=== PATIENT | female | born 1955 | race Caucasian/White ===

== ENCOUNTER 2023-12-12 14:40 | Inpatient (IN) | payer MEDICARE, BC, OTHER, SELFPAY ==
[2023-12-12] VITALS (26 sets, daily range): BP systolic 106–173; BP diastolic 63–111; BMI 25.8; BMI 29.6
--- NOTE | 2023-12-12 10:47 | ED.GENMED ---
History of Present Illness
General
Chief Complaint: Change in Mental Status
Source: patient and ambulance crew
Exam Limitations: altered mental status
Time Seen by Provider: 12/12/23 10:37
Nursing documentation reviewed up to this point in time: agreed with
Travel History
Have you had any contact with someone who has COVID-19?: Yes
Comment: roommates
Do you have any symptoms of coronavirus? Fever > 100 degrees, chills, cough, shortness of breath, sore throat, loss of taste or smell, muscle aches, or headache?: Unable to Answer
Symptoms:: change in mental status
History of Present Illness
History of Present Illness:
68-year-old female presents the emergency department due to altered mental status. Her baseline status is unknown. This morning it was noted that she was not acting herself, confused with decreased responsiveness. Patient answers questions and
knows her birthday, and denies complaints.
Past History
Past History
ED Past Medical History: CHF, CVA, HTN, Hypercholesterolemia, IDDM, Renal failure (Chronic kidney disease) and Other (Cellulitis, bacteremia, morbid obesity, chronic lower extremity dermatitis, chronic ambulatory dysfunction, right lower extremity
DVT)
ED Past Surgical History: Other
Social History
Tobacco: Non-smoker
Alcohol: None
Drug: None
Living: half-way
Employment: Retired
Family History
Family History: Other and Unable to obtain
Review of Systems
Review of Systems
Allergies reviewed?: Yes
All Other Systems: Not applicable
Phy Exam
Physical Exam
Physical Exam:
Physical Exam
General: Afebrile
Neck: supple. no meningeal signs. normal posterior pharynx
Heart: s1/s2 bradycardia, no murmur. equal radial
pulses.
HEENT: Pupils equal round reactive to light, EOMI
Lungs: no acute respiratory distress. clear bilaterally
Abdomen: normal bowel sounds. not tender. no CVAT
Neuro: alert and oriented to person and birthday. no focal neurological deficits cranial nerves II through XII intact, left hand contracted
Skin: no rash
Psychiatric: Answers questions to her name
Extremities: no edema. no calf tenderness. negative homans. good distal pulses
Scores
NIH Stroke Score
Level of Consciousness: 1 - Arousable
LOC Questions: 2-Neither correct
LOC Commands: 0-Performs both correctly
Best Horizontal Gaze: 0-Normal
Visual Del Toro: 0=Normal, no visual loss
Facial Palsy: 0=Normal, symmetrical
Motor - Right Arm: 0=No drift 10 seconds
Motor - Left Arm: 0=No drift 10 seconds
Motor - Right Le-No drift 5 seconds
Motor - Left Le-No drift 5 seconds
Limb Ataxia: 0-Absent
Sensation: 0-Normal
Best Language: 1-Mild aphasia
Dysarthria: 1-Mild slurring
Extinction and Inattention: 0-No abnormality
Total Score:: 5
MRS Score
Modified [place] Scale (mRS): Moderately severe disability. Unable to attend to bodily needs/walk.
Score: 4
Thrombolytic Contraindication
Inclusion and Exclusion criteria reviewed: Yes
Reasons for NON-Tx with Thrombolytics ABSOLUTE Exclusions: Patient taking oral anticoagulant and last dose within 48 hours
Course
Orders/Labs/Results
Orders:
Orders
12/12/23 Breakfast
NPO
Allow oral meds: Yes
Allow clear liquids: No
12/12/23 10:44
Straight cath- Treatment ONCE
12/12/23 10:46
CT Head W/o Iv Contrast Urgent
Comment:
Reason For Exam: altered mental status
12/12/23 10:47
Electrocardiogram (*1) Urgent
Reason for Study: Bradycardia / Tachycardia
EKG- Treatment ONCE
12/12/23 10:54
Ammonia Urgent
COVID-19 Antigen Urgent
Source: Nasal Swab
Cardiovascular Evaluation Urgent
Complete Blood Count/With Diff Urgent
Comprehensive Metabolic Panel Urgent
Ferritin Urgent
Folate Urgent
Glycohemoglobin (HgbA1c) Urgent
Lactic Acid Q4H
Comment: CANCEL 2nd LACTIC ACID IF 1st LACTIC ACID IS LESS THAN 2
TSH Reflex To Free T4 Urgent
Vitamin B12 Urgent
Blood Culture Q30M
DARBY Source: Blood/Venous
Specimen Description:
Blood Culture Q30M
DARBY Source: Blood/Venous
Specimen Description:
Influenza A+B Rapid Molecular Urgent
DARBY Source: Nasal Swab
Specimen Description:
12/12/23 10:59
Urinalysis Reflex To Culture Urgent
Date Specimen was Collected: 12/12/23
Time Specimen was Collected: 10:58
Urine Microscopic Reflex Cult Urgent
Urine Culture Urgent
DARBY Source: U
Specimen Description:
Date Specimen was Collected: 12/12/23
Time Specimen was Collected: 10:58
12/12/23 11:11
CR Chest Portable - 1 View Urgent
Comment:
Reason For Exam: hypoxia
Reason Study Needs to be Portable: Patient Unstable
12/12/23 13:21
EEG Routine Routine
Reason for Exam: change in mental status
12/12/23 13:29
MR Brain Without Contrast Routine
Comment:
Reason For Exam: new stroke
Recent pill cam endoscopy?: No
US Cerebrovascular Routine
Comment:
Reason For Exam: New stroke
12/12/23 13:30
[facility] Routine
Comment:
Reason For Exam: new stroke, blind?
Recent pill cam endoscopy?: No
12/12/23 14:05
Add On- LAB Routine
Tests Added?: folate, ferritin, TSH reflex, B12, lipid panel, hbA1c
12/12/23 14:12
Admit/Transfer Patient As Directed
Co-Sign Provider:
Level of Care: Inpatient admission
Assign to:: IMU- Intermediate Care
Physician / Group: yaya gray
Diagnosis: CVA
Reason for Hospitalization: CVA
Expected length of stay greater than two midnights?: Yes
ELOS- Estimated Length of Stay in days: 3
I certify the patient meets the requirements for IP care: Yes
12/12/23 14:13
Code Status As Directed
Resuscitation Status: Full Code
Clopidogrel Bisulfate [Plavix] 300 mg PO NOW STA
12/12/23 14:40
DNR Bracelet Application ONCE
12/12/23 14:40
Code Status As Directed
Resuscitation Status: Do not resuscitate
Reached after discussion with pt or family/Healthcare POA: Yes
12/12/23 14:42
CARDIOLOGY CONSULT Routine
Consulting Provider: Serafin Nguyen
Was physician already notified: Yes
NEUROLOGY CONSULT Urgent
Consulting Provider: Black Lorenzo
Was physician already notified: Yes
12/12/23 15:28
Procalcitonin Stat
PCT Algorithmm Indication: Respiratory
12/12/23 17:35
Acetaminophen [Tylenol/Feverall] 650 mg RECTAL Q4HPRN PRN
Acetaminophen [Tylenol] 650 mg PO Q4HPRN PRN
Dextrose 50%-Water [Dextrose 50% Syringe] 12.5 grams IV [id number] PRN
Glucagon [GlucaGen] 1 mg IM PRN PRN
Insulin Aspart Corrective Low [Novolog Flexpen-Low Resistance] See Protocol SC AC
12/12/23 17:35
Case Management Consult ONCE
Case Management Consult: Discharge Planning
Comment: stroke/tia
DIETARY CONSULT Routine
Reason for Consult: stroke/TIA
Cam Maker Urgent
Activity As Directed
Activity Level: As Tolerated
Bedside Glucose Monitoring As Directed
Frequency: AC&HS
Comment: Change to q6h if pt on TPN, tube feeding or not eating
NIH Stroke Scale As Directed
Directions: Per protocol
Comment: every shift and with any change in condition or mental status
Neurological Checks As Directed
Frequency: q4h
Additional Instructions:: q4h x 24h upon admission to the floor, then qshift & with any change in condition
and mental status
Patient Education As Directed
Type: Stroke education packet
Comment: provide to patient and family
Pneumatic Compression Sleeves As Directed
Type: Thigh high
Swallow Screening CVA/TIA ONLY As Directed
Comment: NPO until swallowing screening completed
If patient FAILS swallow screening:: NPO, Speech Therapy consult, Aspiration Precautions
If patient PASSES swallow screening, diet:: 1600 [address]/ 13 CHO Diabetic
Vital Signs As Directed
Frequency: Per unit guidelines
Ot Eval And Treat Routine
Pt Eval And Treat Routine
Activity Level: As Tolerated
Speech Therapy Eval & Treat Routine
DX Deep Vein Thrombosis Video Routine
12/12/23 18:00
Artificial Tears (Pf) [Refresh Eye Drops (Pf)] 1 drops BOTH EYES QID
Piperacillin/Tazo 2.25 Gram [Zosyn] 2.25 grams in 50 ml IV Q6H
12/12/23 19:00
Atorvastatin [Lipitor] 40 mg PO QPM
12/13/23 05:40
Basic Metabolic Panel IN AM
Complete Blood Count/No Diff IN AM
12/14/23 05:48
Complete Blood Count/No Diff IN AM
12/15/23 06:00
Basic Metabolic Panel IN AM
Complete Blood Count/No Diff IN AM
12/16/23 06:00
Basic Metabolic Panel IN AM
Complete Blood Count/No Diff IN AM
12/17/23 06:00
Basic Metabolic Panel IN AM
Complete Blood Count/No Diff IN AM
Abnormal Lab Results
12/12/23 12/12/23
10:54 10:59
MPV 11.8 H fL
(7.4-10.4)
Absolute Neuts (auto) 7.4 H 10^3/uL
(1.4-6.5)
Neutrophils % 77.4 H %
(42.2-75.2)
Lymphocytes % 14.1 L %
(20.5-51.1)
BUN 65 H mg/dl
(7-17)
Creatinine 2.1 H mg/dL
(0.6-1.0)
Glucose 180 H mg/dl
(70-99)
Hemoglobin A1c 8.1 H %
(4.0-5.6)
Ferritin 432.0 H ng/ml
(11.1-264.0)
Alkaline Phosphatase 129 H U/L
(38-126)
Ammonia < 9 L umol/L
(9-30)
Leukocyte Esterase Rfl 1+ A
(Negative)
Urine Bacteria (Reflex) Few A
(Negative)
12/12/23 10:54
12/12/23 10:54
Vital Signs
Initial and Last Documented VS:
Initial Vital Signs
Pulse Resp BP Pulse Ox
42 16 114/79 100
12/12/23 10:31 12/12/23 10:31 12/12/23 10:31 12/12/23 10:31
Last Documented Vital Signs
Temp Pulse Resp BP Pulse Ox
97.9 F 61 14 170/97 94
12/14/23 15:33 12/14/23 12:00 12/14/23 12:00 12/14/23 12:00 12/14/23 08:00
MDM/Problems Addressed
Differential Diagnosis Includes:
Acute CVA, intracranial hemorrhage, slow atrial fibrillation
MDM/Problems Addressed:
68-year-old female with atrial fibrillation with slow ventricular response, acute CVA, unclear last known normal, taking Eliquis, not a candidate for IAT or TNK based on Eliquis treatment as well as no lateralizing symptoms and MRS greater than 3.
Chronic conditions affecting care: DM, HTN, Arrhythmia, Neurological disorder (Prior CVA) and Kidney disease
Acute Exacerbation and/or Progression of Chronic Illness: DM, HTN, Arrhythmia, Neurological disorder (Prior CVA) and Kidney disease
*Radiology
Radiology exam reviewed: radiology read reviewed (CT head shows suspected acute infarct in the left parieto-occipital lobe)
*Pulse Oximetry
Patient hypoxic: no
*EKG
Interpreted by ED Provider?: Yes
EKG Intrepretation Date: 12/14/23
EKG Intrepretation Time: 11:04
Interpretation: abnormal
Comparison EKG: changes noted
Heart Rate: 47
Rate: bradycardiac
Rhythm: a-fib
[place]: normal axis
Interval: normal interval
QRS Pattern: normal QRS
Ischemia: no ischemia
*Personalized Living Manager Nurse Interpretation
Rate: bradycardiac
Heart Rate: 44
Rhythm: a-fib
*Critical Care Note
Total Time (30-74mins, 75-104mins- exclusive of procedures): 30
comment:
Critical care statement: A total of 30 minutes of critical care time was provided for this patient. This includes management of unstable vital signs, evaluation of the patient at bedside, reviewing the patient's pertinent medical records, discussion
with consultants, review of old EKGs and review of pertinent medical records. This time with separate from time utilized to perform the aforementioned documented procedures
Data Reviewed
Review of Other/Old Records Reveals: Labs (Prior creatinine 6.1 on 08/27/2022)
Source: records
Prescriptions/Medications Considered But Not Given:
TNK considered, but not indicated
Patient Management
Social determinants of health affecting care: Living situation
Discussion with other providers: Hospitalist and Bladder Cleaner (Neurology, Dr. Lorenzo)
Escalation/DeEscalation of care consider admission/obs:
Admit indicated
ED Attending Note
-
Portions of this chart may have been created with voice recognition software.� Occasional wrong word or��sound alike� substitutions may have occurred due to the inherent limitations of voice recognition software.
Discharge Plan
Departure
Patient Disposition: Admit
Date of Disposition: 12/12/23
Time of Disposition: 12:11
Admit to: IMU
Presentation/result/management discussed w/ accepting MD/DO: Hospitalist
Patient with high blood pressure during this ER visit?: No
Condition: Fair
Discharge Problem:
Acute cerebrovascular accident (CVA), Atrial fibrillation with slow ventricular response
Interventions
Interventions:
*Risk Screen - Suicide Last Done: 12/12/23 10:31
*General Assessment Last Done: 12/12/23 10:31
*Neglect/Abuse Screening Last Done: 12/12/23 10:31
*ED COVID-19 Vaccine History Last Done: 12/12/23 10:31
*Nursing Disposition Last Done: 12/12/23 17:46
ED- Pulmonary Assessment Last Done: 12/12/23 11:53
ED- Neurological Assessment Last Done: 12/12/23 11:53
ED- Cardiac Assessment Last Done: 12/12/23 11:53
ED Swallowing Screen Last Done: 12/12/23 11:53
Discharge Date and Time
Discharge Date/Time: 12/12/23 17:47
[2023-12-12 11:06] LABS: % Basophils 0.5 % (0-2); % Eosinophils 2.1 % (0-6); % Immature Granulocytes 0.3 % (0-0.5); % Lymphocytes 14.1 % (20.5-51.1); % Monocytes 5.6 % (1.7-9.3); % Neutrophils 77.4 % (42.2-75.2); Absolute Basophils 0.1 10^3/uL (0-0.2); Absolute Eosinophils 0.2 10^3/uL (0-0.7); Absolute Lymphocytes 1.4 10^3/uL (1.2-3.4); Absolute Monocytes 0.5 10^3/uL (0.1-0.6); Absolute Neutrophils 7.4 10^3/uL (1.4-6.5); Hematocrit 39.3 % (37.0-47.0); Mean Corp Hgb Conc. 33.1 g/dL (33.0-37.0); Mean Corpuscular Hgb 28.9 pg (27.0-31.0); Mean Corpuscular Volume 87.3 fL (81.0-99.0); Mean Platelet Volume 11.8 fL (7.4-10.4); Nucleated Red Blood Cells % 0 %; Platelet Count 226 10^3/uL (130-400); White Blood Cell Count 9.6 10^3/uL (4.8-10.8)
[2023-12-12 11:17] LABS: ALT (SGPT) 13 U/L (0-35); AST (SGOT) 17 U/L (14-36); Albumin 3.9 g/dl (3.5-5.0); Alkaline Phosphatase 129 U/L (38-126); Blood Urea Nitrogen 65 mg/dl (7-17); Calcium 9.5 mg/dl (8.4-10.2); Carbon Dioxide 23 mmol/L (22-30); Chloride 107 mmol/L (98-107); Estimated Creatinine Clearance 23 ml/min; Glucose 180 mg/dl (70-99); Potassium 4.2 mmol/L (3.5-5.1); Sodium 138 mmol/L (135-145); Total Bilirubin 0.4 mg/dl (0.2-1.3); Total Protein 7.3 g/dl (6.3-8.2); eGFR 25.04
[2023-12-12 11:18] LABS: Urine Albumin Trace (Neg - Trace); Urine Bilirubin Negative (Negative); Urine Character Clear (Clear); Urine Color Yellow; Urine Glucose Negative (Negative); Urine Ketone Negative (Negative); Urine Leukocyte 1+ (Negative); Urine Nitrite Negative (Negative); Urine Occult Blood Negative (Negative); Urine Urobilinogen Negative (Neg - 1+)
[2023-12-12 11:18] LABS: Ammonia < 9 umol/L (9-30); Lactic Acid 1.2 mmol/L (0.7-2.0)
[2023-12-12 11:25] LABS: COVID-19 Antigen Negative (Negative)
[2023-12-12 11:53] LABS: Urine Bacteria Few (Negative); Urine Red Blood Cell 0-2 /HPF (0-2); Urine Squamous Cell 0-2 /LPF (Few)
--- NOTE | 2023-12-12 12:40 | CON.NEURO4 ---
Addendum entered and electronically signed by Black Lorenzo MD 12/12/23 14:42:
I saw and evaluate the patient reviewed note by Jacqueline Snow agree with the findings the following comments:
Patient is a 68-year-old woman with a past medical history of previous left-sided ischemic stroke, hypertension, hyperlipidemia, diabetes mellitus, CKD, peripheral neuropathy, morbid obesity presented to hospital with change in mental status and
concern for acute stroke. Speaking with the [facility] staff that she has baseline generally wheelchair-bound but typically can hold conversation with some orientation deficits. Last known normal is unclear but possibly as early as 7 AM this
morning shortly after this noted to not be conversational after nap, in the ER noted to be bradycardic. Last dose of Eliquis was this morning. Patient unable to give any reliable history due to mental status difficulty and aphasia.
Neurologic examination shows a patient who is drowsy but awakens easily with some mild noxious stimulation she is able to say her name and says the correct month and day of her birthdate but not the correct year, she does show perseveration showing
evidence of aphasia.
There is mild dysarthria, resting gaze is midline extraocular's are full, he has no blink to threat in any quadrant of vision and appears to have significant visual loss in both eyes, pupils are 3 mm and do not show any appreciable reaction to light
bilaterally. Smile is symmetric.
Arms raise and symmetric manner with no pronator drift and 5/5 shoulder abduction, 4/5 hip flexion bilaterally no asymmetric motor deficits seen.
CT head noncontrast shows a acute left parietal occipital ischemic stroke without hemorrhage.
Assessment: Likely new left-sided ischemic stroke producing aphasia and confusion, risk factors include CHF atrial fibrillation hypertension diabetes and previous stroke. Appears to have significant visual loss possibly from baseline. Would not be
a candidate for thrombolytics given Eliquis dose this morning and does not have any lateralizing deficits in addition to modified [place] scale of 3 or more baseline so she would not be a thrombectomy candidate.
Recommendations
-Will need speech therapy evaluation for dysarthria and dysphagia
-Recommend NG tube for antiplatelet clopidogrel 300 mg once and then 75 mg daily given acute ischemic stroke as appears aspirin produces anaphylaxis
-Hold Eliquis
-Permissive hypertension goal less than 220/120 until tomorrow morning
-Check carotid ultrasound
-Check MRI of the brain and MRA of the head without contrast
-Monitor on cardiac telemetry
-Check TTE
-Neurologic checks and NIH scales
-Goal normoglycemia
Will follow
Original Note:
Documented by User: Jacqueline Doherty NP 12/12/23 14:14
Consultation - Neurology 4
-
CONSULTING PHYSICIAN: Joana Lorenzo MD
REFERRING PHYSICIAN: ER/Dr. Hillman
DICTATED BY: MARY Del Castillo
DATE/TIME OF REQUEST: 12/12/23
DATE/TIME OF CONSULTATION: 12/12/23
Reason for Consultation: Change in mental status
History of Present Illness:
This is a 68-year-old female who has presented to the hospital from [facility] with report of a change in mental status. Patient is unable to provide any information and this information is obtained from medical records and [facility] nursing
staff. MD staff report that at baseline, the patient is wheelchair bound. She is typically alert, oriented x2-3, and can hold a conversation. Staff report that yesterday (12/11/23) she seemed at her baseline. This morning (12/12/23), she woke up
around 0700 and seemed at her baseline, she was able to take her medications including her Eliquis. Staff report that her breakfast arrived about an hour or so later and she didn't eat anything. Then she appeared to be napping for a couple of hours.
They went to check on her and she seemed minimally responsive/wasn't able to converse as usual, prompting them to send her to the ER for evaluation. CT head was obtained in the ER and is suggestive of an acute left parieto-occipital lobe ischemic
stroke. She is notably bradycardic in the 40's-50's. She is not a candidate for TNK/IAT due to her last dose of Eliquis was this morning, clear demonstration of a stroke already on CT head imaging, and no evidence of LVO. NIHSS is an 11. Patient is
unable to stay alert to provide answers to review of systems questions. There is no documented history of Afib.
Past Medical History: Chronic right parieto-occipital lobe ischemic infarcts, CHF, HTN, HLD, NIDDM requiring insulin, retinopathy, neuropathy, CKD 3, Cellulitis, bacteremia, morbid obesity, chronic lower extremity dermatitis/lymphedema/venous
stasis, chronic ambulatory dysfunction, right lower extremity DVT, anemia
Surgical History: Unknown.
Family History: Unknown.
Social History: No tobacco, alcohol, or illicit drug use.
Allergies: Aspirin, Vancomycin, pneumococcal vaccine, latex, coconut, adhesive tape.
Home Medications: See below.
Review of Symptoms:
�Per the HPI.�Unable to obtain a ROS due to altered mental status.
Physical Exam:
The patient is afebrile, abdomen is nondistended, breathing is unlabored, skin is cool and dry, no edema. PVD discoloration BLE. She is bradycardic in the 40's-50's on cardiac monitoring.
NIH Stroke Scale:
I performed the NIH stroke scale on the patient on 12/12/23 at 1300. The patient scored 11 points on the NIH stroke scale assessment, which were assigned as follows:
Neurologic Examination:
The patient is obtunded. She opens eyes to very loud voice/touch. She is oriented to name only, not month/year/place. She is able to follow intermittent one-step commands and answer occasional one word answer questions appropriately. There is no
apparent aphasia or dysarthria. On cranial nerve assessment, pupils are 2 mm bilateral, round and non-reactive to light and accommodation. Visual del toro appear completely absent, does not blink to threat. +Corneal reflexes. No apparent gaze
deviation but does not follow commands to assess EOMs and does not track. Unable to answer if she is seeing light or color. There is no facial asymmetry. Hearing is intact bilaterally to normal conversation volume. Tongue palate and uvula are
midline. Motor strengths are 4/5 bilateral upper and lower extremities on medical research [place] scale. There is drift in all 4 extremities. No involuntary movement noted. Deep tendon reflexes are 1+ bilateral upper and lower extremities and
Babinski is absent bilaterally. IVONE sensation and DBS. Gave up attempting to touch her nose bilaterally before nearing her nose.
Lab Results: See below.
Neuro Imaging:
1. CT head 12/12/23: Suspected acute infarct within the left parieto-occipital lobe, new compared to prior CT dated 09/15/2021. Atrophy and small vessel ischemic change, stable compared to prior head CT.
2. MRI brain 09/26/20: Scattered chronic infarcts involving the right posterior parieto-occipital regions and the right periventricular fermin radiata. Moderate diffuse parenchymal atrophy and presumed changes of mild chronic microangiopathic
ischemia.
Differentials for the patient's presentation include:
1. Encephalopathy likely secondary to an acute/subacute left parieto-occipital ischemic infarct.
2. Multiple chronic right parieto-occipital and periventricular fermin radiate ischemic infarcts.
3. Concern for new complete blindness secondary to multiple occipital ischemic infarcts, baseline low vision per NH staff.
4. Bradycardia.
Patient has the following risk factors for their symptoms: Hx stroke, HTN, HLD, NIDDM
IV Tenecteplase/IAT candidacy: She is not a candidate for TNK/IAT due to her last dose of Eliquis was this morning, clear demonstration of a stroke already on CT head imaging, and no evidence of LVO.
Recommendations:
-Hold Eliquis. Unclear what her allergy to aspirin is. Provide Plavix 300mg x1 now due to possible aspirin allergy.
-Permissive hypertension until tomorrow 12/13/23 at 0800.
-Routine EEG ordered/pending.
-MRI brain, MRA COW ordered/pending.
-Carotid ultrasound ordered/pending.
-NIHSS and neurological checks per unit guidelines.
-Checking blood work for metabolic abnormalities.
-LDL goal <70. Lipid panel pending. Continue home atorvastatin 40mg daily when cleared for oral intake.
-Goal normoglycemia, hbA1c is pending.
-PT/OT/ST evaluations.
-DVT prophylaxis.
-Will follow pending results.
Discussed patient care with: Dr. Lorenzo, Dr. Hillman
Vital Signs and Labs
-
Vital Signs and Labs:
Vital Signs
Pulse Resp BP Pulse Ox
49 15 129/68 98
12/12/23 13:15 12/12/23 13:15 12/12/23 13:15 12/12/23 13:15
Lab Results
12/12/23 10:54
12/12/23 10:54
Sodium 138 mmol/L (135-145) 12/12/23 10:54
Potassium 4.2 mmol/L (3.5-5.1) 12/12/23 10:54
BUN 65 mg/dl (7-17) H 12/12/23 10:54
Glucose 180 mg/dl (70-99) H 12/12/23 10:54
Calcium 9.5 mg/dl (8.4-10.2) 12/12/23 10:54
Medications
-
Home Medications
�Medication �Instructions �Recorded
apixaban 5 mg tablet (Eliquis) 5 mg PO BID cerebral infarction 08/18/21
polyethylene glycol 3350 17 gram 17 g PO DAILY PRN constipation 09/15/21
oral powder packet
sertraline 50 mg tablet 50 mg PO DAILY Depression 09/15/21
sorbitol 70 % solution 30 ml PO DAILY PRN constipation 09/15/21
polyvinyl alcohol-povidone (PF) 1 drops BOTH EYES QID Eye condition 12/25/21
1.4 %-0.6 % eye drops in a
dropperette (Refresh Classic (PF))
acetaminophen 325 mg tablet 650 mg PO Q6HPRN PRN mild pain, 01/23/22
temp>100.4
atorvastatin 20 mg tablet 40 mg PO QPM High cholesterol 01/23/22
bisacodyl 10 mg rectal suppository 10 mg CA DAILYPRN PRN if no bm 01/23/22
(OneLAX Bisacodyl) aftr mom
insulin aspart U-100 100 unit/mL 0 - 10 sliding scale dose SC AC 08/26/22
(3 mL) subcutaneous pen (Novolog Diabetes
FlexPen U-100 Insulin aspart)
sodium bicarbonate 650 mg tablet 650 mg PO BID gastro-esophageal 08/26/22
reflux disease
docusate sodium 100 mg capsule 100 mg PO BID Constipation 12/12/23
insulin aspart U-100 100 unit/mL 4 units SC AC Diabetes 12/12/23
(3 mL) subcutaneous pen (Novolog
FlexPen U-100 Insulin aspart)
insulin glargine 100 unit/mL (3 5 unit SC HS Diabetes 12/12/23
mL) subcutaneous pen (Lantus
Solostar U-100 Insulin)
isosorbide mononitrate 60 mg 60 mg PO DAILY Heart Condition 12/12/23
tablet,extended release 24 hr
lisinopril 20 mg tablet 20 mg PO DAILY Blood Pressure 12/12/23
nystatin 100,000 unit/gram topical 1 applic topical BID RIGHT ARMPIT 12/12/23
powder (Nystop) FUNGAL INFECTION
sennosides 8.6 mg-docusate sodium 2 tab-cap PO HS Constipation 12/12/23
50 mg tablet (Senna-S)
torsemide 40 mg tablet 40 mg PO DAILY Fluid 12/12/23
Retention/Swelling
NIH Stroke Score
Subsequent NIH Scale
Date of Subsequent NIH Scale: 12/12/23
Time of Subsequent NIH Scale: 13:00
NIH Stroke Score
Level of Consciousness: 2 - Obtunded
LOC Questions: 2-Neither correct
LOC Commands: 0-Performs both correctly
Best Horizontal Gaze: 0-Normal (IVONE, no gaze deviation)
Visual [place]: 3=Bilateral hemianopia (appears blind, does not blink to threat)
Facial Palsy: 0=Normal, symmetrical
Motor - Right Arm: 1=Drift < 10 seconds
Motor - Left Arm: 1=Drift < 10 seconds
Motor - Right Le-Drift < 5 seconds
Motor - Left Le-Drift < 5 seconds
Limb Ataxia: 0-Absent
Sensation: 0-Normal
Best Language: 0-No aphasia
Dysarthria: 0-Normal
Extinction and Inattention: 0-No abnormality
Total Score:: 11
Modified [place] (mRS) Score
Modified [place] Scale (mRS): Moderately severe disability. Unable to attend to bodily needs/walk.
Score: 4

Documented by User: Black Lorenzo MD 12/12/23 14:27
NIH Stroke Score
NIH Stroke Score
Total Score:: 11
Modified [place] (mRS) Score
Score: 4
--- NOTE | 2023-12-12 13:51 | HPS.HSE ---
Family Physician
-
Family Physician: Tirso Chaidez, DO
Chief Complaint
-
confusion
History of Present Illness
68-year-old with past medical history for congestive heart failure, CVA, hypertension, hyperlipidemia, type 2 diabetes, renal failure, DVT presented to us with change in mental status and decreased responsiveness. Review of system is very limited.
Patient opens her eyes. but not able to answer any questions appropriately.
Attempted to reach [facility] with no response.
Head CT with acute CVA. Admitting for further management
Medical History
Past Medical History
Past Medical History: Reports Other
Additional Past Medical History:
GI bleed
Chronic kidney disease stage
Congestive heart failure
Paroxysmal A-fib
Hypertension
Hyperlipidemia
Type 2 diabetes
Depression
GERD
Past Surgical History: Reports Other
Social History
Unable to obtain full social history at this time due to: Acuity
Family History
Family History: Not pertinent
Allergies / Home Medications
Allergies reflects when Allergies were last updated in [employer].
Home Medications with original date entered in [employer]
Allergy/Medication List:
Allergies
Allergy/AdvReac Type Severity Reaction Status Date / Time
adhesive tape Allergy Rash Verified 12/26/21 17:23
aspirin Allergy Unknown Verified 12/25/21 09:40
coconut Allergy Rash Verified 12/26/21 17:23
latex Allergy Rash Verified 12/26/21 17:23
pneumococcal vaccine Allergy Unknown Verified 12/25/21 09:40
vancomycin Allergy Unknown Verified 12/25/21 09:40
Home Medications
apixaban 5 mg tablet (Eliquis) 5 mg PO BID cerebral infarction 08/18/21
polyethylene glycol 3350 17 gram oral powder packet 17 g PO DAILY PRN constipation 09/15/21
sertraline 50 mg tablet 50 mg PO DAILY Depression 09/15/21
sorbitol 70 % solution 30 ml PO DAILY PRN constipation 09/15/21
polyvinyl alcohol-povidone (PF) 1.4 %-0.6 % eye drops in a dropperette (Refresh Classic (PF)) 1 drops BOTH EYES QID Eye condition 12/25/21
acetaminophen 325 mg tablet 650 mg PO Q6HPRN PRN mild pain, temp>100.4 01/23/22
atorvastatin 20 mg tablet 40 mg PO QPM High cholesterol 01/23/22
bisacodyl 10 mg rectal suppository (OneLAX Bisacodyl) 10 mg NM DAILYPRN PRN if no bm aftr mom 01/23/22
insulin aspart U-100 100 unit/mL (3 mL) subcutaneous pen (Novolog FlexPen U-100 Insulin aspart) 0 - 10 sliding scale dose SC AC Diabetes 08/26/22
sodium bicarbonate 650 mg tablet 650 mg PO BID gastro-esophageal reflux disease 08/26/22
docusate sodium 100 mg capsule 100 mg PO BID Constipation 12/12/23
insulin aspart U-100 100 unit/mL (3 mL) subcutaneous pen (Novolog FlexPen U-100 Insulin aspart) 4 units SC AC Diabetes 12/12/23
insulin glargine 100 unit/mL (3 mL) subcutaneous pen (Lantus Solostar U-100 Insulin) 5 unit SC HS Diabetes 12/12/23
isosorbide mononitrate 60 mg tablet,extended release 24 hr 60 mg PO DAILY Heart Condition 12/12/23
lisinopril 20 mg tablet 20 mg PO DAILY Blood Pressure 12/12/23
nystatin 100,000 unit/gram topical powder (Nystop) 1 applic topical BID RIGHT ARMPIT FUNGAL INFECTION 12/12/23
sennosides 8.6 mg-docusate sodium 50 mg tablet (Senna-S) 2 tab-cap PO HS Constipation 12/12/23
torsemide 40 mg tablet 40 mg PO DAILY Fluid Retention/Swelling 12/12/23
Review of Systems
-
Unable to obtain full review of systems at this time due to: Acuity
Physical Exam
Vital Signs
Vital Signs
Pulse Resp BP Pulse Ox
49 15 129/68 98
12/12/23 13:15 12/12/23 13:15 12/12/23 13:15 12/12/23 13:15
Physical Exam
General: Well Developed, Well Nourished and No Apparent Distress
HEENT: NormoCephalic, Moist mucous membranes and Atraumatic
Respiratory: Clear
Cardiac: Irregular Rhythm; No Murmur or Rub
GI: Soft, Non Tender, Non Distended and Normal Bowel Sounds; No Organomegaly
Rectal: Deferred by Provider
Musculoskeletal: No Clubbing, No Cyanosis and No Edema
Skin: No Rash
Neuro: Nonfocal/grossly intact
Psych: Calm
Laboratory Results
-
12/12/23 10:54
12/12/23 10:54
Laboratory Results
Lactic Acid Cancelled 12/12/23 14:45
Total Bilirubin 0.4 mg/dl (0.2-1.3) 12/12/23 10:54
AST 17 U/L (14-36) 12/12/23 10:54
ALT 13 U/L (0-35) 12/12/23 10:54
Alkaline Phosphatase 129 U/L (38-126) H 12/12/23 10:54
Data Reviewed
-
CT Scan: Report Reviewed by me
Lab Data: Labs Reviewed by me
Impression/Plan
-
#encephalopathy likely from Acute CVA
#hxt of CVA
-Head CT with impression of Suspected acute infarct within the left parieto-occipital lobe, new compared to prior CT dated 09/15/2021. Atrophy and small vessel ischemic change, stable compared to prior head CT.
-Stroke protocol
-plavix in ER,patient allergic to asa
-Obtain A1c, lipid profile
-PT/OT consult
-MRI/MRA
-EEG
-Ultrasound of carotid
-allow permissive htn
-Neurology consult
# A-fib with slow ventricular response
-EKG with impression of A-fib with slow ventricular response
-Eliquis hold
-Cardiology consult
# Possible aspiration pneumonia
-Chest x-ray with impression of Haziness of left hemidiaphragm, which may be related to left lower lobe subsegmental atelectasis, aspiration, or pneumonia
-IV Zosyn
-Obtain procalcitonin
-Blood culture sent from ER
-Patient oxygenating very well on room air
-Speech consulted
# Chronic kidney disease 3b
-cr 2.1
-ctm
#History of RLE DVT (February 2021)
#Chronic heart failure preserved EF -stable.
-Not in acute exacerbation
-Torsemide held
#Essential hypertension -stable.
-Isosorbide, lisinopril held for permissive hypertension
#Hyperlipidemia -on atorvastatin.
#DM2 without hyperglycemia
-Sliding scale
-Hold Lantus
#Depression
-Hold sertraline until patient fully awake
#Blindness
#Chronic Ambulatory Dysfunction
#Chronic Lymphedema and Venous Stasis bilateral lower extremities
# Full code
[2023-12-12 14:20] LABS: HDL Cholesterol 40 mg/dl; LDL Cholesterol, Calculated 125 mg/dl; Total Cholesterol 186 mg/dl (50-199); Triglyceride 105 mg/dl (10-149); Very Low Density Lipoprotein 21 mg/dl (0-30)
--- NOTE | 2023-12-12 15:16 | W.PN.UPDATE ---
Update Note
Progress Note Update
This note is in addition to SUPERVISOR COREMAKER's H and P
I saw and examined the patient.
The SUPERVISOR COREMAKER or PA's note was reviewed and I agree with the note.
Comment: 68-year-old female with past medical history of CVA, chronic ambulatory dysfunction, atrial fibrillation, CKD, hypertension, lipidemia, type 2 diabetes mellitus, depression, GERD came to the hospital from [facility] with change in mental
status and decreased responsiveness. History was very limited as patient only responding to name. In the ED CAT scan was consistent with possible stroke. MRI pending. Seen by neurology and ordered Plavix. Patient is unable to tolerate p.o. at
this time so will get NG tube. Anaphylactic reaction with aspirin. Hold Eliquis at this time. Permissive hypertension. check EEG. Tried calling daughter, unreachable. Patient does have CKD. Chest x-ray noted, will start Zosyn for now. Tried
calling [facility] that is also reachable. per ED RN she is DNR as she confirmed with [facility]
Permissive hypertension goal less than 220/120 until tomorrow morning
General: Well Developed, Well Nourished
HEENT: NormoCephalic, Moist mucous membranes and Atraumatic
Respiratory: Clear
Cardiac: Irregular Rhythm
GI: Soft, Non Tender
Rectal: Deferred by Provider
Musculoskeletal: No Edema
Neuro:AAOx1, spontaneously move upper extremity at times
Psych: Calm
I spent a total of 78 minutes with the patient or on the floor. More than 50% of this time involved counseling and coordination of care.
[2023-12-12 15:20] LABS: TSH Reflex To Free T4 1.35 uIU/ml (0.47-4.68)
[2023-12-12] MEDS: PLAVIX 300 MG TUBE (15:24)
[2023-12-12 15:55] LABS: Folate 5.4 ng/ml (2.76-20); Vitamin B12 671 pg/ml (239-931)
--- NOTE | 2023-12-12 16:05 | CON.CAR ---
Addendum entered and electronically signed by Serafin Nguyen MD 12/12/23 17:24:
68 yo female with PMH of long standing persistent A fib on eliquis, ASA allergy, prior CVA, now admitted with decreased responsiveness, and found to have acute infarct within the left parieto-occipital lobe. Neurology has been consulted. Exam with
irregular rhythm. EKG: A fib 47.
CVA eval per neurology with MRI, carotids. Given ASA allergy, Plavix was added by neurology.
Eliquis can be held in the acute setting of CVA, and resumed when safe per neurology.
Please call us back with additional questions.
Original Note:
Consultation
Consultation Request
Date/Time Consultation Requested: 12/12/23 1442
Date/Time Consultation Performed: 12/12/23 1600
Requesting Provider: Oanh Wiggins
Performing Provider: Melina HERNANDEZ for Dr. Nguyen
Reason for Consultation: CVA, AFIB
Medical History
-
Chief Complaint: Change in MS
History of Present Illness:
68 y/o female with hx CVA, prior DVT on Eliquis, hypertension, obesity, DM2 on insulin, HFpEF, and blindness who lives in a [facility] and was sent here for evaluation of change in MS. Her head CT shows suspected acute infarct within the left
parieto-occipital lobe. Neuro is on the case and recommended Plavix load. She is noted to have AFIB with slow ventricular response and is on no rate-control agents. She is in no distress at the time of my assessment. She opens eyes to voice, but
otherwise does not follow commands. She told me her name, but did not answer other questions.
Past Medical History
Past Medical History: Arrhythmias, CHF, CVA, HTN, Hypercholesterolemia and NIDDM
Social History
Living: [facility]
Family History
Family History: Reviewed & Not Pertinent
Allergies / Home Medications
Allergy/AdvReac Type Severity Reaction Status Date / Time
adhesive tape Allergy Rash Verified 12/26/21 17:23
aspirin Allergy Anaphylaxis Verified 12/12/23 14:35
coconut Allergy Rash Verified 12/26/21 17:23
latex Allergy Rash Verified 12/26/21 17:23
pneumococcal vaccine Allergy Unknown Verified 12/25/21 09:40
vancomycin Allergy Unknown Verified 12/25/21 09:40
�Medication �Instructions �Recorded �Confirmed �Type
apixaban 5 mg tablet (Eliquis) 5 mg PO BID cerebral infarction 08/18/21 12/12/23 History
polyethylene glycol 3350 17 gram 17 g PO DAILY PRN constipation 09/15/21 12/12/23 History
oral powder packet
sertraline 50 mg tablet 50 mg PO DAILY Depression 09/15/21 12/12/23 History
sorbitol 70 % solution 30 ml PO DAILY PRN constipation 09/15/21 12/12/23 History
polyvinyl alcohol-povidone (PF) 1 drops BOTH EYES QID Eye condition 12/25/21 12/12/23 History
1.4 %-0.6 % eye drops in a
dropperette (Refresh Classic (PF))
acetaminophen 325 mg tablet 650 mg PO Q6HPRN PRN mild pain, 01/23/22 12/12/23 History
temp>100.4
atorvastatin 20 mg tablet 40 mg PO QPM High cholesterol 01/23/22 12/12/23 History
bisacodyl 10 mg rectal suppository 10 mg MN DAILYPRN PRN if no bm 01/23/22 12/12/23 History
(OneLAX Bisacodyl) aftr mom
insulin aspart U-100 100 unit/mL 0 - 10 sliding scale dose SC AC 08/26/22 12/12/23 History
(3 mL) subcutaneous pen (Novolog Diabetes
FlexPen U-100 Insulin aspart)
sodium bicarbonate 650 mg tablet 650 mg PO BID gastro-esophageal 08/26/22 12/12/23 History
reflux disease
docusate sodium 100 mg capsule 100 mg PO BID Constipation 12/12/23 12/12/23 History
insulin aspart U-100 100 unit/mL 4 units SC AC Diabetes 12/12/23 12/12/23 History
(3 mL) subcutaneous pen (Novolog
FlexPen U-100 Insulin aspart)
insulin glargine 100 unit/mL (3 5 unit SC HS Diabetes 12/12/23 12/12/23 History
mL) subcutaneous pen (Lantus
Solostar U-100 Insulin)
isosorbide mononitrate 60 mg 60 mg PO DAILY Heart Condition 12/12/23 12/12/23 History
tablet,extended release 24 hr
lisinopril 20 mg tablet 20 mg PO DAILY Blood Pressure 12/12/23 12/12/23 History
nystatin 100,000 unit/gram topical 1 applic topical BID RIGHT ARMPIT 12/12/23 12/12/23 History
powder (Nystop) FUNGAL INFECTION
sennosides 8.6 mg-docusate sodium 2 tab-cap PO HS Constipation 12/12/23 12/12/23 History
50 mg tablet (Senna-S)
torsemide 40 mg tablet 40 mg PO DAILY Fluid 12/12/23 12/12/23 History
Retention/Swelling
Review of Systems
-
History Source: Other (chart)
All other systems: Negative unless noted
Neurological: Other (change in MS)
Physical Exam
Vital Signs
Pulse Resp BP Pulse Ox
48 10 146/79 98
12/12/23 14:30 12/12/23 14:30 12/12/23 14:15 12/12/23 14:15
Lab Results
12/12/23 10:54
12/12/23 10:54
Physical Exam
General: No Apparent Distress
HEENT: Normocephalic and Anicteric
Respiratory: Clear and Non Labored Respirations
Cardiac: Irregular Rhythm
Skin: Warm and Dry
Neuro: Other (opens eyes to voice, says name- otherwise not talking or following commands for me)
Psych: Calm
Impression / Plan
-
Stroke:
-management per neuro
-Plavix initiated
-Eliquis held in acute phase
-MRI pending
AFIB, persistent
-not on rate control meds and HR on slow end
-follow telemetry
-Eliquis held as above
HFpEF: chronic, stable
-on torsemide as OP
-appears euvolemic
-follow volume
HTN:
-on medical therapy
-BP goal per neuro in setting of stroke
Data Reviewed
-
EKG: Tracing Personally Visualized and interpreted (AFIB 47 BPM )
Radiology: Report Reviewed by me (CXR 12/12/23: Haziness of left hemidiaphragm, which may be related to left lower lobe subsegmental atelectasis, aspiration, or pneumonia. 2. Otherwise clear lungs.)
Medical Tests (Nuc Med, Echo etc): Report Reviewed by me (echo 2021 LV ejection fraction is 60-65%, by visual assessment. No regional wall motion Enlarged right ventricular size with Normal right ventricular systolic function. Moderately dilated
right atrium. Mild mitral stenosis; peak/mean gradients 10/5 mmHg. Mild mitral regurgitation. )
Labs: Labs Reviewed by me
[2023-12-12 16:25] LABS: Procalcitonin 0.06 ng/ml (0.0-0.25)
--- NOTE | 2023-12-12 16:31 | EEG.RPT ---
Electroencephalogram Report
Recording
Date of EE12/12/23
Type of EEG: Routine
Length of EEG recordin minutes
Done with Video Recording: Yes
Patient Status: Emergency Room
Recording Conditions: Awake and Drowsy
Hyperventilation Performed: No
Photic Stimulation Performed: Yes
Report
LESS THAN 1 HOUR EEG REPORT
LESS THAN 1 HOUR EEG INTERPRETATION:
Mildly abnormal EEG for age in wakefulness through sleep due to mild diffuse bihemispheric slowing
CLINICAL CORRELATION:
This study was suggestive of mild diffuse cortical dysfunction without focal abnormality. No seizures were recorded.
Clinical correlation is advised.
METHODS:
A 21 channel digitized electroencephalogram (EEG) was performed at the bedside. The 10/20 international system of electrode placement was used with ECG and lateral/vertical eye movements recorded. The [employer] system was utilized.
QUALITY OF STUDY:
Fair due to sweat and muscle artifact
ELECTROENCEPHALOGRAPHER IMPRESSION(S):
Background
Amplitude: Unremarkable
Anterior-Posterior Organization: Fair, good at times
Maximum: Theta
Asymmetry: None
Sleep
Drowsiness present
Photic Stimulation
Failed to activate the record
Abnormal findings: intermittent triphasic waves noted
ECG
Irregularly irregular
[2023-12-12] MEDS: NOVOLOG FLEXPEN-LOW RESISTANCE SC (17:57)
[2023-12-12 18:05] LABS: Glucose - Point of Care 135 mg/dl (70-99)
[2023-12-12] MEDS: REFRESH EYE DROPS (PF) BOTH EYES (18:15)
[2023-12-12] MEDS: ZOSYN 50 IV (18:16)
--- NOTE | 2023-12-12 19:03 | PTCARENOTE ---
Received patient into room 3344. She is mostly unresponsive, moving R arm towards NGT and only opening eyes when moving patient from stretcher to bed. NIH and neuro check s documented. On monitor, she is in A-fib. Per the ER, her HR can go into the
30s and they had pacerpads on her. BP elevated on arrival but per Neuro to allow permissive hypertension. Lungs very diminished at the bases. She is on RA, 96%. She has a round obese abdomen. Incontinent of bladder, pericare performed. She has MASD
under breasts, abdominal folds and in groin. She has a silver dollar sized bruise to her R posterior upper arm. Bed alarm on. Assessment, care and VS as charted.
[2023-12-12] MEDS: LIPITOR 40 MG PO (20:16)
[2023-12-12] MEDS: REFRESH EYE DROPS (PF) 1 DROPS BOTH EYES (20:16)
[2023-12-13] VITALS (13 sets, daily range): BP systolic 114–180; BP diastolic 74–131; BMI 29.6
[2023-12-13 00:50] LABS: Glucose - Point of Care 159 mg/dl (70-99)
[2023-12-13] MEDS: ZOSYN 50 IV ×4 (00:53→17:00)
[2023-12-13] MEDS: NOVOLOG FLEXPEN-LOW RESISTANCE SC (00:53)
[2023-12-13] MEDS: FLUSH (NSS) 4 FLUSH IV (00:53)
--- NOTE | 2023-12-13 04:27 | PTCARENOTE ---
found pt pulling at ng tube- - mitt order received. pt waking up and moving extremities- able to tell me her name and age repeated her age over and over for several minutes and could not speak in full sentences- does not make eye contact or track.
moves extremities but very weak. mild rt facial droop - still with slurring and aphasia
[2023-12-13 06:10] LABS: Hematocrit 38.8 % (37.0-47.0); Hemoglobin 12.8 g/dL (12.0-16.0); Mean Corpuscular Hgb 28.6 pg (27.0-31.0); Mean Corpuscular Volume 86.6 fL (81.0-99.0); Mean Platelet Volume 11.8 fL (7.4-10.4); Platelet Count 211 10^3/uL (130-400); Red Blood Cell Count 4.48 10^6/uL (4.20-5.40); White Blood Cell Count 9.6 10^3/uL (4.8-10.8)
[2023-12-13 06:27] LABS: Blood Urea Nitrogen 64 mg/dl (7-17); Calcium 9.6 mg/dl (8.4-10.2); Carbon Dioxide 23 mmol/L (22-30); Chloride 108 mmol/L (98-107); Estimated Creatinine Clearance 26 ml/min; Glucose 186 mg/dl (70-99); Sodium 141 mmol/L (135-145); eGFR 28.23
[2023-12-13] MEDS: NOVOLOG FLEXPEN-LOW RESISTANCE 1 UNITS SC ×3 (07:03→18:44)
--- NOTE | 2023-12-13 07:18 | W.PN.NEURO.1 ---
Today's Communication / Plan
-
-Continue clopidogrel via NG tube
-Goal normotension
-Minimize sedating medications
-Hold Eliquis, plan to restart Eliquis on 12/19 and stop clopidogrel at that time
-Monitor on cardiac telemetry
-Check carotid ultrasound and transthoracic echocardiogram
-Speech and physical therapies
Will follow
Neuro Assessment/Plan
Assessment
68-year-old woman with a past no history of previous ischemic stroke presented to hospital with acute onset mental status change and aphasia
MRI brain demonstrates left-sided parietal and occipital ischemic stroke with mild amount of petechial hemorrhage, other areas of ischemic stroke in the left subcortical area of the basal ganglia
Suspected stroke etiology most likely atheroembolic, cardioembolic less likely but still possible
Severe neurologic deficits noted on examination, will need to reassess and follow her neurologic status clinically
Subjective/Objective
Subjective Data
Date of Service: December 13, 2023
No acute events, had NG tube placed, patient largely non-verbal
Objective Data
Vital Signs
Temp Pulse Resp BP Pulse Ox
97.5 F 90 19 158/82 97
12/13/23 03:54 12/13/23 06:00 12/13/23 06:00 12/13/23 06:00 12/13/23 06:00
Lab Results
12/13/23 05:40
12/13/23 05:40
Sodium 141 mmol/L (135-145) 12/13/23 05:40
Potassium 4.0 mmol/L (3.5-5.1) 12/13/23 05:40
BUN 64 mg/dl (7-17) H 12/13/23 05:40
Glucose 186 mg/dl (70-99) H 12/13/23 05:40
Calcium 9.6 mg/dl (8.4-10.2) 12/13/23 05:40
LDL Cholesterol, Calc 125 mg/dl 12/12/23 10:54
Vitamin B12 671 pg/ml (620-221) 12/12/23 10:54
Patient Allergies
adhesive tape Allergy (Verified 12/26/21 17:23)
Rash
aspirin Allergy (Verified 12/12/23 14:35)
Anaphylaxis
coconut Allergy (Verified 12/26/21 17:23)
Rash
latex Allergy (Verified 12/26/21 17:23)
Rash
pneumococcal vaccine Allergy (Verified 12/25/21 09:40)
Unknown
vancomycin Allergy (Verified 12/25/21 09:40)
Unknown
Review of Systems
-
Unable to obtain full review of systems at this time due to: Lethargy and Aphasia
Physical Exam
-
General: Appears Chronically Ill
Eyes: No Ptosis
HEENT: Normocephalic and Other (NG tube in palce)
Cardiac: Regular Rhythm and No Murmur
GI: Soft and Non-tender
Skin: Unremarkable
Psych: Confused; Negative Agitated or Intact Judgement/Insight
Extended Neurological Exam
Attention Span & Concentration: Other (Lethargic, eyes open to pain, groans and makes a few words, [id number])
Memory: Unable to Assess
Tremor: Hand Tremor Absent
Involuntary Movement: None
Speech: Expressive Aphasia, Receptive Aphasia and Dysarthric
Cranial Nerve II: Left Eye: Unreactive and Other (No blinking to threat in any area of vision bilaterally)
Cranial Nerve II: Right Eye: Unreactive and Other (No blinking to threat in any area of vision bilaterally)
Cranial Nerves III, IV, : Extraocular Movement: Extraocular Movement Full in all Directions and Other (Resting gaze midline, VOR intact)
Cranial Nerve VII: Facial Symmetry: Normal Facial Symmetry
Muscle Strength, Overall: Other (Right arm localizes to pain 4/5, left arm 4/5 withdrawal no localization to pain, legs withdraw 3/5 in symmetric manner)
Pronator Drift: Drift in Left Upper Extremity
Touch Sensation: Withdrawal to Pain
Data Reviewed
-
CT Head: Report Reviewed and Image Reviewed
MRI Head: Report Reviewed and Image Reviewed
MRA Head: Report Reviewed and Image Reviewed
Carotid Ultrasound: Pending
EEG: Report Reviewed
[2023-12-13] MEDS: PLAVIX 75 MG TUBE (08:52)
[2023-12-13] MEDS: REFRESH EYE DROPS (PF) 1 DROPS BOTH EYES ×4 (08:52→21:27)
[2023-12-13 12:24] LABS: Glucose - Point of Care 158 mg/dl (70-99)
[2023-12-13 12:49] LABS: Glycohemoglobin (HgbA1c) 8.1 % (4.0-5.6)
--- NOTE | 2023-12-13 13:03 | W.PN.HOSP.TC ---
Today's Communication/Plan
-
Monitor vital signs and see plan
Continue with Plavix through NG
Eliquis on hold
speech eval
cw abx
Monitor renal function
Will need more information on if patient has any family, number listed in the chart is disconnected. underwriting manager aware
Restart lisinopril through NGT
Hydralazine as needed
Assessment / Plan
Assessment / Plan
General: Well Developed, Well Nourished
HEENT: NormoCephalic, Moist mucous membranes and Atraumatic
Respiratory: Clear
Cardiac: Irregular Rhythm
GI: Soft, Non Tender
Rectal: Deferred by Provider
Musculoskeletal: No Edema
Neuro:AAOx1, spontaneously move upper extremity at times
Psych: Calm
encephalopathy likely from Acute CVA
#hxt of CVA
-Head CT with impression of Suspected acute infarct within the left parieto-occipital lobe, new compared to prior CT dated 09/15/2021. Atrophy and small vessel ischemic change, stable compared to prior head CT.
-Stroke protocol
-plavix in ER,patient allergic to asa; per neurology Hold Eliquis, plan to restart Eliquis on 12/19 and stop clopidogrel at that time
-A1c 8.1, lipid profile
-PT/OT consult
-MRI demonstrates left-sided parietal and occipital ischemic stroke with mild amount of petechial hemorrhage, other areas of ischemic stroke in the left subcortical area of the basal ganglia
-Ultrasound of carotid
-Goal now normotension
-Neurology following
Speech evaluation
# A-fib with slow ventricular response
-EKG with impression of A-fib with slow ventricular response
-Eliquis hold, restart when okay with neurology
-Cardiology signed off
# Possible aspiration pneumonia
-Chest x-ray with impression of Haziness of left hemidiaphragm, which may be related to left lower lobe subsegmental atelectasis, aspiration, or pneumonia
-IV Zosyn
-Blood culture sent from ER
-Patient oxygenating very well on room air
-Speech consulted
# Chronic kidney disease 3b
-cr 1.9 today
-ctm
#History of RLE DVT (February 2021)
#Chronic heart failure preserved EF -stable.
-Not in acute exacerbation
-Torsemide held
#Essential hypertension
-Isosorbide on hold as cannot be given through tube
Restart lisinopril
Hydralazine as needed
#Hyperlipidemia -on atorvastatin.
#DM2 without hyperglycemia
-Sliding scale
-Hold Lantus
#Depression
-Hold sertraline until patient fully awake
#Blindness
#Chronic Ambulatory Dysfunction
#Chronic Lymphedema and Venous Stasis bilateral lower extremities
#DNR per [facility]
Would need someone from family to make decisions on her behalf. Phone number listed in the chart is disconnected.
I spent a total of 54 minutes with the patient or on the floor. More than 50% of this time involved counseling and coordination of care.
Anticipated Discharge: > 48 hours
Subjective/Interval History
-
Date of Service: December 13, 2023
not responding to commands
Objective Data
-
Labs:
Laboratory Results
12/13/23
05:40
WBC 9.6
Hgb 12.8
Hct 38.8
Plt Count 211
Sodium 141
Potassium 4.0
Chloride 108 H
Carbon Dioxide 23
BUN 64 H
Creatinine 1.9 H
Glucose 186 H
Calcium 9.6
Vital Signs:
Vital Signs
Temp Pulse Resp BP Pulse Ox
98.5 F 83 16 162/92 98
12/13/23 11:32 12/13/23 12:00 12/13/23 12:00 12/13/23 12:00 12/13/23 12:00
I&O
12/12/23 12/13/23 12/14/23
06:59 06:59 06:59
Intake Total 200 / 200
Balance 200 / 200
[2023-12-13] MEDS: NSS 1000 IV (13:55)
[2023-12-13] MEDS: ZESTRIL 20 MG TUBE (13:55)
--- NOTE | 2023-12-13 15:01 | PTCARENOTE ---
Addendum entered by Lydia Avalos RN 12/13/23 15:02:
Also confirmed current Advance Directive we have is on file here and there is no current phone number for daughter.
Original Note:
[facility] has no documentation supporting pneumovax administration.
[2023-12-13] MEDS: APRESOLINE 5 MG IV (16:51)
[2023-12-13] MEDS: SORBITOL 70% 30 ML TUBE (16:52)
[2023-12-13] MEDS: LIPITOR 40 MG PO (16:52)
--- NOTE | 2023-12-13 17:02 | PTCARENOTE ---
Zestril given via NGT, BP still elevated currently 180/114 PRN IV hydralazine given- will monitor effects.
[2023-12-13 18:53] LABS: Glucose - Point of Care 177 mg/dl (70-99)
--- NOTE | 2023-12-13 19:22 | PTCARENOTE ---
More responsive this afternoonsays a few inappropriate words, some she repeats what I say 'December' she said yes/ no not convinced it was appropriate. Can move extremities slightly on own- mitts in place. NGT intact patent/ flushed. IVF initiated
today. Incontinent urine, no stool today- PRN Sorbital given. SCDs intact.
--- NOTE | 2023-12-13 22:44 | PTCARENOTE ---
Pt resting comfortably in bed; Difficult to perform NIHSS, follows some commands; Severe aphasia; Pt became restless and was grabbing at tubes; Mitts placed on patient. Notified by nurse that pt removed mitts and self removed NG tube (only used
for meds) - Provider made aware. Pt remains pleasant but restless and continues to call out and yell. A-Fib on monitor, Pt became tachy with rate ~ 180's then sustained rate at 140-150's. Etienne HERNANDEZ notified - Cardizem drip ordered and started
@ 10ml/hr. Will continue to monitor and assess.
[2023-12-14] VITALS (16 sets, daily range): BP systolic 121–180; BP diastolic 74–122; BMI 30.2
[2023-12-14] MEDS: ZOSYN 50 IV ×4 (00:07→17:39)
[2023-12-14 00:28] LABS: Glucose - Point of Care 182 mg/dl (70-99)
[2023-12-14] MEDS: HALDOL 1 MG IV ×2 (00:31→23:18)
[2023-12-14] MEDS: NOVOLOG FLEXPEN-LOW RESISTANCE 1 UNITS SC ×3 (01:00→17:48)
[2023-12-14] MEDS: NOVOLOG FLEXPEN-LOW RESISTANCE 2 UNITS SC (05:33)
[2023-12-14] MEDS: NSS 1000 IV ×2 (05:34→23:44)
[2023-12-14 05:47] LABS: Glucose - Point of Care 220 mg/dl (70-99)
[2023-12-14 06:14] LABS: Hematocrit 30.3 % (37.0-47.0); Hemoglobin 10.2 g/dL (12.0-16.0); Mean Corp Hgb Conc. 33.7 g/dL (33.0-37.0); Mean Corpuscular Hgb 28.8 pg (27.0-31.0); Mean Corpuscular Volume 85.6 fL (81.0-99.0); Mean Platelet Volume 11.5 fL (7.4-10.4); Platelet Count 160 10^3/uL (130-400); Red Blood Cell Count 3.54 10^6/uL (4.20-5.40); Red Cell Dist. Width 12.9 % (11.5-14.5); White Blood Cell Count 7.3 10^3/uL (4.8-10.8)
[2023-12-14 06:49] LABS: Hematocrit 41.9 % (37.0-47.0); Hemoglobin 14.1 g/dL (12.0-16.0); Mean Corp Hgb Conc. 33.7 g/dL (33.0-37.0); Mean Corpuscular Hgb 28.8 pg (27.0-31.0); Mean Corpuscular Volume 85.7 fL (81.0-99.0); Mean Platelet Volume 11.7 fL (7.4-10.4); Platelet Count 215 10^3/uL (130-400); Red Blood Cell Count 4.89 10^6/uL (4.20-5.40); Red Cell Dist. Width 12.9 % (11.5-14.5); White Blood Cell Count 9.1 10^3/uL (4.8-10.8)
[2023-12-14 07:09] LABS: Blood Urea Nitrogen 55 mg/dl (7-17); Calcium 9.9 mg/dl (8.4-10.2); Carbon Dioxide 20 mmol/L (22-30); Chloride 115 mmol/L (98-107); Estimated Creatinine Clearance 26 ml/min; Glucose 205 mg/dl (70-99); Sodium 144 mmol/L (135-145); eGFR 28.23
--- NOTE | 2023-12-14 07:46 | W.PN.NEURO.1 ---
Today's Communication / Plan
-
-Continue clopidogrel via NG tube
-Goal normotension
-Minimize sedating medications
-Hold Eliquis, plan to restart Eliquis on 12/19 and stop clopidogrel at that time
-Monitor on cardiac telemetry
-Check carotid ultrasound and transthoracic echocardiogram
-Speech and physical therapies
Will follow
Neuro Assessment/Plan
Assessment
68-year-old woman with a past no history of previous ischemic stroke presented to hospital with acute onset mental status change and aphasia
MRI brain demonstrates left-sided parietal and occipital ischemic stroke with mild amount of petechial hemorrhage, other areas of ischemic stroke in the left subcortical area of the basal ganglia
Suspected stroke etiology most likely atheroembolic, cardioembolic less likely but still possible
Severe neurologic deficits noted on examination, will need to reassess and follow her neurologic status clinically
Subjective/Objective
Subjective Data
Date of Service: December 14, 2023
No acute events, patient knows she is in hospital, mildly distressed
Objective Data
Vital Signs
Temp Pulse Resp BP Pulse Ox
98.3 F 80 15 148/87 95
12/14/23 03:02 12/14/23 02:14 12/14/23 02:14 12/14/23 02:14 12/14/23 03:56
Lab Results
12/14/23 06:41
12/14/23 06:41
Sodium 144 mmol/L (135-145) 12/14/23 06:41
Potassium 4.0 mmol/L (3.5-5.1) 12/14/23 06:41
BUN 55 mg/dl (7-17) H 12/14/23 06:41
Glucose 205 mg/dl (70-99) H 12/14/23 06:41
Calcium 9.9 mg/dl (8.4-10.2) 12/14/23 06:41
LDL Cholesterol, Calc 125 mg/dl 12/12/23 10:54
Vitamin B12 671 pg/ml (664-351) 12/12/23 10:54
Patient Allergies
adhesive tape Allergy (Verified 12/26/21 17:23)
Rash
aspirin Allergy (Verified 12/12/23 14:35)
Anaphylaxis
coconut Allergy (Verified 12/26/21 17:23)
Rash
latex Allergy (Verified 12/26/21 17:23)
Rash
pneumococcal vaccine Allergy (Verified 12/25/21 09:40)
Unknown
vancomycin Allergy (Verified 12/25/21 09:40)
Unknown
Review of Systems
-
Unable to obtain full review of systems at this time due to: Other (Confusion)
Physical Exam
-
General: Comfortable and Appears Chronically Ill
Eyes: No Ptosis
HEENT: Atraumatic
Respiratory: No Dyspnea
Cardiac: Regular Rhythm
GI: Soft and Non-tender
Skin: Warm and Dry; Negative Rash
Extremities: No Edema
Psych: Confused; Negative Intact Judgement/Insight
Extended Neurological Exam
Attention Span & Concentration: Awake, Alert, Unable to Perform 2 Step Request and Other (Confused, significant cognitive impairment, knows in the hospital and her name, obeys simple commands)
Memory: Reduced
Tremor: Hand Tremor Absent
Involuntary Movement: None
Speech: Expressive Aphasia and Dysarthric
Cranial Nerve II: Left Eye: Unreactive and No Vision
Cranial Nerve II: Right Eye: Unreactive and No Vision
Cranial Nerves III, IV, : Extraocular Movement: Extraocular Movement Full in all Directions
Muscle Strength, Overall: Other (4/5 throughout shoulder and hip flexion)
Pronator Drift: No Drift in Upper Extremities
[2023-12-14] MEDS: ZOLOFT 50 MG TUBE (08:05)
[2023-12-14] MEDS: REFRESH EYE DROPS (PF) 1 DROPS BOTH EYES ×4 (08:05→21:04)
[2023-12-14] MEDS: TYLENOL 650 MG PO (08:05)
[2023-12-14] MEDS: ZESTRIL 20 MG TUBE (08:05)
[2023-12-14] MEDS: PLAVIX 75 MG TUBE (08:05)
--- NOTE | 2023-12-14 09:28 | PTOTSP ---
SPEECH THERAPY SPEECH/LANGUAGE/COGNITIVE COMMUNICATION AND SWALLOWING EVALUATION:
Clinical signs of oropharyngeal dysphagia, likely [id number] related to acute CVA. Patient is at high risk for aspiration and related complications given reduced safety awareness, impulsivity, confusion, along with CXR concerning for
aspiration/pneumonia. Patient exhibiting signs of aspiration at bedside, and reporting globus sensation with puree textures. Patient appears unsafe for oral diet at this time. Recommend strict NPO. Consider short-term alternate means for
nutrition/medication/hydration if consistent with patient's goals of care. Patient will likely benefit from instrumental assessment of swallowing via VFSS; However recommend holding on instrumental assessment of swallowing until patient more
consistent with acceptance of p.o. trials. Speech therapy to follow, determine readiness for additional p.o. trials and/or VFSS if indicated, provide continued assessment of swallow function, and provide continued diagnostic swallow therapy as
appropriate.
Patient exhibits mild speech impairment, mild-moderate receptive language impairments, moderate-severe expressive language impairments, and moderate-severely cognitive communication impairments characterized by: Receptive aphasia, expressive
aphasia, Reduced intelligibility, apraxia, anomia, perseveration, tangential speech, reduced orientation, reduced attention, reduced safety awareness and judgement, reduced STM, impulsivity, reduced ability problem solving and executive functioning
skills. Patient would benefit from intensive speech therapy services at the acute care level and continued therapy upon discharge.
RECOMMEND:
1) strict NPO
2) Consider short-term alternate means for nutrition/medication/hydration if consistent with patient's goals of care
3) Speech therapy to follow, determine readiness for additional p.o. trials and/or VFSS if indicated, provide continued assessment of swallow function, and provide continued diagnostic swallow therapy as appropriate;
4) ST to follow for speech/language/cognitive communication therapy
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
[2023-12-14 12:27] LABS: Glucose - Point of Care 170 mg/dl (70-99)
--- NOTE | 2023-12-14 13:04 | W.PN.HOSP.TC ---
Addendum entered and electronically signed by Espinoza Keating MD 12/14/23 17:14:
Patient does have a niece with number listed below. I updated her. She likely will be coming tomorrow to visit.
[phone]
Original Note:
Today's Communication/Plan
-
Monitor vital signs
see plan
Administer another NG tube
Meds through tube
Speech to reevaluate tomorrow
Continue Plavix
Cardizem as needed
Assessment / Plan
Assessment / Plan
General: Well Developed, Well Nourished
HEENT: NormoCephalic, Moist mucous membranes and Atraumatic
Respiratory: Clear
Cardiac: Irregular Rhythm
GI: Soft, Non Tender
Rectal: Deferred by Provider
Musculoskeletal: No Edema
Neuro:AAOx1, spontaneously move upper extremity at times
Psych: Calm
encephalopathy likely from Acute CVA
#hxt of CVA
-Head CT with impression of Suspected acute infarct within the left parieto-occipital lobe, new compared to prior CT dated 09/15/2021. Atrophy and small vessel ischemic change, stable compared to prior head CT.
-Stroke protocol
-plavix in ER,patient allergic to asa; per neurology Hold Eliquis, plan to restart Eliquis on 12/19 and stop clopidogrel at that time
-A1c 8.1
-PT/OT consult
-MRI demonstrates left-sided parietal and occipital ischemic stroke with mild amount of petechial hemorrhage, other areas of ischemic stroke in the left subcortical area of the basal ganglia
-Ultrasound of carotid pending
-Goal now normotension
-Neurology following
Speech evaluation; NPO for now. Reassessment tomorrow. Meds through NG tube
overnight pulled out NGT; RN to put another tube today
# Persistent A-fib, overnight with RVR
Was started on Cardizem drip, now off
Will add Cardizem as needed
-EKG with impression of A-fib with slow ventricular response
-Eliquis hold, restart when okay with neurology
-Cardiology signed off
# Possible aspiration pneumonia
-Chest x-ray with impression of Haziness of left hemidiaphragm, which may be related to left lower lobe subsegmental atelectasis, aspiration, or pneumonia
-IV Zosyn
-Blood culture sent from ER
-Patient oxygenating very well on room air
-Speech consulted
Suspect Proteus UTI
Monitor
Already on antibiotic
# Chronic kidney disease 3b
-cr 1.9 today
-ctm
#History of RLE DVT (February 2021)
#Chronic heart failure preserved EF -stable.
-Not in acute exacerbation
-Torsemide held
#Essential hypertension
-Isosorbide on hold as cannot be given through tube
Restarted lisinopril
Hydralazine as needed
#Hyperlipidemia -on atorvastatin.
#DM2 without hyperglycemia
-Sliding scale
-Hold Lantus
#Depression
- sertraline
#Blindness
#Chronic Ambulatory Dysfunction
#Chronic Lymphedema and Venous Stasis bilateral lower extremities
#DNR per [facility]
Would need someone from family to make decisions on her behalf. Phone number listed in the chart is disconnected.
Patient does have POLST form from 2020 which lists as no artificial nutrition. CM will try to find out more information on this.
I spent a total of 54 minutes with the patient or on the floor. More than 50% of this time involved counseling and coordination of care.
Anticipated Discharge: > 48 hours
Subjective/Interval History
-
Date of Service: December 14, 2023
was agitated this morning
Objective Data
-
Labs:
Laboratory Results
12/14/23 12/14/23
05:48 06:41
WBC 7.3 9.1
Hgb 10.2 L D 14.1 D
Hct 30.3 L 41.9
Plt Count 160 D 215 D
Sodium Cancelled 144
Potassium Cancelled 4.0
Chloride Cancelled 115 H
Carbon Dioxide Cancelled 20 L
BUN Cancelled 55 H
Creatinine Cancelled 1.9 H
Glucose Cancelled 205 H
Calcium Cancelled 9.9
Vital Signs:
Vital Signs
Temp Pulse Resp BP Pulse Ox
97.7 F 61 14 170/97 94
12/14/23 07:35 12/14/23 12:00 12/14/23 12:00 12/14/23 12:00 12/14/23 08:00
I&O
12/13/23 12/14/23 12/15/23
06:59 06:59 06:59
Intake Total 760 / 760
Balance 760 / 760
--- NOTE | 2023-12-14 15:18 | PTCARENOTE ---
Estrada tube reinserted right nare- some difficulty by pt but is in and auscultated placement. Marking at 65.
[2023-12-14] MEDS: LIPITOR 40 MG PO (17:40)
[2023-12-14 18:02] LABS: Glucose - Point of Care 159 mg/dl (70-99)
[2023-12-14] MEDS: APRESOLINE 5 MG IV (21:39)
[2023-12-15] VITALS (14 sets, daily range): BP systolic 130–174; BP diastolic 64–149; BMI 30.1
[2023-12-15] MEDS: ZOSYN 50 IV ×5 (00:20→23:02)
[2023-12-15] MEDS: NOVOLOG FLEXPEN-LOW RESISTANCE 1 UNITS SC ×5 (00:21→17:59)
[2023-12-15 00:23] LABS: Glucose - Point of Care 155 mg/dl (70-99)
[2023-12-15] MEDS: APRESOLINE 5 MG IV ×2 (02:04→15:10)
--- NOTE | 2023-12-15 03:11 | PTCARENOTE ---
Pt having high BP's, PRN medication given (see MAR). Pt starting yelling out she needs water, mouth care provided. Pt NG tube in place. Pt becoming more agitated as night went on. Pt seeing people in the room that are not there, reorientation
attempted and worked at times, emotional support given. Pt starting to pull mitts off and yelling out, BP increasing. Night [employer] made aware, one time Haldol given. Reassessment, Pt settled down and talking appropriately with staff. Assessment care and
vitals as charted.
[2023-12-15 05:42] LABS: Hemoglobin 14.8 g/dL (12.0-16.0); Mean Corp Hgb Conc. 32.2 g/dL (33.0-37.0); Mean Corpuscular Hgb 28.4 pg (27.0-31.0); Mean Corpuscular Volume 88.1 fL (81.0-99.0); Mean Platelet Volume 11.6 fL (7.4-10.4); Platelet Count 216 10^3/uL (130-400); Red Blood Cell Count 5.22 10^6/uL (4.20-5.40); Red Cell Dist. Width 13.2 % (11.5-14.5); White Blood Cell Count 9.2 10^3/uL (4.8-10.8)
[2023-12-15 05:54] LABS: Blood Urea Nitrogen 41 mg/dl (7-17); Calcium 10.1 mg/dl (8.4-10.2); Carbon Dioxide 20 mmol/L (22-30); Chloride 114 mmol/L (98-107); Estimated Creatinine Clearance 31 ml/min; Glucose 144 mg/dl (70-99); Potassium 3.9 mmol/L (3.5-5.1); Sodium 145 mmol/L (135-145)
[2023-12-15 06:16] LABS: Glucose - Point of Care 160 mg/dl (70-99)
[2023-12-15] MEDS: CARDIZEM 5 MG IV ×2 (10:05→23:01)
[2023-12-15] MEDS: REFRESH EYE DROPS (PF) 1 DROPS BOTH EYES ×3 (10:11→21:53)
[2023-12-15] MEDS: ZOSYN IV (10:30)
--- NOTE | 2023-12-15 10:36 | W.PN.HOSP.TC ---
Today's Communication/Plan
-
Speech eval and if he passes DC NG tube and continue with oral diet, and medications.
PT OT eval.
Echocardiogram pending.
Assessment / Plan
Assessment / Plan
Acute encephalopathy from Acute CVA
#hxt of CVA
-Head CT with impression of Suspected acute infarct within the left parieto-occipital lobe, new compared to prior CT dated 09/15/2021. Atrophy and small vessel ischemic change, stable compared to prior head CT.
-Stroke protocol
-plavix in ER,patient allergic to asa; per neurology Hold Eliquis, plan to restart Eliquis on 12/19 and stop clopidogrel at that time
-A1c 8.1
-PT/OT consulted
-MRI demonstrates left-sided parietal and occipital ischemic stroke with mild amount of petechial hemorrhage, other areas of ischemic stroke in the left subcortical area of the basal ganglia
-Ultrasound of carotid pending
-Goal now normotension
-Neurology following
Speech evaluation; Meds through NG tube
- Neuro following
- ECHO pending
# Persistent A-fib, overnight with RVR
Was started on Cardizem drip, now off
cw Cardizem as needed
-EKG with impression of A-fib with slow ventricular response
-Eliquis hold, restart when okay with neurology
-Cardiology signed off
# Possible aspiration pneumonia
-Chest x-ray with impression of Haziness of left hemidiaphragm, which may be related to left lower lobe subsegmental atelectasis, aspiration, or pneumonia
-IV Zosyn
-Blood culture sent from ER
-Patient oxygenating very well on room air
-Speech consulted
Suspect Proteus UTI
Monitor
Already on antibiotic
# Chronic kidney disease 3b
-cr 1.6 today
-ctm
#History of RLE DVT (February 2021)
#Chronic heart failure preserved EF -stable.
-Not in acute exacerbation
-Torsemide held
#Essential hypertension
-Isosorbide on hold as cannot be given through tube
Restarted lisinopril
Hydralazine as needed
#Hyperlipidemia -on atorvastatin.
#DM2 without hyperglycemia
-Sliding scale
-Hold Lantus
#Depression
- sertraline
#Blindness
#Chronic Ambulatory Dysfunction
#Chronic Lymphedema and Venous Stasis bilateral lower extremities
#DNR per [facility]
Mellissa ,her Niece is person to notify ;number in chart
DW RN
Anticipated Discharge: > 48 hours
Subjective/Interval History
-
Date of Service: December 15, 2023
Started to wake up today.
She is alert now, oriented to place and person.
Follow commands.
Seems to have vision issue. She said she had vision issues in past left weaker than right eye but now can see faces vaguely in both eyes.
Objective Data
-
Labs:
Laboratory Results
12/15/23
04:38
WBC 9.2
Hgb 14.8
Hct 46.0
Plt Count 216
Sodium 145
Potassium 3.9
Chloride 114 H
Carbon Dioxide 20 L
BUN 41 H
Creatinine 1.6 H
Glucose 144 H
Calcium 10.1
Vital Signs:
Vital Signs
Temp Pulse Resp BP Pulse Ox
98.3 F 80 14 130/64 97
12/15/23 07:30 12/15/23 06:00 12/15/23 06:00 12/15/23 06:00 12/15/23 06:00
I&O
12/14/23 12/15/23 12/16/23
06:59 06:59 06:59
Intake Total 760 / 760 700 / 700
Balance 760 / /
Review of Systems
-
Respiratory: Denies Trouble Breathing
Cardiac: Denies Chest Pain
Abdomen/GI: Denies Abdominal Pain, Nausea or Vomiting
Neuro: Denies Dizzy or Headache
Physical Exam
-
General: No Apparent Distress
HEENT: Moist Mucous Membranes
Respiratory: Clear to Auscultation (ANTERIORLY)
Cardiac: S1/S2 and Irregular Rhythm; Negative Tachycardic
GI: Soft and Nontender
Neuro: Awake, Alert and Oriented; Negative No Motor Deficits (UE BL 5/5;LE BL 4+/5 )
Psych: Calm
Data Reviewed
-
Labs: Labs Reviewed by me
[2023-12-15] MEDS: ZESTRIL 20 MG TUBE (10:55)
[2023-12-15] MEDS: PLAVIX 75 MG TUBE (10:55)
[2023-12-15] MEDS: ZOLOFT 50 MG TUBE (10:55)
--- NOTE | 2023-12-15 11:04 | PTCARENOTE ---
Bilateral wrist restraints and a side rails discontinued at 1104.
--- NOTE | 2023-12-15 11:33 | CM ---
Patient from [facility] with Hx blindness with Dx CVA, Rapid A fib, possible aspiration PNA, UTI. Room air. NPO/IVF/NGT. Receiving IV Zosyn. PT & OT on hold for nurse reported minimally responsive.
Spoke with [facility]; the patient resides there in LTC and is on an MA bed hold. [facility].
Spoke with [phone]: the patient is confused at baseline, the patient sees shadows. She is dependent in her mobility, and requires max assist of 2. The patient refuses to get out of bed to the w/c and has been bedbound for 2
years.
Phone call to lalo Malloy (ph [phone]); tried phone # a few times- # is out of service.
Phone call to [facility] Santos; left message requesting callback with patient's contacts.
Plan contact patient's family when contact with working phone # is able to be obtained.
Plan return to [facility] when medically ready.
--- NOTE | 2023-12-15 11:55 | PTOTSP ---
ST Dysphagia Follow up/Tx session
Dysphagia; i/s/o confusion, possible interference of NG
Pt received awake/alert oriented to self/ and name of hospital. Reoriented to time/date and situation. Answering simple yes/no questions and follows 1 step commands with cues and repetition as needed.
HOB raised upright for PO trials of puree, minced/moist solids, soft/bite-size solids and thin liquids. Demo adequate oral access/containment, moderately prolonged mastication and multiple swallows could be due to large bore NG. Puree judged to be
WFL at this time. Thin liquids by cup and single straw sip swallow appears prompt. Serial sips from straw with immediate cough.
Recommend
1. Puree (L4) and Thin liquids
2. Aspiration precautions and feeding assist 2' current confusion and visual impairment
3. Small bites and small/single sips from straw OK
4. Whole/single v. crushed meds into apple sauce
5. Advise removal of large bore NG
6. TEXTILE CONVERTER following
[2023-12-15 14:12] LABS: Glucose - Point of Care 174 mg/dl (70-99)
--- NOTE | 2023-12-15 14:27 | W.PN.NEURO.1 ---
Today's Communication / Plan
-
-Hold Eliquis, plan to restart Eliquis on 12/20/2023 and stop clopidogrel at that time
Neuro Assessment/Plan
Assessment
68-year-old woman with a past no history of previous ischemic stroke presented to hospital with acute onset mental status change and aphasia
MRI brain demonstrates left-sided parietal and occipital ischemic stroke with mild amount of petechial hemorrhage, other areas of ischemic stroke in the left subcortical area of the basal ganglia
Suspected stroke etiology most likely atheroembolic, cardioembolic less likely but still possible
Severe neurologic deficits noted on examination, will need to reassess and follow her neurologic status clinically
Plan
-Continue clopidogrel via NG tube
-Goal normotension
-Minimize sedating medications
-Hold Eliquis, plan to restart Eliquis on 12/20/2023 and stop clopidogrel at that time
-Monitor on cardiac telemetry
-Speech and physical therapies
Will follow as needed. Please contact us with additional questions or issues
Subjective/Objective
Subjective Data
Date of Service: December 15, 2023
Objective Data
Vital Signs
Temp Pulse Resp BP Pulse Ox
36.4 C 80 14 130/64 95
12/15/23 11:30 12/15/23 06:00 12/15/23 06:00 12/15/23 06:00 12/15/23 08:15
Lab Results
12/15/23 04:38
12/15/23 04:38
Sodium 145 mmol/L (135-145) 12/15/23 04:38
Potassium 3.9 mmol/L (3.5-5.1) 12/15/23 04:38
BUN 41 mg/dl (7-17) H 12/15/23 04:38
Glucose 144 mg/dl (70-99) H 12/15/23 04:38
Calcium 10.1 mg/dl (8.4-10.2) 12/15/23 04:38
LDL Cholesterol, Calc 125 mg/dl 12/12/23 10:54
Vitamin B12 671 pg/ml (239-931) 12/12/23 10:54
Patient Allergies
adhesive tape Allergy (Verified 12/26/21 17:23)
Rash
aspirin Allergy (Verified 12/12/23 14:35)
Anaphylaxis
coconut Allergy (Verified 12/26/21 17:23)
Rash
latex Allergy (Verified 12/26/21 17:23)
Rash
pneumococcal vaccine Allergy (Verified 12/25/21 09:40)
Unknown
vancomycin Allergy (Verified 12/25/21 09:40)
Unknown
[2023-12-15] MEDS: REFRESH EYE DROPS (PF) BOTH EYES (14:47)
--- NOTE | 2023-12-15 14:57 | PTCARENOTE ---
Patient awake and alert. Able to do swallow evaluation. Patient with expressive aphagia/confused conversations. Place on dysphagia 4 thin liquids. Requires assistance with eating. NG tube discontinued as per MD orders.
[2023-12-15] MEDS: LIPITOR 40 MG PO (17:57)
[2023-12-15 18:08] LABS: Glucose - Point of Care 194 mg/dl (70-99)
--- NOTE | 2023-12-15 18:45 | PTCARENOTE ---
Patient tolerating dysphagia diet with thin liquids. Patient needs to be feed. She is legally blind.
[2023-12-15 21:52] LABS: Glucose - Point of Care 235 mg/dl (70-99)
[2023-12-15] MEDS: NSS 1000 IV (22:25)
[2023-12-16] VITALS (22 sets, daily range): BP systolic 130–199; BP diastolic 75–170; PULSE 90; BMI 30.8
[2023-12-16] MEDS: ZOSYN 50 IV (05:11)
[2023-12-16 05:18] LABS: Hematocrit 33.9 % (37.0-47.0); Hemoglobin 11.6 g/dL (12.0-16.0); Mean Corp Hgb Conc. 34.2 g/dL (33.0-37.0); Mean Corpuscular Hgb 28.9 pg (27.0-31.0); Mean Corpuscular Volume 84.3 fL (81.0-99.0); Mean Platelet Volume 11.7 fL (7.4-10.4); Platelet Count 207 10^3/uL (130-400); Red Blood Cell Count 4.02 10^6/uL (4.20-5.40); Red Cell Dist. Width 13.1 % (11.5-14.5); White Blood Cell Count 8.7 10^3/uL (4.8-10.8)
[2023-12-16 05:35] LABS: Blood Urea Nitrogen 31 mg/dl (7-17); Carbon Dioxide 18 mmol/L (22-30); Chloride 116 mmol/L (98-107); Estimated Creatinine Clearance 30 ml/min; Glucose 162 mg/dl (70-99); Potassium 3.3 mmol/L (3.5-5.1); Sodium 140 mmol/L (135-145); eGFR 32.26
[2023-12-16 08:19] LABS: Glucose - Point of Care 172 mg/dl (70-99)
--- NOTE | 2023-12-16 09:22 | PN.CDI ---
CDI
- -
CDI:
Physician Documentation Request
Admit Date: 12/12/23 14:40
Dear Doctor Alex,
Please review the following and provide your response in the progress notes.
Clinical Indicators:
Pt admitted with acute infarct within the left parieto-occipital lobe/Acute encephalopathy /UTI/Aspiration PNA
Pt care note 12/12 @ 0427,' found pt pulling at ng tube- - mitt order received. pt waking up and moving extremities- able to tell me her name and age repeated her age over and over for several minutes and could not speak in full sentences- does not
make eye contact or track..'
Pt care note 12/12 @ 4694,'Difficult to perform NIHSS, follows some commands; Severe aphasia; Pt became restless and was grabbing at tubes; Mitts placed on patient. Notified by nurse that pt removed mitts and self removed NG tube (only used for
meds) - Provider made aware. Pt remains pleasant but restless and continues to call out and yell....'
Patient care note 12/14 @ 0311,' Pt becoming more agitated as night went on. Pt seeing people in the room that are not there, reorientation attempted and worked at times, emotional support given. Pt starting to pull mitts off and yelling out.. Haldol
given....'
Documented per H&P and Progress notes , ' encephalopathy likely from Acute CVA...'
Please specify the known or suspected type of the documented encephalopathy.
Metabolic/ Encephalopathy due to CVA
Toxic
Toxic metabolic
Other
Use of terms such as suspected, likely, concern for, or probable (associated with a specific diagnosis that is being evaluated, monitored, or treated as if it exists) are acceptable and can be coded in the inpatient setting, when documented at the
time of discharge.
Thank you,
Alexa Obregon RN
CDI Specialist
[facility]
Please use your independent medical judgment in providing your response.
[2023-12-16] MEDS: ZESTRIL 20 MG PO (09:31)
[2023-12-16] MEDS: NOVOLOG FLEXPEN-LOW RESISTANCE 1 UNITS SC ×2 (09:31→18:14)
[2023-12-16] MEDS: REFRESH EYE DROPS (PF) 1 DROPS BOTH EYES ×2 (09:32→20:08)
[2023-12-16] MEDS: PLAVIX 75 MG PO (09:32)
[2023-12-16] MEDS: ZOLOFT 50 MG PO (09:33)
--- NOTE | 2023-12-16 09:34 | W.PN.HOSP.TC ---
Today's Communication/Plan
-
Switch antibiotics to oral Augmentin.
Initiate Cardizem p.o.
Advance diet per speech
Transfer to telemetry.
DC planning.
Assessment / Plan
Assessment / Plan
Acute encephalopathy from Acute CVA
#hx of CVA
-Head CT with impression of Suspected acute infarct within the left parieto-occipital lobe, new compared to prior CT dated 09/15/2021. Atrophy and small vessel ischemic change, stable compared to prior head CT.
-Stroke protocol
-plavix in ER,patient allergic to asa; per neurology Hold Eliquis, plan to restart Eliquis on 12/19 and stop clopidogrel at that time
-A1c 8.1
-cw PT/OT
-MRI demonstrates left-sided parietal and occipital ischemic stroke with mild amount of petechial hemorrhage, other areas of ischemic stroke in the left subcortical area of the basal ganglia
-Ultrasound of carotid Velocity profiles consistent with less than 50% bilateral internal carotid artery stenosis.
-Goal now normotension
-Neurology following
- cw modified diet
- Neuro following
- ECHO normal EF and no changes compared to 01/2022
# A-fib - Improved rate
- Was started on Cardizem drip, now off
- Initiate Cardizem oral daily ;was not on rate control meds
- BP stable ; EF normal
- Eliquis hold, restart when okay with neurology
- Cardiology signed off
# Possible aspiration pneumonia
-Chest x-ray with impression of Haziness of left hemidiaphragm, which may be related to left lower lobe subsegmental atelectasis, aspiration, or pneumonia
-On IV Zosyn
-Blood culture neg
-Patient oxygenating very well on room air
- Switch to oral Augmentin
Suspect Proteus UTI
Monitor
Already on antibiotic
# Chronic kidney disease 3b
-cr 1.7 today
-ctm
#History of RLE DVT (February 2021)
#Chronic heart failure preserved EF -stable.
-Not in acute exacerbation
-Torsemide resumed
#Essential hypertension
- On ACEI which is resumed
#Hyperlipidemia -on atorvastatin.
#DM2 without hyperglycemia
-Sliding scale
-Hold Lantus
#Depression
- sertraline
#Blindness
#Chronic Ambulatory Dysfunction
#Chronic Lymphedema and Venous Stasis bilateral lower extremities
#DNR per [facility]
DW RN
Tx to tele
Anticipated Discharge: Within 24 hours
Subjective/Interval History
-
Date of Service: December 16, 2023
Patient much more alert and oriented today.
The patient states that she is blind in both eyes even before the stroke and the stroke has not affected her vision any worse. Denies any weakness in the limbs.
She can see forms of faces and not much more.
Due to her blindness she is pretty much bedbound. She gets help with transfers to the wheelchair if she needs to go somewhere.
She is hoping to back to facility in [facility] if possible.
Objective Data
-
Labs:
Laboratory Results
12/16/23
04:44
WBC 8.7
Hgb 11.6 L D
Hct 33.9 L
Plt Count 207
Sodium 140
Potassium 3.3 L
Chloride 116 H
Carbon Dioxide 18 L
BUN 31 H
Creatinine 1.7 H
Glucose 162 H
Calcium 9.0
Vital Signs:
Vital Signs
Temp Pulse Resp BP Pulse Ox
98.3 F 93 13 151/94 96
12/16/23 03:35 12/16/23 09:31 12/16/23 06:00 12/16/23 09:31 12/16/23 06:00
I&O
12/15/23 12/16/23 12/17/23
06:59 06:59 06:59
Intake Total 700 / 700 2785 / 2785
Balance 700 / 2785 / 278
Review of Systems
-
Respiratory: Denies Trouble Breathing
Cardiac: Denies Chest Pain
Abdomen/GI: Denies Abdominal Pain or Nausea
Neuro: Denies Dizzy or Headache
Physical Exam
-
General: No Apparent Distress
HEENT: Moist Mucous Membranes
Respiratory: Clear to Auscultation
Cardiac: S1/S2, Irregular Rhythm and Tachycardic
GI: Soft
Neuro: Awake, Alert, Oriented and No Motor Deficits
Psych: Calm
Data Reviewed
-
Labs: Labs Reviewed by me
[2023-12-16] MEDS: SODIUM BICARBONATE 650 MG PO ×2 (11:10→20:08)
[2023-12-16] MEDS: CARDIZEM CD 120 MG PO (11:10)
[2023-12-16] MEDS: AUGMENTIN 500 MG/125 MG 1 TABLET PO ×2 (11:11→20:08)
[2023-12-16] MEDS: REFRESH EYE DROPS (PF) BOTH EYES ×2 (11:34→16:34)
[2023-12-16] MEDS: NOVOLOG FLEXPEN-LOW RESISTANCE 2 UNITS SC (13:29)
[2023-12-16] MEDS: CARDIZEM 5 MG IV (13:30)
[2023-12-16 13:38] LABS: Glucose - Point of Care 222 mg/dl (70-99)
--- NOTE | 2023-12-16 14:00 | PTOTSP ---
Pt is baseline for transfers and ADLs. Shekhar/bedbound and Max A x 2 baseline. No skilled OT services warranted. Will sign off.
--- NOTE | 2023-12-16 14:59 | PTCARENOTE ---
Addendum entered by Bailey Corbett RN 12/16/23 16:03:
Pt continues with hypertension, Dr. Johnson notified, orders rec'd for stat dose Imdur.
Original Note:
PRN Hydralazine given for SBP of 183 at 13:30, continuing to monitor for response. Pt remains AOx2, forgetful at times, occ removing monitoring equipment. Safe environment maintained.
[2023-12-16] MEDS: KCL 40 MEQ PO (15:06)
[2023-12-16] MEDS: IMDUR (EXTENDED RELEASE) 60 MG PO (16:07)
[2023-12-16] MEDS: LIPITOR 40 MG PO (17:13)
--- NOTE | 2023-12-16 17:16 | CM ---
Patient from [facility] with Hx blindness with Dx Acute encephalopathy from Acute CVA, Rapid A fib, possible aspiration PNA, suspect UTI. Room air. Dysphagia diet. Receiving IV Zosyn. PT & OT Evals; no skilled PT/OT needed.
Notified by nurse that patient wants to go to another nursing facility in [place].
Met with patient who was conversant however confused. Patient talking about going out to her house a few months ago and referencing that it was the year 2020. Patient stating she wants to go to her cottage in [place] and says she can take care
of herself. Attempted to reorient her and informed her that the plan was for her to return to [facility] where she lived. Patient seemed aware she lived at [facility] and said most of the nurses are kind and helpful there.
Phone call to Mellissa, patient's daughter; left messages at 12:40pm and 5:22pm at home # requesting callback for d/c planning- no response. Cell phone not in service.
Plan return to [facility] when medically ready.
[2023-12-16 18:02] LABS: Glucose - Point of Care 192 mg/dl (70-99)
[2023-12-16] MEDS: SENOKOT-S 2 TABLET PO (20:08)
[2023-12-16] MEDS: COLACE 100 MG PO (20:08)
[2023-12-16 21:53] LABS: Glucose - Point of Care 213 mg/dl (70-99)
--- NOTE | 2023-12-16 23:15 | PTCARENOTE ---
Patient transferred to [facility]. Belongings sent with patient.
--- NOTE | 2023-12-16 23:59 | PTCARENOTE ---
Patient arrived to in bed with all belongings. AAOx2 (not to time). Patient legally blind, VSS. NIH 7. Patient oriented to the room, made comfortable. Call hernandez is within reach.
[2023-12-17 03:44] VITALS: BP 147/90
[2023-12-17 06:00] VITALS: BMI 31.0
[2023-12-17 07:15] VITALS: BP 143/91
[2023-12-17 07:20] LABS: Glucose - Point of Care 169 mg/dl (70-99)
[2023-12-17 08:10] LABS: Hematocrit 31.1 % (37.0-47.0); Hemoglobin 10.5 g/dL (12.0-16.0); Mean Corp Hgb Conc. 33.8 g/dL (33.0-37.0); Mean Corpuscular Hgb 28.8 pg (27.0-31.0); Mean Corpuscular Volume 85.4 fL (81.0-99.0); Mean Platelet Volume 12.1 fL (7.4-10.4); Platelet Count 168 10^3/uL (130-400); Red Blood Cell Count 3.64 10^6/uL (4.20-5.40); Red Cell Dist. Width 13.2 % (11.5-14.5); White Blood Cell Count 6.8 10^3/uL (4.8-10.8)
[2023-12-17] MEDS: ZOLOFT 50 MG PO (08:10)
[2023-12-17] MEDS: PLAVIX 75 MG PO (08:10)
[2023-12-17] MEDS: COLACE 100 MG PO (08:10)
[2023-12-17] MEDS: IMDUR (EXTENDED RELEASE) 60 MG PO (08:10)
[2023-12-17] MEDS: CARDIZEM CD 120 MG PO (08:10)
[2023-12-17] MEDS: REFRESH EYE DROPS (PF) 1 DROPS BOTH EYES ×2 (08:11→12:16)
[2023-12-17] MEDS: SODIUM BICARBONATE 650 MG PO (08:11)
[2023-12-17] MEDS: ZESTRIL 20 MG PO (08:11)
[2023-12-17] MEDS: NOVOLOG FLEXPEN-LOW RESISTANCE 1 UNITS SC (08:12)
[2023-12-17] MEDS: AUGMENTIN 500 MG/125 MG 1 TABLET PO (08:44)
[2023-12-17 08:47] LABS: Blood Urea Nitrogen 25 mg/dl (7-17); Calcium 8.9 mg/dl (8.4-10.2); Carbon Dioxide 21 mmol/L (22-30); Chloride 114 mmol/L (98-107); Estimated Creatinine Clearance 32 ml/min; Glucose 168 mg/dl (70-99); Potassium 3.8 mmol/L (3.5-5.1); Sodium 139 mmol/L (135-145)
[2023-12-17 11:05] VITALS: BP 166/90
[2023-12-17 11:57] LABS: Glucose - Point of Care 215 mg/dl (70-99)
--- NOTE | 2023-12-17 12:11 | PTOTSP ---
Speech Therapy
Patient demonstrating improved oral processing and tolerance with solid trials. No evidence for aspiration or pharyngeal stasis.
Recommend
1. Advance to regular solids and continue thin liquids
2. Meds as tolerated
3. Upright with all intake.
[2023-12-17] MEDS: NOVOLOG FLEXPEN-LOW RESISTANCE 2 UNITS SC ×2 (12:16→16:41)
[2023-12-17 13:16] LABS: Hematocrit 32.8 % (37.0-47.0); Hemoglobin 11.3 g/dL (12.0-16.0)
--- NOTE | 2023-12-17 13:42 | W.PN.HOSP.TC ---
Addendum entered and electronically signed by Jonathan Johnson MD 12/18/23 16:03:
Correction
No encephalopathy - it was more acute change in MS sec to acute CVA
Original Note:
Today's Communication/Plan
-
DC
Assessment / Plan
Assessment / Plan
Acute encephalopathy from Acute CVA
#hx of CVA
-Head CT with impression of Suspected acute infarct within the left parieto-occipital lobe, new compared to prior CT dated 09/15/2021. Atrophy and small vessel ischemic change, stable compared to prior head CT.
-Stroke protocol
-plavix in ER,patient allergic to asa; per neurology Hold Eliquis, plan to restart Eliquis on 12/19 and stop clopidogrel at that time
-A1c 8.1
-cw PT/OT
-MRI demonstrates left-sided parietal and occipital ischemic stroke with mild amount of petechial hemorrhage, other areas of ischemic stroke in the left subcortical area of the basal ganglia
-Ultrasound of carotid Velocity profiles consistent with less than 50% bilateral internal carotid artery stenosis.
-Goal now normotension
-Neurology following
- cw modified diet
- Neuro input noted
- ECHO normal EF and no changes compared to 01/2022
# A-fib - Improved rate
- Was started on Cardizem drip, now off
- Initiated Cardizem oral daily ;was not on rate control meds . Rate much controlled
- BP stable ; EF normal
- Eliquis hold, restart 12/19
- Cardiology signed off
# Possible aspiration pneumonia
-Chest x-ray with impression of Haziness of left hemidiaphragm, which may be related to left lower lobe subsegmental atelectasis, aspiration, or pneumonia
-On IV Zosyn
-Blood culture neg
-Patient oxygenating very well on room air
- Switched to oral Augmentin
- diet upgraded by speech therapist.
Suspect Proteus UTI
Monitor
Already on antibiotic
# Chronic kidney disease 3b
-cr 1.6 today
-ctm
#History of RLE DVT (February 2021)
#Chronic heart failure preserved EF -stable.
-Not in acute exacerbation
-Torsemide resumed
#Essential hypertension
- On ACEI which is resumed
#Hyperlipidemia -on atorvastatin.
#DM2 without hyperglycemia
-Sliding scale
-Hold Lantus
#Depression
- sertraline
#Blindness
#Chronic Ambulatory Dysfunction
#Chronic Lymphedema and Venous Stasis bilateral lower extremities
#DNR per [facility]
Medically stable for DC to [place]
Follow with neurology as OP
More than 30 minutes spent in discharge including
Final examination of the patient
Summarizing hospital stay
Instructions for continuing care to all relevant caregivers
Preparation of discharge records, prescriptions, and referral forms
Total time spent (in minutes): 32
Anticipated Discharge: Today
Subjective/Interval History
-
Date of Service: December 17, 2023
remains alert and oriented. Voices no new specific complaints. Vision impairment as before. No limb weakness. No headache. No dizziness.
Objective Data
-
Labs:
Laboratory Results
12/17/23 12/17/23
06:19 13:02
WBC 6.8
Hgb 10.5 L 11.3 L
Hct 31.1 L 32.8 L
Plt Count 168
Sodium 139
Potassium 3.8
Chloride 114 H
Carbon Dioxide 21 L
BUN 25 H
Creatinine 1.6 H
Glucose 168 H
Calcium 8.9
Vital Signs:
Vital Signs
Temp Pulse Resp BP Pulse Ox
98.2 F 84 18 166/90 94
12/17/23 11:05 12/17/23 11:05 12/17/23 11:05 12/17/23 11:05 12/17/23 11:05
I&O
12/16/23 12/17/23 12/18/23
06:59 06:59 06:59
Intake Total 2785 / 2785 1999
Balance 2785 / 2785 1999
Review of Systems
-
Respiratory: Denies Trouble Breathing
Cardiac: Denies Chest Pain
Abdomen/GI: Denies Abdominal Pain, Nausea or Vomiting
Physical Exam
-
General: No Apparent Distress
HEENT: Moist Mucous Membranes
Respiratory: Clear to Auscultation
Cardiac: S1/S2 and Irregular Rhythm; Negative Tachycardic
GI: Soft, Nontender, Nondistended and Normal Bowel Sounds
Neuro: AO x 3 and Other (impaired vision as before); Negative No Motor Deficits
Psych: Calm; Negative Confused or Agitated
Data Reviewed
-
Labs: Labs Reviewed by me
--- NOTE | 2023-12-17 13:53 | W.DS.TRANS ---
DC Summary - [employer]
-
Discharge Instructions:
Discharge Diagnosis/Procedures Acute cerebral ischemic infarct; history of CVA
Diet Low Cholesterol
Activity As tolerated
Driving Restrictions No driving
Bathing Restrictions None
Instructions:
Stand-Alone Forms:
Changes to Home Medications: Yes
Discharge Medications:
DC Medications w/original date entered in [employer]
apixaban 5 mg tablet (Eliquis) 5 mg PO BID cerebral infarction 08/18/21
polyethylene glycol 3350 17 gram oral powder packet 17 g PO DAILY PRN constipation 09/15/21
sertraline 50 mg tablet 50 mg PO DAILY Depression 09/15/21
sorbitol 70 % solution 30 ml PO DAILY PRN constipation 09/15/21
polyvinyl alcohol-povidone (PF) 1.4 %-0.6 % eye drops in a dropperette (Refresh Classic (PF)) 1 drops BOTH EYES QID Eye condition 12/25/21
acetaminophen 325 mg tablet 650 mg PO Q6HPRN PRN mild pain, temp>100.4 01/23/22
atorvastatin 20 mg tablet 40 mg PO QPM High cholesterol 01/23/22
bisacodyl 10 mg rectal suppository (OneLAX Bisacodyl) 10 mg HI DAILYPRN PRN if no bm aftr mom 01/23/22
insulin aspart U-100 100 unit/mL (3 mL) subcutaneous pen (Novolog FlexPen U-100 Insulin aspart) 0 - 10 sliding scale dose SC AC Diabetes 08/26/22
sodium bicarbonate 650 mg tablet 650 mg PO BID gastro-esophageal reflux disease 08/26/22
docusate sodium 100 mg capsule 100 mg PO BID Constipation 12/12/23
insulin aspart U-100 100 unit/mL (3 mL) subcutaneous pen (Novolog FlexPen U-100 Insulin aspart) 4 units SC AC Diabetes 12/12/23
insulin glargine 100 unit/mL (3 mL) subcutaneous pen (Lantus Solostar U-100 Insulin) 5 unit SC HS Diabetes 12/12/23
isosorbide mononitrate 60 mg tablet,extended release 24 hr 60 mg PO DAILY Heart Condition 12/12/23
lisinopril 20 mg tablet 20 mg PO DAILY Blood Pressure 12/12/23
sennosides 8.6 mg-docusate sodium 50 mg tablet (Senna-S) 2 tab-cap PO HS Constipation 12/12/23
torsemide 40 mg tablet 40 mg PO DAILY Fluid Retention/Swelling 12/12/23
amoxicillin 500 mg-potassium clavulanate 125 mg tablet 1 tab PO Q12 #4 tabs 12/17/23
clopidogrel 75 mg tablet 75 mg PO DAILY #1 tab 12/17/23
diltiazem HCl 120 mg capsule,extended release 24 hr 120 mg PO DAILY #1 cap 12/17/23
Home Medication Changes
new medication-Cardizem CD, Plavix till 12/19/23, Augmentin
Pending Results: No
--- NOTE | 2023-12-17 15:01 | CM ---
Addendum entered by Seema Aguiar 12/17/23 16:03:
Per SNF- no other family or contact numbers on chart
Pt requested CM contact Jordyn and Jailene but she has no numbers for her nieces
Original Note:
CM reviewed chart and noted dc order
Return SNF bed confirmed with [facility] admissions
Medical necessity and transport form on chart
BLS arranged for 1700 pickup Acute Care
Bedside update to pt
IMM verbally reviewed due to blindness
Pt tearful asking for CM to drive her to her home in [facility]
Encouraged her to speak with SNF SW regarding transfer closer to home for LTC
Discharge Disposition- return [facility] SN[facility] via BLS 1700 pickup
Phone- [phone] ext. [phone] Fax- [phone]
[2023-12-17 15:10] VITALS: BP 146/92
[2023-12-17 16:27] LABS: Glucose - Point of Care 200 mg/dl (70-99)
--- NOTE | 2023-12-18 17:33 | CM ---
Received phone call from daughter Mellissa (home [phone], cell [phone]); she would like callback from tomorrow re; d/c plan.
== END 2023-12-17 17:42 | DRG 64 ==
LOC: 4 EAST ACU 14:40
PROVIDERS: Registered Nurse; ADMITTING PHYSICIAN Internal Medicine; ATTENDING PHYSICIAN Internal Medicine; CONSULT PHYSICIAN Internal Medicine; CONSULT PHYSICIAN Student in an Organized Health Care Education/Training Program; EMERGENCY PHYSICIAN Emergency Medicine; FAMILY PHYSICIAN Internal Medicine
PROC: 0DH67UZ Insertion of Feeding Device into Stomach, Via Natural or Artificial Opening (ICD-10-PCS; 2023-12-12)
DX: I63.532 Cerebral infarction due to unspecified occlusion or stenosis of left posterior cerebral artery (principal); J69.0 Pneumonitis due to inhalation of food and vomit; I50.32 Chronic diastolic (congestive) heart failure; I13.0 Hypertensive heart and chronic kidney disease with heart failure and stage 1 through stage 4 chronic kidney disease, or unspecified chronic kidney disease; I48.19 Other persistent atrial fibrillation; N39.0 Urinary tract infection, site not specified; J98.11 Atelectasis; R47.01 Aphasia; E11.22 Type 2 diabetes mellitus with diabetic chronic kidney disease; E11.42 Type 2 diabetes mellitus with diabetic polyneuropathy; E66.01 Morbid (severe) obesity due to excess calories; E78.00 Pure hypercholesterolemia, unspecified; N18.30 Chronic kidney disease, stage 3 unspecified; R26.2 Difficulty in walking, not elsewhere classified; R09.02 Hypoxemia; E11.319 Type 2 diabetes mellitus with unspecified diabetic retinopathy without macular edema; F32.A Depression, unspecified; K21.9 Gastro-esophageal reflux disease without esophagitis; I87.8 Other specified disorders of veins; I89.0 Lymphedema, not elsewhere classified; H54.7 Unspecified visual loss; B96.4 Proteus (mirabilis) (morganii) as the cause of diseases classified elsewhere; R41.82 Altered mental status, unspecified; Z66 Do not resuscitate; Z11.52 Encounter for screening for COVID-19; Z99.3 Dependence on wheelchair; Z79.01 Long term (current) use of anticoagulants; Z88.6 Allergy status to analgesic agent; Z88.1 Allergy status to other antibiotic agents; Z91.040 Latex allergy status; Z88.7 Allergy status to serum and vaccine; Z91.018 Allergy to other foods; Z91.048 Other nonmedicinal substance allergy status; Z79.4 Long term (current) use of insulin; Z79.84 Long term (current) use of oral hypoglycemic drugs; Z86.718 Personal history of other venous thrombosis and embolism; Z86.73 Personal history of transient ischemic attack (TIA), and cerebral infarction without residual deficits
CPT/HCPCS: 70450; 70544; 70551; 71045; 80048; 80053; 80061; 81003; 81015; 82140; 82607; 82728; 82746; 82962; 83036; 83605; 84145; 84443; 85014; 85018; 85025; 85027; 87040; 87070; 87077; 87086; 87186; 87502; 87811; 92507; 92523; 92526; 92610; 93005; 93306; 93880; 95816; 97163; 97167; 99291

== ENCOUNTER 2025-08-28 13:26 | Inpatient (IN) | payer MEDICARE, BC, SELFPAY ==
[2025-08-28] VITALS (12 sets, daily range): BP systolic 115–171; BP diastolic 80–110
[2025-08-28 10:23] LABS: Glucose - Point of Care 154 mg/dl (70-99)
--- NOTE | 2025-08-28 10:31 | ED.GENMED ---
History of Present Illness
General
Chief Complaint: Change Level of Consciousness
Source: patient, records, ambulance crew and retirement
Exam Limitations: clinical condition and dementia
Time Seen by Provider: 08/28/25 10:19
Nursing documentation reviewed up to this point in time: agreed with
History of Present Illness
History of Present Illness:
70-year-old female with a past medical history of prior stroke, blind in both eyes at baseline, history of asthma, hypertension, hyperlipidemia, CHF, atrial fibrillation, CKD, insulin-dependent diabetic, chronic lymphedema who presents to the
emergency department from [facility] for change in mental status. Patient cannot participate in history�she is nonverbal/aphasic on arrival. History is obtained from EMS as well as from a direct conversation with the retirement
staff: Apparently at baseline patient is able to talk and verbalize basic things but is oriented x 1. She will follow basic commands at baseline but she is nonambulatory and dependent for ADLs. She was apparently in her normal state of health
yesterday evening before bed at around 10:30 PM�staff did not note any recent fevers, cough, GI symptoms or other unusual symptoms recently. This morning when staff checked on her at around 9:45 AM they found her laying in bed staring straight
ahead, mouth open, not responding to any stimuli and very stiff. EMS was called to bring her to the hospital. Per EMS Accu-Chek was normal, vital signs stable and she was transported to the emergency department. No recent falls reported according
to retirement staff. Review of her medication list shows that she is on Eliquis. Chart review shows that she had an admission in November 2023 for an acute CVA with similar presentation.
Past History
Past History
ED Past Medical History: CHF, CVA, HTN, Hypercholesterolemia, IDDM, Renal failure (Chronic kidney disease) and Other (Cellulitis, bacteremia, morbid obesity, chronic lower extremity dermatitis, chronic ambulatory dysfunction, right lower extremity
DVT)
ED Past Surgical History: Other
Social History
Tobacco: Non-smoker
Alcohol: None
Drug: None
Living: retirement
Employment: Retired
Family History
Family History: Other and Unable to obtain
Review of Systems
Review of Systems
Unable to obtain full review of systems at this time due to: non-verbal
Other source history: retirement
All Other Systems: Not applicable
Phy Exam
Physical Exam
Physical Exam:
General: Eyes open, fixed forward gaze, not responding to verbal stimuli she does wince somewhat to painful stimuli
Head: Normocephalic, atraumatic
Eyes: Conjunctiva normal, pupils equal round and reactive to light bilaterally
Throat: Airway intact, handling secretions and apparently protecting her airway�she did have good gag reflex, no significant secretions in the upper airway on attempted suctioning and she is able to open and close her mouth to the suction catheter
Neck: Trachea midline
Lungs: Clear to auscultation bilaterally, no wheezing, rales, rhonchi
Heart: Regular rate and rhythm, faint systolic murmur appreciated
Abd: Soft, non distended, no apparent tenderness
Neuro: No clear facial droop, eyes fixed forward, nonverbal/not responding verbally; she is very rigid in her extremities but this rigidity appears to be symmetric in the upper and lower extremities; she is not following complex commands she was
able to blink when asked to blink and seemed to try to wiggle her toes when asked to raise her legs
Skin: Warm and dry, no overt signs of trauma
Extremities: Trace edema in the legs, extremities warm and well-perfused
Scores
NIH Stroke Score
Level of Consciousness: 1 - Arousable
LOC Questions: 2-Neither correct
LOC Commands: 1-Performs one correctly
Best Horizontal Gaze: 0-Normal
Visual [place]: 0=Normal, no visual loss
Facial Palsy: 0=Normal, symmetrical
Motor - Right Arm: 3=None vs. gravity
Motor - Left Arm: 3=None vs. gravity
Motor - Right Le-None vs. gravity
Motor - Left Le-None vs. gravity
Limb Ataxia: 0-Absent
Sensation: 0-Normal
Best Language: 3-Mute/global aphasia
Dysarthria: UN-Intubated, other
Extinction and Inattention: 0-No abnormality
NIH Total Score:: 19
MRS Score
Modified [place] Scale (mRS): Severe disability. Requires constant nursing care.
Score: 5
Thrombolytic Contraindication
Inclusion and Exclusion criteria reviewed: Yes
Reasons for NON-Tx with Thrombolytics ABSOLUTE Exclusions: Greater than 4.5 hrs from onset of sxs and Patient taking oral anticoagulant and last dose within 48 hours
Heart Failure Risk
Heart Failure Risk Score: Not Applicable
Heart Score for Chest Pain Patients
STEMI patient?: Not applicable
Withdrawal Assessment of Alcohol
Withdrawal Assessment Completed?: Not applicable
Course
Orders/Labs/Results
Orders:
Orders
08/28/25 10:24
CT BRAIN PERF STROKE ALERT Urgent
Comment:
Reason For Exam: aphasia, confusion
CT HEAD STROKE ALERT W/o Cont Urgent
Comment:
Reason For Exam: aphasia, confusion
CT HEAD/NECK ANG STROKE ALERT Urgent
Comment:
Reason For Exam: aphasia, confusion
Bedside Glucose- Treatment ONCE
Cardiac Monitoring- Treatment ONCE
IV Insert/Care/Rem.- Treatment PRN
08/28/25 10:25
Electrocardiogram (*1) Stat
Reason for Study: Other
Other Reason for Exam: neuro symptoms
EKG- Treatment ONCE
08/28/25 10:28
COVID-19 Antigen Urgent
Source: Nasal Swab
CPK [Creatine Phosphokinase] Urgent
Complete Blood Count/With Diff Urgent
Comprehensive Metabolic Panel Urgent
PTT Urgent
Prothrombin Time Urgent
TSH Reflex To Free T4 Urgent
Troponin I Urgent
Influenza A+B Rapid Molecular Urgent
DARBY Source: Nasal Swab
Specimen Description:
08/28/25 11:03
0.9% Sodium Chloride 1000 ml [Nss] 1,000 ml IV BOLUS
CR Chest Portable - 1 View Urgent
Comment:
Reason For Exam: confused, eval for pna
Reason Study Needs to be Portable: Patient Unstable
08/28/25 11:32
Urinalysis Reflex To Culture Urgent
Date Specimen was Collected: 08/28/25
Time Specimen was Collected: 11:12
08/28/25 11:34
Straight cath- Treatment ONCE
Abnormal Lab Results
08/28/25 08/28/25
10:21 10:28
RBC 3.89 L 10^6/uL
(4.20-5.40)
Hgb 10.9 L g/dL
(12.0-16.0)
Hct 33.1 L %
(37.0-47.0)
MCHC 32.9 L g/dL
(33.0-37.0)
MPV 11.0 H fL
(7.4-10.4)
Absolute Lymphs (auto) 1.0 L 10^3/uL
(1.2-3.4)
Neutrophils % 75.6 H %
(42.2-75.2)
Lymphocytes % 14.5 L %
(20.5-51.1)
PT 18.2 H Sec
(11.4-14.6)
Chloride 113 H mmol/L
(98-107)
BUN 64 H mg/dl
(7-17)
Creatinine 2.5 H mg/dL
(0.6-1.0)
Glucose 146 H mg/dl
(70-99)
Creatine Kinase 20 L U/L
(30-135)
POC Glucose 154 H mg/dl
(70-99)
08/28/25 10:28
08/28/25 10:28
Vital Signs
Initial and Last Documented VS:
Initial Vital Signs
Temp Pulse Resp BP Pulse Ox
37.3 C 82 16 134/110 95
08/28/25 10:20 08/28/25 10:20 08/28/25 10:20 08/28/25 10:20 08/28/25 10:20
Last Documented Vital Signs
Temp Pulse Resp BP Pulse Ox
37.3 C 87 22 162/90 100
08/28/25 10:20 08/28/25 10:56 08/28/25 10:56 08/28/25 10:56 08/28/25 10:56
MDM/Problems Addressed
Differential Diagnosis Includes:
CVA/brain bleed, seizure, encephalopathy�polypharmacy, infection,etc
MDM/Problems Addressed:
70-year-old female presents from retirement for a change in mental status. She has a poor functional baseline it sounds like according to retirement staff dependent for ADLs, nonambulatory, oriented x 1 at baseline. Found essentially not
responding to verbal stimulus, very stiff and rigid this morning. She is hypertensive but vital signs are otherwise normal here, no fever. Stroke alert was called after initial assessment and neurology evaluated the bedside. Sent for CT head, CTA
head and neck, CT perfusion. Check labs including a CBC and a CMP, CPK. Check viral swabs, chest x-ray, urinalysis. Will monitor very closely reassess at the above.
CT called by per radiology no acute hemorrhage. Significant chronic changes but no acute abnormality. Discussed case with neurology, patient would not be thrombolytic candidate for multiple reasons including anticoagulant use and outside safe
window for use. Awaiting results of CTA but would likely not be thrombectomy candidate either given her poor functional status and high modified [place] score. Continue to monitor here pending rest of workup.
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
artery. Discussed with neurology unfortunately not an IT candidate. Recommend admission for MRI, also recommended workup for other causes of encephalopathy.
Labs reviewed: CBC shows stable anemia, chemistry shows renal insufficiency with elevated BUN and creatinine from baseline. Electrolytes acceptable. Troponin undetectable. Thyroid studies normal. Viral swabs are negative, chest x-ray no
pneumonia. At this point we will admit for continued workup of mental status change�leading concern at this point is acute CVA. Unfortunately patient has anaphylactic allergy to aspirin and so this was not given. She is already on Eliquis,
maintain for now.
Chronic conditions affecting care:
Dementia, A-fib, prior CVA
Acute Exacerbation and/or Progression of Chronic Illness:
Acutely hypertensive
Acute Exacerbation and/or Progression of Chronic Illness: HTN
*Radiology
Radiology exam reviewed: preliminary read by ED provider and radiology read reviewed
*Pulse Oximetry
SaO2: 95
Oxygen Mode of Delivery: Room air
Patient hypoxic: no (95%)
*EKG
Interpreted by ED Provider?: Yes
Heart Rate: 81
Rate: normal
Rhythm: a-fib
[place]: normal axis
Interval: long QT
QRS Pattern: normal QRS
Ischemia: non-specific ST changes
*Critical Care Note
Total Time (30-74mins, 75-104mins- exclusive of procedures): Not Applicable
Data Reviewed
Review of Other/Old Records Reveals: Labs, Records and Discharge Summary
Source: records, ambulance crew and retirement
Prescriptions/Medications Considered But Not Given:
Considered whether the patient would be a candidate for tenecteplase
Patient Management
Discussion with other providers: Hospitalist (Discussed with hospitalist), Medical Record Librarian (Discussed with neurology), Radiologist (Discussed with radiology) and detention staff (Discussed directly with retirement staff)
Escalation/DeEscalation of care consider admission/obs:
Admission indicated
ED Attending Note
-
Portions of this chart may have been created with voice recognition software.� Occasional wrong word or��sound alike� substitutions may have occurred due to the inherent limitations of voice recognition software.
Discharge Plan
Departure
Patient Disposition: Admit
Date of Disposition: 08/28/25
Time of Disposition: 12:18
Admit to doctor: Alex
Presentation/result/management discussed w/ accepting MD/DO: Hospitalist
Discharge Problem:
Acute CVA (cerebrovascular accident)
Prescriptions:
No Action
Eliquis 5 MG tablet
5 mg PO BID
polyethylene glycol 3350 17 GRAMS powder in packet
17 g PO DAILY PRN (Reason: constipation)
Patient Comments:
4-8 ounces of fluid
sorbitol 30 ML solution
30 ml PO DAILY PRN (Reason: constipation)
sertraline 50 MG tablet
50 mg PO DAILY
Refresh Classic (PF) 10 DROPS dropperette
1 drops BOTH EYES QID
acetaminophen 325 MG tablet
650 mg PO Q6HPRN PRN (Reason: mild pain, temp>100.4)
atorvastatin 20 MG tablet
40 mg PO QPM
bisacodyl [OneLAX Bisacodyl] 10 MG suppository
10 mg CA DAILYPRN PRN (Reason: if no bm aftr mom)
sodium bicarbonate 650 MG tablet
650 mg PO BID
insulin aspart U-100 [Novolog FlexPen U-100 Insulin] 100 unit/mL (3 mL) insulin pen
0 - 10 sliding scale dose SC AC
Patient Comments:
BS 150-200=2 units, 201-250=4 units, 251-300=6 units, 301-350=8 units, 351-400=10 units.
lisinopril 20 mg tablet
20 mg PO DAILY
sennosides-docusate sodium [Senna-S] 8.6-50 mg Tablet
2 tab-cap PO HS
isosorbide mononitrate 60 mg tablet extended release 24 hr
60 mg PO DAILY
insulin glargine [Lantus Solostar U-100 Insulin] 100 unit/mL (3 mL) insulin pen
5 unit SC HS
torsemide 40 mg Tablet
40 mg PO DAILY
insulin aspart U-100 [Novolog FlexPen U-100 Insulin] 100 unit/mL (3 mL) insulin pen
4 units SC AC
docusate sodium 100 mg capsule
100 mg PO BID
clopidogrel 75 mg Tablet
75 mg PO DAILY Qty: 1 0RF
Rx Instructions:
till 12/18 and then stop. Start on Eliquis 12/19
diltiazem HCl 120 mg Capsule,Extended Release 24hr
120 mg PO DAILY Qty: 1 0RF
amoxicillin-pot clavulanate 500-125 mg Tablet
1 tab PO Q12 Qty: 4 0RF
Referrals:
Kiera Loya MD [Family Provider]
Interventions
Interventions:
*Risk Screen - Suicide Last Done: 08/28/25 10:23
*General Assessment Last Done: 08/28/25 10:23
*Neglect/Abuse Screening Last Done: 08/28/25 10:23
*ED COVID-19 Vaccine History Last Done: 08/28/25 10:23
*ED Influenza Vaccine History Last Done: 08/28/25 10:23
[facility] Fall Risk Assessment Tool Last Done: 08/28/25 10:25
ED- Pulmonary Assessment Last Done: 08/28/25 10:23
ED-Psychological Assessment Last Done: 08/28/25 10:23
ED- Neurological Assessment Last Done: 08/28/25 10:35
ED- Cardiac Assessment Last Done: 08/28/25 10:23
Discharge Date and Time
Print Language: VINCENTIAN
[2025-08-28 10:41] LABS: Hematocrit 33.1 % (37.0-47.0); Hemoglobin 10.9 g/dL (12.0-16.0); Mean Corp Hgb Conc. 32.9 g/dL (33.0-37.0); Mean Corpuscular Volume 85.1 fL (81.0-99.0); Nucleated Red Blood Cells % 0 %; Platelet Count 234 10^3/uL (130-400); Red Cell Dist. Width 13.0 % (11.5-14.5)
[2025-08-28 10:54] LABS: INR 1.50; PT 18.2 Sec (11.4-14.6)
[2025-08-28 10:55] LABS: APTT 34.2 Sec (23.4-35.0)
[2025-08-28 10:56] LABS: ALT (SGPT) 12 U/L (0-35); AST (SGOT) 14 U/L (14-36); Albumin 3.7 g/dl (3.5-5.0); Alkaline Phosphatase 112 U/L (38-126); Blood Urea Nitrogen 64 mg/dl (7-17); Calcium 9.5 mg/dl (8.4-10.2); Carbon Dioxide 22 mmol/L (22-30); Chloride 113 mmol/L (98-107); Glucose 146 mg/dl (70-99); Potassium 4.3 mmol/L (3.5-5.1); Sodium 143 mmol/L (135-145); Total Protein 6.7 g/dl (6.3-8.2); eGFR 20.06
[2025-08-28 11:06] LABS: Troponin I < 0.012 ng/ml
--- NOTE | 2025-08-28 11:19 | CON.NEURO ---
Addendum entered and electronically signed by Shashank Dent MD 08/28/25 11:54:
TNK not given due to outside of window and on eliquis at baseline. Not a candidate for thrombectomy due to no LVO.
Original Note:
Neuro Assessment/Plan
Assessment
#AMS
#Aphasia
her presentation is non-focal. Her lack of speech output could be aphasia or AMS. she doesn't have focal weakness on exam to suggest a stroke. Her rigidity is slightly less on the right though. I recommend an MRI head w/o contrast to assess for
stroke. She had a similar presentation in 2023 with this. This could be recrudescence of old stroke symptoms. I recommend an infectious work-up to assess for causes of stroke recrudescence with CXR and U/A. This is unlikely to be Heraclio's paralysis.
No seizure activity was noted and AMS isn't clearly confusion and paralysis isn't focal. Her rigidity suggests either a parkinsonian state or dystonic reaction, but no new meds to cause this is in the history. CTA showed complete occlusion of P3
right QA TESTER, but her presentation is inconsistent with an acute QA TESTER infarct.
Plan
- MRI head w/o contrast
- Infectious work-up
- c/w eliquis for now. Unclear if this is stroke.
Consultation
Order
Date of Consultation: 08/28/25
Requesting Provider:
Reason for Consult:
Subjective/Objective
Subjective Data
Date of Service: August 28, 2025
Ms. Fierro can't participate in providing history. History is obtained from ED and chart review.
HPI: Ms. Fierro is a 70-year-old woman with a PMH of previous left-sided CVA, afib on eliquis, HTN, HLD, T2DM, CKD, peripheral neuropathy presenting as stroke alert for acute mental status change. According to report given to ED, her last known
normal was 10pm when she went to sleep. She resides at a facility and staff checked on her on the morning of presentation at 9:45am. She was rigid in all extremities. She was not responding and thus EMS was called. At baseline, she can speak and
verbalize and is AOx1 and is blind at baseline. On presentation here on my exam, she didn't follow any commands. She was very rigid on exam. She was taken to CT scan that was negative for acute hemorrhage and LVO. Of note, she had a similar
presentation 11/2023 for altered mental status and found to have new left sided strokes.
PMH: stated above
PSH: Unable to obtain 2/2 AMS
Allergies: Per chart, Unable to obtain 2/2 AMS
Home Meds: Per chart, Unable to obtain 2/2 AMS
FH: Unable to obtain 2/2 AMS
SH: Unable to obtain 2/2 AMS
Objective Data
Vital Signs
Temp Pulse Resp BP Pulse Ox
37.3 C 87 22 162/90 100
08/28/25 10:20 08/28/25 10:56 08/28/25 10:56 08/28/25 10:56 08/28/25 10:56
Lab Results
08/28/25 10:28
08/28/25 10:28
PT 18.2 Sec (11.4-14.6) H 08/28/25 10:28
INR 1.50 08/28/25 10:28
APTT 34.2 Sec (23.4-35.0) 08/28/25 10:28
Sodium 143 mmol/L (135-145) 08/28/25 10:28
Potassium 4.3 mmol/L (3.5-5.1) 08/28/25 10:28
BUN 64 mg/dl (7-17) H 08/28/25 10:28
Glucose 146 mg/dl (70-99) H 08/28/25 10:28
Calcium 9.5 mg/dl (8.4-10.2) 08/28/25 10:28
Patient Allergies
adhesive tape Allergy (Verified 12/26/21 17:23)
Rash
aspirin Allergy (Verified 12/12/23 14:35)
Anaphylaxis
coconut Allergy (Verified 12/26/21 17:23)
Rash
latex Allergy (Verified 12/26/21 17:23)
Rash
pneumococcal vaccine Allergy (Verified 12/25/21 09:40)
Unknown
vancomycin Allergy (Verified 12/25/21 09:40)
Unknown
CVA Assessment
Onset of Stroke Symptoms
Onset of symptoms known: Yes
Date of onset of symptoms: 08/28/25
Time of onset of symptoms: 09:45
Time pt last seen normal is known: Yes
Date last time pt seen normal: 08/27/25
Time last time pt seen normal: 22:00
NIH Stroke Score
Level of Consciousness: 1 - Arousable
LOC Questions: 2-Neither correct
LOC Commands: 1-Performs one correctly
Best Horizontal Gaze: 0-Normal
Visual Del Toro: 3=Bilateral hemianopia
Facial Palsy: 0=Normal, symmetrical
Motor - Right Arm: 4=No movement
Motor - Left Arm: 4=No movement
Motor - Right Le-No movement
Motor - Left Le-No movement
Limb Ataxia: 0-Absent
Sensation: 1-Mild loss
Best Language: 3-Mute/global aphasia
Dysarthria: UN-Intubated, other
Explanation of inability to score dysarthria: no speech output
Extinction and Inattention: 0-No abnormality
NIH Total Score:: 27
Tenecteplase Contraindications
Inclusion and Exclusion criteria reviewed: Yes
Reasons for NON-Tx with Thrombolytics ABSOLUTE Exclusions: Patient taking oral anticoagulant and last dose within 48 hours
Physical Exam
-
General: Appears Chronically Ill
Eyes: Unremarkable
HEENT: Normocephalic
Respiratory: Clear to Auscultation
Cardiac: Regular Rhythm
GI: Normal Bowel Sounds
Skin: Unremarkable
Extended Neurological Exam
Mood & Affect: Mood Unremarkable and Affect Unremarkable
Attention Span & Concentration: Awake (will wake up to verbal and tactile stimuli. Mouth kept open. No response to any questions.)
Memory: Unable to Assess
Tremor: Hand Tremor Absent
Involuntary Movement: None
Speech: Unable to Assess
Cranial Nerve II: Left Eye: Pupillary Reactivity Unremarkable and No Vision
Cranial Nerve II: Right Eye: Pupillary Reactivity Unremarkable and No Vision
Cranial Nerves III, IV, : Extraocular Movement: Other (will cross midline in both directions with her eyes. Unable to completely assess EOM due to blindness and poor mental status)
Cranial Nerve V: Facial Sensation: Unable to Assess
Cranial Nerve VII: Facial Symmetry: Unable to Assess (no nasolabial fold flattening seen)
Cranial Nerve VIII: Hearing: Unable to Assess
Cranial Nerves IX, X: Palate Movement: Unable to Assess
Cranial Nerve XI: Shoulder Shrug: Unable to Assess
Cranial Nerve XII: Tongue Protusion: Unable to Assess
Muscle Strength, Overall: Unable to Assess (her arms were rigid (L>R). She had a grasp reflex. legs were also rigid but less than arms. possible cogwheel rigidity.)
Muscle Bulk & Tone: Bulk Unremarkable
Pronator Drift: Unable to Assess
Deep Tendon Reflexes: Trace Throughout
Touch Sensation: Withdrawal to Pain (in all 4 extremities)
Coordination: Unable to Assess
Babinski Sign: Absent Bilaterally
Gait & Station: Unable to Assess
Data Reviewed
-
CT-A: Image Reviewed (significant stenosis of right ICA and slightly better in left ICA. severe intracranial atherosclerosis.)
CT Head: Image Reviewed (no acute hemorrhage)
Medications
-
Active Medications
Generic Name Dose Route Start Last Admin
Trade Name Freq PRN Reason Stop Dose Admin
Sodium Chloride 1,000 mls @ 1,000 mls/hr 08/28/25 11:03
Nss IV 08/28/25 12:02
BOLUS ONE
Home Medications
�Medication �Instructions �Recorded
apixaban 5 mg tablet (Eliquis) 5 mg PO BID cerebral infarction 08/18/21
Held on 12/17/23.
Instructions: Resume on
12/19/23. can start on 12/19
polyethylene glycol 3350 17 gram 17 g PO DAILY PRN constipation 09/15/21
oral powder packet
sertraline 50 mg tablet 50 mg PO DAILY Depression 09/15/21
sorbitol 70 % solution 30 ml PO DAILY PRN constipation 09/15/21
polyvinyl alcohol-povidone (PF) 1 drops BOTH EYES QID Eye condition 12/25/21
1.4 %-0.6 % eye drops in a
dropperette (Refresh Classic (PF))
acetaminophen 325 mg tablet 650 mg PO Q6HPRN PRN mild pain, 01/23/22
temp>100.4
atorvastatin 20 mg tablet 40 mg PO QPM High cholesterol 01/23/22
bisacodyl 10 mg rectal suppository 10 mg TN DAILYPRN PRN if no bm 01/23/22
(OneLAX Bisacodyl) aftr mom
insulin aspart U-100 100 unit/mL 0 - 10 sliding scale dose SC AC 08/26/22
(3 mL) subcutaneous pen (Novolog Diabetes
FlexPen U-100 Insulin aspart)
sodium bicarbonate 650 mg tablet 650 mg PO BID gastro-esophageal 08/26/22
reflux disease
docusate sodium 100 mg capsule 100 mg PO BID Constipation 12/12/23
insulin aspart U-100 100 unit/mL 4 units SC AC Diabetes 12/12/23
(3 mL) subcutaneous pen (Novolog
FlexPen U-100 Insulin aspart)
insulin glargine 100 unit/mL (3 5 unit SC HS Diabetes 12/12/23
mL) subcutaneous pen (Lantus
Solostar U-100 Insulin)
isosorbide mononitrate 60 mg 60 mg PO DAILY Heart Condition 12/12/23
tablet,extended release 24 hr
lisinopril 20 mg tablet 20 mg PO DAILY Blood Pressure 12/12/23
sennosides 8.6 mg-docusate sodium 2 tab-cap PO HS Constipation 12/12/23
50 mg tablet (Senna-S)
torsemide 40 mg tablet 40 mg PO DAILY Fluid 12/12/23
Retention/Swelling
amoxicillin 500 mg-potassium 1 tab PO Q12 #4 tabs 12/17/23
clavulanate 125 mg tablet
clopidogrel 75 mg tablet 75 mg PO DAILY #1 tab 12/17/23
diltiazem HCl 120 mg 120 mg PO DAILY #1 cap 12/17/23
capsule,extended release 24 hr
[2025-08-28 11:31] LABS: COVID-19 Antigen Negative (Negative)
[2025-08-28] MEDS: NSS 1000 IV ×2 (11:34→17:19)
[2025-08-28 12:23] LABS: Urine Character Clear (Clear)
--- NOTE | 2025-08-28 12:34 | HPS.HSE ---
Addendum entered and electronically signed by MARY Bell 08/29/25 05:02:
Pt does not have a chronic muñoz.
Original Note:
Family Physician
-
Family Physician: Kiera Loya
Chief Complaint
-
Obtunded, change in mental status, rigid
History of Present Illness
70-year-old female from [facility] with baseline dementia oriented x 1 and bedbound presenting with reported aphasia and obtunded. She was seen last known normal at 10 PM yesterday 08/27/2025 this morning she was found at 945 appeared
to be rigid and extremities not responding unable to verbalize she is reported blind at baseline patient is sitting up in bed with eyes closed mouth open with rigid extremities does not respond to name. Does not appear to have fever, chills, rash,
vomiting, diarrhea, abdominal distention, diaphoresis on exam. She has a chronic Muñoz catheter with leg bag on exam. She has past medical history of left parietal occipital lobe CVA with mild petechial hemorrhage 09/15/2021, left subcortical basal
ganglia CVA, dementia with bedbound status oriented x 1 at baseline, HTN, chronic bilateral carotid stenosis greater than 70%, aspiration pneumonia December 2021, DM 2, permanent A-fib,DVT right lower extremity 03/04/2021, HLD, CKD 4, chronic Muñoz
catheter on admission, depression, GI bleed lower 2021, chronic lymphedema bilateral lower legs with chronic venous stasis, insomnia, Proteus UTI December 2023, blind bilateral eyes reported chronic hypoxic respiratory failure on oxygen at residential
Medical History
Past Medical History
Past Medical History: Reports Other
Additional Past Medical History:
Left parietal occipital lobe CVA with mild petechial hemorrhage 09/15/2021
Left subcortical basal ganglia CVA
Dementia with bedbound status oriented x 1 at baseline
Anxiety
HTN
Chronic bilateral carotid stenosis greater than 70%
Aspiration pneumonia December 2021
Chronic hypoxic respiratory failure on O2 at residential
DM 2
Permanent A-fib
DVT right lower extremity 03/04/2021
HLD
CKD 4
Chronic Muñoz catheter on admission
Proteus UTI December 2023.
Depression
GI bleed lower 08/25/2022
C. difficile 2021
Chronic lymphedema bilateral lower legs with chronic venous stasis
Insomnia
Blind bilateral eyes
Past Surgical History: Reports Other
Additional Past Surgical History:
Cryosurgery unknown type
Social History
Tobacco: Non-smoker
Alcohol: None
Drug: None
Personal: Single
Living: Assisted ([facility])
Employment: Retired
Family History
Family History: Unable to Obtain
Allergies / Home Medications
Allergies reflects when Allergies were last updated in [facility].
Home Medications with original date entered in [facility]
Allergy/Medication List:
Allergies
Allergy/AdvReac Type Severity Reaction Status Date / Time
adhesive tape Allergy Rash Verified 12/26/21 17:23
aspirin Allergy Anaphylaxis Verified 12/12/23 14:35
coconut Allergy Rash Verified 12/26/21 17:23
latex Allergy Rash Verified 12/26/21 17:23
pneumococcal vaccine Allergy Unknown Verified 12/25/21 09:40
vancomycin Allergy Unknown Verified 12/25/21 09:40
Home Medications
apixaban 5 mg tablet (Eliquis) 5 mg PO BID cerebral infarction 08/18/21
Held on 12/17/23. Instructions: Resume on 12/19/23. can start on 12/19
polyethylene glycol 3350 17 gram oral powder packet 17 g PO DAILY PRN constipation 09/15/21
acetaminophen 325 mg tablet 650 mg PO Q6HPRN PRN mild pain, temp>100.4 01/23/22
atorvastatin 20 mg tablet 40 mg PO HS High cholesterol 01/23/22
bisacodyl 10 mg rectal suppository (OneLAX Bisacodyl) 10 mg WA DAILYPRN PRN if no bm aftr mom 01/23/22
insulin aspart U-100 100 unit/mL (3 mL) subcutaneous pen (Novolog FlexPen U-100 Insulin aspart) 0 - 10 sliding scale dose SC AC Diabetes 08/26/22
docusate sodium 100 mg capsule 100 mg PO BID Constipation 12/12/23
insulin aspart U-100 100 unit/mL (3 mL) subcutaneous pen (Novolog FlexPen U-100 Insulin aspart) 6 units SC AC Diabetes 12/12/23
insulin glargine 100 unit/mL (3 mL) subcutaneous pen (Lantus Solostar U-100 Insulin) 10 unit SC HS Diabetes 12/12/23
isosorbide mononitrate 60 mg tablet,extended release 24 hr 60 mg PO QPM Heart Condition 12/12/23
sennosides 8.6 mg-docusate sodium 50 mg tablet (Senna-S) 2 tab-cap PO HS Constipation 12/12/23
torsemide 40 mg tablet 40 mg PO DAILY Fluid Retention/Swelling 12/12/23
diltiazem HCl 120 mg capsule,extended release 24 hr 120 mg PO DAILY #1 cap 12/17/23
emollient combination no.119 (Eucerin Advanced Repair topical cream) 1 applic topical DAILY b/l L.E. 08/28/25
ezetimibe 10 mg tablet 10 mg PO DAILY 08/28/25
glucagon 1 mg/0.2 mL subcutaneous syringe (Gvoke PFS 1-Pack) 1 mg SC DAILYPRN PRN hypoglycemia, bs<60 08/28/25
hydroxyzine HCl 25 mg tablet 25 mg PO QID 08/28/25
lisinopril 40 mg tablet 40 mg PO DAILY 08/28/25
melatonin 3 mg tablet 3 mg PO HS 08/28/25
ondansetron HCl 4 mg tablet 4 mg PO Q8H PRN vomiting, nausea 08/28/25
sertraline 25 mg tablet 25 mg PO DAILY 08/28/25
sorbitol 70 % solution 30 ml PO DAILYPRN PRN constipation 08/28/25
Review of Systems
-
History Source: Assisted and Other (ER record)
A 12 point ROS was completed and negative except as noted: Yes
Constitutional: Reports Other (Obtunded rigid extremities); Denies Fever or Chills
EENT: Reports Other (Dry oral mucosa)
Respiratory: Denies Cough or Trouble Breathing
Cardiac: Denies Diaphoresis
Abdomen/GI: Denies Vomiting or Diarrhea
: Reports Muñoz (Present on admission with leg bag)
Musculoskeletal: Reports Muscle Stiffness (Extremities appear rigid); Denies Joint Swelling
Skin: Denies Rash
Neurological: Reports Other (Obtunded)
Psych: Reports Other (Obtunded)
Physical Exam
Vital Signs
Vital Signs
Temp Pulse Resp BP Pulse Ox
99.1 F 87 22 162/90 100
08/28/25 10:20 08/28/25 10:56 08/28/25 10:56 08/28/25 10:56 08/28/25 10:56
Physical Exam
General: Other (Patient obtunded with rigid extremities)
HEENT: NormoCephalic, Anicteric, [place] Conjunctivae and Other (Blind bilateral eyes, dry oral mucosa)
Respiratory: Clear; No Wheezes, Rales or Rhonchi
Cardiac: S1/S2 and Irregular Rhythm (A-fib HR 86 bpm); No Murmur, Rub, Gallop or Peripheral Edema
Breast: Deferred by me
GI: Soft, Non Tender, Non Distended, Normal Bowel Sounds and No Hepatosplenomegaly
Rectal: Deferred by Provider
Genito-urinary: Muñoz (Present on admission with leg bag)
Musculoskeletal: No Clubbing, No Cyanosis and No Edema
Skin: Warm and Dry; No Rash
Neuro: Other (Patient obtunded does not answer to name extremity. Rigid)
Psych: Other (Obtunded history of baseline dementia normally oriented x 1 per residential record)
Laboratory Results
-
08/28/25 10:28
08/28/25 10:28
Laboratory Results
PT 18.2 Sec (11.4-14.6) H 08/28/25 10:28
INR 1.50 08/28/25 10:28
APTT 34.2 Sec (23.4-35.0) 08/28/25 10:28
Total Bilirubin 0.4 mg/dl (0.2-1.3) 08/28/25 10:28
AST 14 U/L (14-36) 08/28/25 10:28
ALT 12 U/L (0-35) 08/28/25 10:28
Alkaline Phosphatase 112 U/L (38-126) 08/28/25 10:28
Troponin I < 0.012 ng/ml 08/28/25 10:28
Data Reviewed
-
Diagnostic Radiology: Report Reviewed by me
Lab Data: Labs Reviewed by me
Impression/Plan
-
Impression/plan:
Admit to telemetry
#Encephalopathy with obtunded state concern for CVA vs infectious cause
#History of prior CVAs,�left parietal occipital lobe 09/15/2021 with mild petechial hemorrhage, left subcortical basal ganglia CVA baseline oriented x 1 bedbound
COVID and flu negative, urinalysis negative, CXR negative, afebrile WBC 6.8
- Allergy to aspirin
- N.p.o. as patient does not respond to name
- Consult Neuro
-okay for IV heparin drip per Neuro Dr machado no bolus given patient on Eliquis for A-fib history also DVT unable to swallow due to obtunded state
-MRI brain
- Consult PT consider speech eval when patient is awake
NECK CTA:
1. SEVERE STENOSIS (greater than 70% diameter) in the PROXIMAL RIGHT ICA.
2. 50-70% diameter stenosis in the proximal left ICA.
3. No CTA evidence for stenosis in the cervical segments of the vertebral arteries.
4. Moderate calcific atherosclerotic plaque in the coronary arteries.
5. Severe discogenic degenerative disease at C5/C6.
6. Mild multilevel spinal cord compression and central canal stenosis.
HEAD CTA:
1. Severe atherosclerotic plaque in BOTH INTRACRANIAL INTERNAL CAROTID ARTERIES causing SEVERE STENOSES (greater than 70% diameter).
2. Complete occlusion of the A1 segment of the right anterior cerebral artery.
3. Greater than 70% diameter stenosis in the left intracranial vertebral artery.
4. 50-70% diameter stenosis in the right intracranial vertebral artery.
5. 50-70% diameter stenosis in the basilar artery.
6. COMPLETE OCCLUSION of the P3 segment of the RIGHT POSTERIOR CEREBRAL ARTERY.
7. Chronic transcortical infarcts in the posterior occipital lobes and right parietal lobe.
8. Moderate white matter leukoaraiosis in both cerebral hemispheres.
CXR: No evidence for pneumonia, severe DDD thoracic lumbar spine
#Chronic stenosis bilateral carotid arteries
Severe stenosis> 70% proximal right ICA, left ICA
#ALEXANDRA on CKD 4
Chronic Muñoz catheter present on admission unclear etiology
History of Proteus UTI December 2023
Creat 2.5/bun 64 baseline appears 1.6
-Urinalysis negative
-Hold lisinopril 40 mg daily, torsemide 40 mg daily
-IV NSS 1 L given in ER
- Continue IV NSS 60 cc an hour
#Dementia with chronic bedbound status
Baseline oriented x 1
Patient currently obtunded does not respond to name sleeping with mouth open
#History of aspiration pneumonia 12/18/2023
History of reported chronic hypoxic respiratory failure on O2 at residential however is 100% on room air in ER
Will monitor pulse ox
#HTN
BP 162/90
IV Cardizem 5 mg scheduled every 6 h prn if HR >120 or SBP >180
#HLD
Check lipid profile
Was on atorvastatin is obtunded
#A-fib�permanent
Unable to take due to being obtunded- Cardizem 120 mg daily, Eliquis 5 mg twice daily
- IV Cardizem 5 mg scheduled every 6 h prn if HR >120 or SBP >180
-Will start IV heparin drip no bolus as patient is obtunded unable to take oral Eliquis
EK bpm, A-fib QTc B513 MS chronic nonspecific T wave abnormality anterolateral leads
#DM 2
Accu-Cheks with SSI, check HgbA1c
Hypoglycemia coverage
#Normocytic anemia
Hgb 10.9, MCV 85.1-baseline appears 11.3
#Depression
Prior Zoloft
#Chronic lymphedema venous stasis bilateral lower extremities
Hold torsemide 40 mg daily
#Insomnia
Hold melatonin 3 mg at bedtime
DVT prophylaxis
IV heparin drip since patient obtunded unable to take oral Eliquis
DNR per [facility]
[2025-08-28 13:18] LABS: Urine Squamous Cell None seen /LPF (Few)
[2025-08-28] MEDS: HEPARIN 25000 UNITS/250 ML IV (13:42)
--- NOTE | 2025-08-28 13:57 | EDCM ---
Reviewed chart, unable to speak with pt. I left a voicemail for her daughter Mellissa.
Information obtained from [facility] transfer sheet and prior CM notes.
Pt resides at [facility] since 2019.
She has a history of CVA, Dementia, Depression, HTN, HLD, Afib, UTI, Chronic Lymphedema, Asthma, CHF, CAD. She is Blind.
Pt has been bedbound for several years, Max assist of 2, refuses to get OOB to .
PCP: Kiera Loya
Pharmacy: [facility] listed on transfer sheet.
Anticipate return to [facility] when medically stable, CM will continue to follow.
--- NOTE | 2025-08-28 15:38 | W.PN.UPDATE ---
Update Note
Progress Note Update
Attending admit note
Patient seen independently
Initial presentation
70-year-old woman with dementia and bedbound comes in with aphasia and is obtunded. She was seen last known normal at 10 PM yesterday 08/27/2025 this morning she was found at 945 with rigid extremities, not responding, unable to verbalize. Does
not appear to have fever, chills, rash, vomiting, diarrhea, abdominal distention, diaphoresis on exam. Chronic Serrano catheter with leg bag. She did not provide me any history, and did not react to my exam.
Imaging:
1. No CT evidence for acute intracranial hemorrhage or transcortical infarct.
2. Large chronic transcortical infarct in the posterior left occipital lobe.
3. Small chronic transcortical infarcts in the posterior right parietal and occipital lobes.
4. Small chronic infarcts in the periventricular white matter of the right frontal lobe.
5. Small chronic infarcts in both cerebellar hemispheres.
6. Moderate white matter leukoaraiosis in both cerebral hemispheres.
7. Severe ex vacuo dilatation of the occipital horns and bodies of the lateral ventricles.
8. Severe bilateral calvarial hyperostosis.
9. Severe intracranial calcific atherosclerotic plaque.
Past Medical History
Left parietal occipital lobe CVA with mild petechial hemorrhage 09/15/2021
Left subcortical basal ganglia CVA
Dementia with bedbound status oriented x 1 at baseline
Anxiety
HTN
Chronic bilateral carotid stenosis greater than 70%
Aspiration pneumonia Decemberhronic hypoxic respiratory failure [facility] at [facility]
DM 2
Permanent A-fib
DVT right lower extremity 03/04/2021
HLD
CKD 4
Chronic Serrano catheter on admission
Proteus UTI December 2023.
Depression
GI bleed lower 08/25/2022
C. difficile 2021
Chronic lymphedema bilateral lower legs with chronic venous stasis
Insomnia
Blind bilateral eyes
Physical Exam
General: Patient obtunded with rigid extremities
HEENT: Blind bilateral eyes, dry oral mucosa
Respiratory: Clear
Cardiac: S1/S2 and Irregular Rhythm
GI: Soft, Non Tender, Non Distended
Musculoskeletal: No Clubbing, No Cyanosis and No Edema
Skin: Warm and Dry; No Rash
Impression/plan:
1. probable Encephalopathy with obtunded state concern for CVA vs infectious cause
History of prior CVAs,�left parietal occipital lobe 09/15/2021 with mild petechial hemorrhage, left subcortical basal ganglia CVA baseline oriented x 1 bedbound
COVID and flu negative, urinalysis negative, CXR negative, afebrile WBC 6.8
- N.p.o.
- Consult Neuro
-IV heparin drip per Neuro Dr machado
-MRI brain
- Consult PT consider speech eval when patient is awake
2. ALEXANDRA on CKD 4
Chronic Serrano catheter present on admission unclear etiology
Creat 2.5/bun 64 baseline appears 1.6
-Hold lisinopril 40 mg daily, torsemide 40 mg daily
-IV NSS 1 L given in ER
- Continue IV NSS 60 cc an hour
3. Dementia with chronic bedbound status
Review goals of care
4. Please see STOCK TRACER note for full details on
History of aspiration pneumonia 12/18/2023
chronic hypoxic respiratory failure on O2 at [facility] however is 100% on room air in ER
HTN
HLD
A-fib�permanent
DM 2
Normocytic anemia
Depression
Chronic lymphedema venous stasis bilateral lower extremities
Insomnia
DVT prophylaxis
DNR per [facility]
[2025-08-28 18:09] LABS: Glucose - Point of Care 141 mg/dl (70-99)
--- NOTE | 2025-08-28 19:01 | PTCARENOTE ---
Pt arrived to the floor from ED in no apparent distress. Pt is non verbal, responsive to verbal stimuli. Unable to give me her name and . Vitals obtained, skin checked and free of open wounds. Heel foams placed and new gown provided. Pt is rigid
and obtunded, Unable to perform NIH due to lack of communication. Neuro chk complete.
--- NOTE | 2025-08-28 19:30 | PTCARENOTE ---
Patient remains obtunded. Unable to complete NIH. Will continue to monitor.
[2025-08-28 20:41] LABS: Hematocrit 34.9 % (37.0-47.0); Hemoglobin 11.3 g/dL (12.0-16.0); Mean Corp Hgb Conc. 32.4 g/dL (33.0-37.0); Mean Corpuscular Volume 84.7 fL (81.0-99.0); Platelet Count 239 10^3/uL (130-400); Red Cell Dist. Width 13.1 % (11.5-14.5)
[2025-08-28 20:58] LABS: APTT 81.4 Sec (23.4-35.0)
[2025-08-28 21:42] LABS: Glucose - Point of Care 134 mg/dl (70-99)
--- NOTE | 2025-08-28 22:00 | PTCARENOTE ---
2145 While performing radha care, HR 140-150s an patient began gagging. Manual BP right arm 142/82. House PROMOTIONS OFFICER aware. Within 10 mins, patient returned to baseline, HR 84-90.
[2025-08-29] VITALS (20 sets, daily range): BP systolic 87–179; BP diastolic 31–120; BMI 26.4
[2025-08-29 00:02] LABS: Glucose - Point of Care 212 mg/dl (70-99)
[2025-08-29 02:51] LABS: APTT 86.9 Sec (23.4-35.0)
[2025-08-29 05:10] LABS: Glucose - Point of Care 153 mg/dl (70-99)
[2025-08-29 08:15] LABS: Hematocrit 33.8 % (37.0-47.0); Hemoglobin 10.9 g/dL (12.0-16.0); Mean Corp Hgb Conc. 32.2 g/dL (33.0-37.0); Mean Corpuscular Volume 84.5 fL (81.0-99.0); Nucleated Red Blood Cells % 0 %; Platelet Count 246 10^3/uL (130-400); Red Cell Dist. Width 13.1 % (11.5-14.5)
[2025-08-29 08:20] LABS: APTT 74.4 Sec (23.4-35.0)
--- NOTE | 2025-08-29 08:25 | PTCARENOTE ---
Patient is rigid and obtunded. Unable to perform NIH. Neuro check complete.
[2025-08-29] MEDS: DESENEX/MITRAZOL/ZEASORB 1 APPLIC TOPICAL ×2 (08:29→22:47)
[2025-08-29 08:36] LABS: ALT (SGPT) 12 U/L (0-35); AST (SGOT) 16 U/L (14-36); Albumin 3.7 g/dl (3.5-5.0); Alkaline Phosphatase 121 U/L (38-126); Blood Urea Nitrogen 47 mg/dl (7-17); Calcium 9.5 mg/dl (8.4-10.2); Carbon Dioxide 20 mmol/L (22-30); Chloride 115 mmol/L (98-107); Estimated Creatinine Clearance 21 ml/min; Glucose 150 mg/dl (70-99); Potassium 4.0 mmol/L (3.5-5.1); Sodium 144 mmol/L (135-145); Total Protein 6.6 g/dl (6.3-8.2); eGFR 24.73
--- NOTE | 2025-08-29 08:42 | PTOTSP ---
ORDERS RECEIVED AND CHART REVIEWED. PER PRIOR ADMISSIONS AND ED CASE MANAGEMENT ASSESSMENT, PATIENT HAS BEEN BEDBOUND AT [facility] FOR 2 YEARS AND REFUSES TO GET OUT OF BED. WILL DISCHARGE FROM [facility].
--- NOTE | 2025-08-29 09:09 | W.PN.NEURO.1 ---
Today's Communication / Plan
-
- MRI head w/o contrast
- Infectious work-up
-Continue eliquis for now.
Check EEG to ensure absence of seizures.
Neuro Assessment/Plan
Assessment
#AMS
#Aphasia
Her lack of speech output could be aphasia or AMS. This could be recrudescence of old stroke symptoms. Differential diagnosis includes Heraclio's paralysis. No seizure activity was noted and AMS isn't clearly confusion and paralysis isn't focal. Her
rigidity suggests either a parkinsonian state or dystonic reaction, but no new meds to cause this is in the history. CTA showed complete occlusion of P3 right SPOOL HAULER, but her presentation is inconsistent with an acute SPOOL HAULER infarct.
Plan
- MRI head w/o contrast
- Infectious work-up
-Continue eliquis for now.
Check EEG to ensure absence of seizures.
Will follow pending results
Subjective/Objective
Subjective Data
Date of Service: August 29, 2025
Objective Data
Vital Signs
Temp Pulse Resp BP Pulse Ox
37.3 C 92 20 179/101 98
08/29/25 07:35 08/29/25 08:07 08/29/25 07:35 08/29/25 08:07 08/29/25 07:35
Lab Results
08/29/25 07:46
08/29/25 07:47
PT 18.2 Sec (11.4-14.6) H 08/28/25 10:28
INR 1.50 08/28/25 10:28
APTT 74.4 Sec (23.4-35.0) H 08/29/25 07:45
Sodium 144 mmol/L (135-145) 08/29/25 07:47
Potassium 4.0 mmol/L (3.5-5.1) 08/29/25 07:47
BUN 47 mg/dl (7-17) H 08/29/25 07:47
Glucose 150 mg/dl (70-99) H 08/29/25 07:47
Calcium 9.5 mg/dl (8.4-10.2) 08/29/25 07:47
Patient Allergies
adhesive tape Allergy (Verified 12/26/21 17:23)
Rash
aspirin Allergy (Verified 12/12/23 14:35)
Anaphylaxis
coconut Allergy (Verified 12/26/21 17:23)
Rash
latex Allergy (Verified 12/26/21 17:23)
Rash
pneumococcal vaccine Allergy (Verified 12/25/21 09:40)
Unknown
vancomycin Allergy (Verified 12/25/21 09:40)
Unknown
Past History
Past History
ED Past Medical History: CHF, CVA, HTN, Hypercholesterolemia, NIDDM, Renal failure (Chronic kidney disease) and Other (Cellulitis, bacteremia, morbid obesity, chronic lower extremity dermatitis, chronic ambulatory dysfunction, right lower extremity
DVT, peripheral neuropathy)
ED Past Surgical History: Other
Social History
Tobacco: Non-smoker
Alcohol: None
Drug: None
Living: correction
Employment: Retired
Family History
Family History: Unable to obtain
Medications
-
Medications:
Generic Name Dose Route Start Last Admin
Trade Name Freq PRN Reason Stop Dose Admin
Acetaminophen 650 mg 08/28/25 16:41
Acetaminophen 650 Mg Rectal Suppository RECTAL 09/25/25 16:40
Q4HPRN PRN
mild pain/PEREZ/temp> 100.4F
Dextrose 12.5 grams 08/28/25 16:41
Dextrose 50% (0.5 Grams/Ml) 50 Ml Syringe IV 09/25/25 16:40
[id number] PRN
hypoglycemia
Protocol
Diltiazem HCl 5 mg 08/28/25 16:41
Diltiazem 25 Mg/5 Ml Vial IV 09/25/25 16:40
Q6HPRN PRN
Hr>120 or SBP>180
Glucagon 1 mg 08/28/25 16:41
Glucagon 1 Mg Vial IM 09/25/25 16:40
PRN PRN
hypoglycemia
Protocol
Heparin Sodium 25,000 units in 250 mls @ 0 mls/hr 08/28/25 13:30 08/28/25 13:42
Heparin 47000 Units/250 Ml IV 250 mls
PER PROTOCOL EMILY Administration
Protocol
Per Protocol
Miconazole Nitrate 0 applic 08/29/25 08:00 08/29/25 08:29
Miconazole Powder Bottle TOPICAL 09/26/25 07:59 1 applic
BID EMILY Administration
Sodium Chloride 0 flush 08/28/25 14:00
Sodium Chloride 0.9% (Flush) Syringe IV 09/25/25 13:59
PER PROTOCOL EMILY
[2025-08-29 09:29] LABS: Glycohemoglobin (HgbA1c) 7.3 % (4.0-5.9)
[2025-08-29 10:05] LABS: HDL Cholesterol 41 mg/dl; LDL Cholesterol, Calculated 81 mg/dl; Very Low Density Lipoprotein 13 mg/dl (0-30)
[2025-08-29 11:06] LABS: Ferritin 331.0 ng/ml (11.1-264.0)
[2025-08-29 11:37] LABS: Folate 4.4 ng/ml (2.76-20); Vitamin B12 690 pg/ml (239-931)
[2025-08-29 12:05] LABS: Glucose - Point of Care 147 mg/dl (70-99)
[2025-08-29] MEDS: CARDIZEM 5 MG IV (13:39)
--- NOTE | 2025-08-29 13:48 | W.PN.HOSP.TC ---
Addendum entered and electronically signed by Espinoza Keating MD 08/29/25 17:51:
Discussed with neurology. Will need to move patient to ICU for cerebell. Neurology will decide based on cerebell to see if antiepileptic needs to be started.
Original Note:
Today's Communication/Plan
-
Monitor vitals
See plan
MRI pending
EEG per neurology
Neurology following, prognosis appears guarded
Called daughter, left voicemail
Check blood culture
on IV hep
Start Zosyn
follow fever curve
Check ABG
Assessment / Plan
Assessment / Plan
General: Other ( rigid extremities)
HEENT: NormoCephalic, Anicteric, [place] Conjunctivae
Respiratory: Clear; No Wheezes, Rales or Rhonchi
Cardiac: S1/S2 and Irregular Rhythm
GI: Soft, Non Tender, Non Distended, Normal Bowel Sounds
Musculoskeletal: No Edema
Neuro: AAOx 0-1
Psych: baseline dementia per NH
Change in mental status could likely be secondary to another CVA
#History of prior CVAs,�left parietal occipital lobe 09/15/2021 with mild petechial hemorrhage, left subcortical basal ganglia CVA baseline oriented x 1 bedbound
COVID and flu negative, urinalysis negative, CXR negative, fever now could be secondary to seizure or aspiration event given her mental status. Check blood culture. Start empiric antibiotic. Unknown allergic reaction to vancomycin. Started on
Zosyn for now
- Allergy to aspirin
- N.p.o. as patient does not respond much. speech eval when more awake
Neurology following, EEG pending
-okay for IV heparin drip per Neuro Dr machado no bolus given patient on Eliquis for A-fib history also DVT unable to swallow due to obtunded state
-MRI brain pending
CT, CTA noted. Severe atherosclerotic plaque. Discussed with neurology, unclear how extensive family wants to go here. Prognosis appears guarded. Called daughter, left voicemail
check ABG
NECK CTA:
1. SEVERE STENOSIS (greater than 70% diameter) in the PROXIMAL RIGHT ICA.
2. 50-70% diameter stenosis in the proximal left ICA.
3. No CTA evidence for stenosis in the cervical segments of the vertebral arteries.
4. Moderate calcific atherosclerotic plaque in the coronary arteries.
5. Severe discogenic degenerative disease at C5/C6.
6. Mild multilevel spinal cord compression and central canal stenosis.
HEAD CTA:
1. Severe atherosclerotic plaque in BOTH INTRACRANIAL INTERNAL CAROTID ARTERIES causing SEVERE STENOSES (greater than 70% diameter).
2. Complete occlusion of the A1 segment of the right anterior cerebral artery.
3. Greater than 70% diameter stenosis in the left intracranial vertebral artery.
4. 50-70% diameter stenosis in the right intracranial vertebral artery.
5. 50-70% diameter stenosis in the basilar artery.
6. COMPLETE OCCLUSION of the P3 segment of the RIGHT POSTERIOR CEREBRAL ARTERY.
7. Chronic transcortical infarcts in the posterior occipital lobes and right parietal lobe.
8. Moderate white matter leukoaraiosis in both cerebral hemispheres.
CXR: No evidence for pneumonia, severe DDD thoracic lumbar spine
#Chronic stenosis bilateral carotid arteries
Severe stenosis> 70% proximal right ICA, left ICA
#ALEXANDRA on CKD 4
Chronic Serrano catheter present on admission unclear etiology
History of Proteus UTI December 2023
Creat 2.5/bun 64 baseline appears 1.6. Creatinine 1.6 was 2023. Unclear if renal function progressively has gotten worse. Will monitor. Creatinine 2.1 today
-Urinalysis negative
-Hold lisinopril 40 mg daily, torsemide 40 mg daily
-IV NSS 1 L given in ER
- Continue IV NSS 60 cc an hour
#Dementia with chronic bedbound status
Baseline oriented x 1
Patient currently obtunded does not respond to name sleeping with mouth open
#History of aspiration pneumonia 12/18/2023
History of reported chronic hypoxic respiratory failure on O2 at [facility]
Will monitor pulse ox
#HTN
BP 162/90
IV Cardizem 5 mg scheduled every 6 h prn if HR >120 or SBP >180
hydralazine prn
#HLD
Was on atorvastatin
#A-fib�permanent
Unable to take due to being obtunded- Cardizem 120 mg daily, Eliquis 5 mg twice daily
- IV Cardizem 5 mg scheduled every 6 h prn if HR >120 or SBP >180
-Will start IV heparin drip no bolus as patient is obtunded unable to take oral Eliquis
EK bpm, A-fib QTc B513 MS chronic nonspecific T wave abnormality anterolateral leads
#DM 2
Accu-Cheks with SSI,
Hypoglycemia coverage
#Normocytic anemia
Hgb 10.9, MCV 85.1-baseline appears 11.3
#Depression
Prior Zoloft
#Chronic lymphedema venous stasis bilateral lower extremities
Hold torsemide 40 mg daily
#Insomnia
Hold melatonin 3 mg at bedtime
DVT prophylaxis
IV heparin drip since patient obtunded unable to take oral Eliquis
DNR per [facility]
Called daughter 08/29, left voicemail
I spent a total of 52 minutes with the patient or on the floor. More than 50% of this time involved counseling and coordination of care.
Anticipated Discharge: > 48 hours
Subjective/Interval History
-
Date of Service: August 29, 2025
Objective Data
-
Labs:
Laboratory Results
08/29/25 08/29/25 08/29/25
02:32 07:45 07:46
WBC 8.2
Hgb 10.9 L
Hct 33.8 L
Plt Count 246
APTT 86.9 H 74.4 H
Sodium
Potassium
Chloride
Carbon Dioxide
BUN
Creatinine
Glucose
Calcium
Total Bilirubin
AST
ALT
Alkaline Phosphatase
08/29/25
07:47
WBC
Hgb
Hct
Plt Count
APTT
Sodium 144
Potassium 4.0
Chloride 115 H
Carbon Dioxide 20 L
BUN 47 H
Creatinine 2.1 H
Glucose 150 H
Calcium 9.5
Total Bilirubin 0.3
AST 16
ALT 12
Alkaline Phosphatase 121
Vital Signs:
Vital Signs
Temp Pulse Resp BP Pulse Ox
100.8 F H 460 20 135/100 95
08/29/25 12:35 08/29/25 13:39 08/29/25 12:35 08/29/25 13:32 08/29/25 12:35
I&O
08/28/25 08/29/25 08/30/25
06:59 06:59 06:59
Intake Total 960 / 960
Output Total 300 / 300
Balance 660 / 660
[2025-08-29 14:36] LABS: B.E. -2.9 mmol/L; HCO3 19.9 mmol/L (21-28); O2 Saturation % 99.3 % (94-98); PCO2 28 mmHg (32-35); PO2 122 mmHg (83-108)
[2025-08-29 15:00] LABS: Ammonia < 9 umol/L (9-30)
[2025-08-29] MEDS: ZOSYN 50 IV ×2 (15:03→19:51)
[2025-08-29] MEDS: NSS 1000 IV (15:03)
--- NOTE | 2025-08-29 17:14 | CM ---
Pt is being transferred to ICU for RVR.
Pt is LTC resident at [facility]
Plan: DC back to [facility]
[2025-08-29] MEDS: CARDIZEM 2.5 MG IV (17:16)
[2025-08-29] MEDS: HEPARIN 25000 UNITS/250 ML IV (18:26)
--- NOTE | 2025-08-29 18:32 | PTCARENOTE ---
pt received from 4th floor, agitated, rigid, does not follow any commands, does not open eyes to name. see vitals as charted. pt afib on monitor, room air. skin intact, protective foams to heels and sacrum. purewick in placed, full chg provided.
heparin gtt @800units/hr and ivf continue per order. ivs both flush and intact. all safety precautions in place. bed alarm on and functioning.
[2025-08-29 18:37] LABS: Glucose - Point of Care 176 mg/dl (70-99)
--- NOTE | 2025-08-29 18:43 | PTCARENOTE ---
Addendum entered by Bertha Richard RN 08/29/25 18:47:
Dr. Flood aware unable to complete NIH.
Original Note:
pt hr up to 160s- Dr. Flood and Shahab HERNANDEZ aware, pt remains agitated. pt placed on cerebell as per order, 0% seizure threshold.
[2025-08-29] MEDS: KEPPRA 35 MG IV (19:49)
--- NOTE | 2025-08-29 21:08 | PTCARENOTE ---
Pt received at 19:00. Pt yelling 'ow' in response to any touch, not following commands, RN attempt to open pts eyes to check pupils--pt forces them shut. Agitated and rigid with minimal stimuli. Ceribell in place, 37-53%. Keppra 3,500 mg given at
19:49, seizure burden at 20:00 3-7%, pt appears less rigid. Dr Flood aware that NIH is unobtainable d/t pts inability to cooperate, neuro checks ordered q4hr. RUE and RLE with good strength, LUE and LLE with poor strength. Consistently moving RUE
and RLE. Remains in afib, up to 180s when agitated, 90s-120s when calm. BP difficult to obtain initially, pt rigid with any stimuli, attempted manual BP, also difficult to obtain as pt becomes agitated and rigid with stimuli. SBP now 150s-160s.
Respirations shallow, clear/diminished. Oral care provided--pt increasingly agitated and grabbing at staff and suction tubing. Pt remains on RA, pulse ox 97-98%. +bowel sounds, no BM, purewick in place, 100ml of yellow urine, bladder scanned d/t
restlessness/agitation--2ml. Plan of care continues, pt pulled up in bed and turned, safe environment maintained.
[2025-08-29 22:16] LABS: Blood Urea Nitrogen 42 mg/dl (7-17); Calcium 9.8 mg/dl (8.4-10.2); Carbon Dioxide 18 mmol/L (22-30); Chloride 116 mmol/L (98-107); Estimated Creatinine Clearance 19 ml/min; Magnesium 2.1 mg/dl (1.6-2.3); Potassium 4.1 mmol/L (3.5-5.1); Sodium 144 mmol/L (135-145); eGFR 23.38
[2025-08-29 22:26] LABS: Glucose 223 mg/dl (70-99)
[2025-08-29 23:11] LABS: Glucose - Point of Care 247 mg/dl (70-99)
[2025-08-29] MEDS: NOVOLOG FLEXPEN-MODERATE RESISTANCE 3 UNITS SC (23:58)
[2025-08-30] VITALS (24 sets, daily range): BP systolic 93–149; BP diastolic 52–115; BMI 26.3
[2025-08-30 01:10] LABS: Glucose - Point of Care 209 mg/dl (70-99)
[2025-08-30] MEDS: ZOSYN 50 IV ×3 (02:55→16:29)
[2025-08-30 03:18] LABS: Glucose - Point of Care 132 mg/dl (70-99)
--- NOTE | 2025-08-30 03:34 | PTCARENOTE ---
Pt continues to be agitated when care provided. At rest HR 80s-100s. Ceribell with seizure burden = 0%. Safe environment maintained.
[2025-08-30 04:16] LABS: Hematocrit 38.7 % (37.0-47.0); Hemoglobin 12.6 g/dL (12.0-16.0); Mean Corp Hgb Conc. 32.6 g/dL (33.0-37.0); Mean Corpuscular Volume 86.0 fL (81.0-99.0); Nucleated Red Blood Cells % 0 %; Platelet Count 244 10^3/uL (130-400); Red Cell Dist. Width 13.4 % (11.5-14.5)
[2025-08-30 04:27] LABS: APTT 48.7 Sec (23.4-35.0)
[2025-08-30 04:49] LABS: ALT (SGPT) 14 U/L (0-35); AST (SGOT) 24 U/L (14-36); Albumin 4.1 g/dl (3.5-5.0); Alkaline Phosphatase 124 U/L (38-126); Blood Urea Nitrogen 41 mg/dl (7-17); Calcium 10.2 mg/dl (8.4-10.2); Carbon Dioxide 20 mmol/L (22-30); Chloride 118 mmol/L (98-107); Estimated Creatinine Clearance 19 ml/min; Glucose 128 mg/dl (70-99); Magnesium 2.2 mg/dl (1.6-2.3); Potassium 4.9 mmol/L (3.5-5.1); Sodium 149 mmol/L (135-145); Total Protein 7.2 g/dl (6.3-8.2); eGFR 23.38
[2025-08-30 05:47] LABS: Glucose - Point of Care 152 mg/dl (70-99)
[2025-08-30] MEDS: NOVOLOG FLEXPEN-MODERATE RESISTANCE 1 UNITS SC ×2 (06:36→17:59)
--- NOTE | 2025-08-30 07:38 | W.RAPID.EEG ---
Rapid EEG
-
Procedure Date: 08/29/25
Patient Status: Inpatient
Results:
Clinical Correlation/Impression:
> 20% Of the Last 60 Minutes indicating Electrographic Status Epilepticus
Recording Information:
Diagnostic Recording Time: 12:48:00 (768 minutes)
Recording 1: [email or web address]
Start Time: Aug 29, 2025 18:40 PM End Time: Aug 30, 2025 07:28 AM
Recording Technique: This EEG was obtained using a 10 lead, 8 channel system positioned circumferentially without any parasagittal coverage (rapid EEG). Computer selected EEG is reviewed as well as background features and all clinically significant
events. Clarity algorithm utilized and implemented to provide analysis of underlying activity and seizure detection used to facilitate reading. ICD-10 Code RI16D01
Clinical History: DecemberWITCH is a 70 year old Undifferentiated AMS patient undergoing EEG to screen for non-convulsive status epilepticus.
Findings
> 20% Of the Last 60 Minutes indicating Electrographic Status Epilepticus
--- NOTE | 2025-08-30 08:01 | CON.INTV ---
Consultation
Consultation Request
Date/Time Consultation Requested: 08/29/2025
Date/Time Consultation Performed: 08/30/2025
Requesting Provider: Dr. Keating
Performing Provider: Dr. Flood
Reason for Consultation: Altered mental status
Medical History
-
Chief Complaint: Altered mental status
History of Present Illness:
Ms. Fierro is a 70-year-old female with a past medical history of CVA (left parietal occipital lobe 2023, left subcortical basal ganglia), baseline dementia oriented x 1, bilateral blindness at baseline, asthma, hypertension, hyperlipidemia,
HFpEF, permanent A-fib on Eliquis, CKD 4, insulin-dependent diabetic, chronic lymphedema, chronic hypoxic respiratory failure presenting from [facility] for mental status changes. According to report given to ED, her last known normal
was 10pm when she went to sleep. She resides at a facility and staff checked on her on the morning of presentation at 9:45am. She was rigid in all extremities. In addition she was found with her mouth open and eyes closed which is a similar
presentation in 2023 which at that time workup found stroke. She was not responding and thus EMS was called. At baseline, she can speak and verbalize and is AOx1 and is blind. On presentation to the ED she didn't follow any commands. She was very
rigid on exam. On presentation labs showed a white count of 6.8 hemoglobin 10.9, APTT 34.2 INR 1.5, ABG pH 7.46, pCO2 28, pO2 122, HCO3 20, BUN 64, creatinine 2.5. In the ED CT head showed no acute bleeds, and multiple known areas of chronic
infarcts. CTA was notable for severe bilateral carotid artery stenosis, severe atherosclerotic plaque in both intracranial internal carotid arteries, occlusion of A1 segment of ASHLEY on the right, occlusion of P3 segment on TAR POT WORKER right, stenosis of
bilateral vertebral arteries and basilar artery. Chest x-ray in the ED showed no evidence of pneumonia. She was not given aspirin due to aspirin allergy and she was transitioned to heparin drip in place of her Eliquis. On the afternoon of 08/29
patient spiked a fever up to 100.8 and Zosyn was started. Blood gas on the day of presentation notable for pH of 7.46 pCO2 28 pO2 122 HCO3 19.9. Other labs notable for ammonia less than 9, TSH 1.45, unremarkable UA, there was concern for seizure
activity the patient was transferred to ICU for seizure monitoring with Ceribell which was positive and patient was started on Keppra to decrease seizure activity. This morning when I saw patient she was still altered, was able to respond to 1 or 2
questions about pain, notable for echolalia, and still rigid on her left side. Seizure burden per Ceribell (10%) was diminished. Patient was afebrile with stable vital signs, WBC up to 10.4, NA 149, K4.9, CL 118, HCO3 20, BUN 41, creatinine 2.2.
Past Medical History
Past Medical History: Arrhythmias (Permanent atrial fibrillation), Asthma, CHF (HFpEF last echo 2023 EF 60-65), CVA, HTN, Hypercholesterolemia, IDDM, Renal Failure (CKD 4) and Other (Chronic lymphedema, bilateral carotic stenosis greater than 70%,
chronic hypoxic respiratory failure on home O2)
Social History
Tobacco: Non-smoker
Alcohol: None
Drug: None
Living: [facility]
Family History
Family History: Reviewed & Not Pertinent
Allergies / Home Medications
Allergies
Allergy/AdvReac Type Severity Reaction Status Date / Time
adhesive tape Allergy Rash Verified 12/26/21 17:23
aspirin Allergy Anaphylaxis Verified 12/12/23 14:35
coconut Allergy Rash Verified 12/26/21 17:23
latex Allergy Rash Verified 12/26/21 17:23
pneumococcal vaccine Allergy Unknown Verified 12/25/21 09:40
vancomycin Allergy Unknown Verified 12/25/21 09:40
Home Medications
�Medication �Instructions �Recorded �Confirmed �Last Taken �Type
apixaban 5 mg tablet (Eliquis) 5 mg PO BID cerebral infarction 08/18/21 08/28/25 08/27/25 History
Held on 12/17/23.
Instructions: Resume on
12/19/23. can start on 12/19
polyethylene glycol 3350 17 gram 17 g PO DAILY PRN constipation 09/15/21 08/28/25 01/07/25 History
oral powder packet
acetaminophen 325 mg tablet 650 mg PO Q6HPRN PRN mild pain, 01/23/22 08/28/25 02/17/25 History
temp>100.4
atorvastatin 20 mg tablet 40 mg PO HS High cholesterol 01/23/22 08/28/25 08/27/25 History
bisacodyl 10 mg rectal suppository 10 mg IA DAILYPRN PRN if no bm 01/23/22 08/28/25 Unknown History
(OneLAX Bisacodyl) aftr mom
insulin aspart U-100 100 unit/mL 0 - 10 sliding scale dose SC AC 08/26/22 08/28/25 08/27/25 History
(3 mL) subcutaneous pen (Novolog Diabetes
FlexPen U-100 Insulin aspart)
docusate sodium 100 mg capsule 100 mg PO BID Constipation 12/12/23 08/28/25 08/27/25 History
insulin aspart U-100 100 unit/mL 6 units SC AC Diabetes 12/12/23 08/28/25 08/27/25 History
(3 mL) subcutaneous pen (Novolog
FlexPen U-100 Insulin aspart)
insulin glargine 100 unit/mL (3 10 unit SC HS Diabetes 12/12/23 08/28/25 08/27/25 History
mL) subcutaneous pen (Lantus
Solostar U-100 Insulin)
isosorbide mononitrate 60 mg 60 mg PO QPM Heart Condition 12/12/23 08/28/25 08/27/25 History
tablet,extended release 24 hr
sennosides 8.6 mg-docusate sodium 2 tab-cap PO HS Constipation 12/12/23 08/28/25 08/27/25 History
50 mg tablet (Senna-S)
torsemide 40 mg tablet 40 mg PO DAILY Fluid 12/12/23 08/28/25 08/27/25 History
Retention/Swelling
diltiazem HCl 120 mg 120 mg PO DAILY #1 cap 12/17/23 08/28/25 08/27/25 Rx
capsule,extended release 24 hr
emollient combination no.119 1 applic topical DAILY b/l L.E. 08/28/25 08/28/25 08/28/25 History
(Eucerin Advanced [employer]air topical
cream)
ezetimibe 10 mg tablet 10 mg PO DAILY High Cholesterol 08/28/25 08/28/25 08/27/25 History
glucagon 1 mg/0.2 mL subcutaneous 1 mg SC DAILYPRN PRN hypoglycemia, 08/28/25 08/28/25 Unknown History
syringe ([employer] PFS 1-Pack) bs<60
hydroxyzine HCl 25 mg tablet 25 mg PO QID Neurological Condition 08/28/25 08/28/25 08/27/25 History
lisinopril 40 mg tablet 40 mg PO DAILY Blood Pressure 08/28/25 08/28/25 08/27/25 History
melatonin 3 mg tablet 3 mg PO HS Sleep 08/28/25 08/28/25 08/27/25 History
ondansetron HCl 4 mg tablet 4 mg PO Q8H PRN vomiting, nausea 08/28/25 08/28/25 11/07/24 History
sertraline 25 mg tablet 25 mg PO DAILY Mental 08/28/25 08/28/25 08/27/25 History
Health/Anxiety
sorbitol 70 % solution 30 ml PO DAILYPRN PRN constipation 08/28/25 08/28/25 03/20/25 History
Review of Systems
-
Unable to Obtain full review of systems at this time due to: Dementia, Acuity and Patient Non Verbal
History Source: Other
All other systems: Negative unless noted
Vitals / Labs / Diagnostic Testing
Vital Signs
Temp Pulse Resp BP Pulse Ox
99.8 F 125 15 117/95 98
08/30/25 03:14 08/30/25 06:15 08/30/25 06:15 08/30/25 06:00 08/30/25 06:15
Lab Data
08/30/25 03:52
08/30/25 03:51
Laboratory Results
08/29/25 08/29/25 08/30/25
07:45 14:16 03:51
APTT 74.4 H 48.7 H
pH 7.46 H
pCO2 28 L
pO2 122 H
HCO3 19.9 L
O2 Delivery Level Not Reportable
Microbiology
08/28/25 10:28 Nasal Swab Influenza Types A & B (MELE) - Final
Negative for Influenza A & B, NAAT
Negative results must be combined with clinical observations
and patient history.
Nucleic Acid Amplification test (NAAT)performed on the
Fort[employer] platform.
Diagnostic Testing:
Physical Exam
-
HEENT: Normocephalic and Anicteric
Cardiovascular: S1/S2 and Regular Rhythm
Respiratory: Clear and Non-Labored Respirations
GI: Soft, Non Distended and Non Tender
Neurology: Other (Somnolent, echolalia, minimally responsive to voice commands, negative Babinski bilaterally, unable to assess reflexes, unable to assess cranial nerves, pupils equal and reactive to light)
Skin: Warm and Dry
Assessment
-
Ms. Fierro is a 70-year-old female with a past medical history of CVA (left parietal occipital lobe 2023, left subcortical basal ganglia), baseline dementia oriented x 1, bilateral blindness at baseline, asthma, hypertension, hyperlipidemia,
HFpEF, permanent A-fib on Eliquis, CKD 4, insulin-dependent diabetes, chronic lymphedema, chronic hypoxic respiratory failure presenting from [facility] for mental status changes.
#Neurologic
Pain: Unable to obtain
Analgesia: Tylenol, rectal
Mentation: At baseline, AAO x 1
Activity: Bedrest
Altered mental status
DDx CVA, seizures, encephalitis
Hx parietal occipital CVA, subcortical basal ganglia CVA
CT head negative for bleed CTA notable for multiple chronic CVAs, bilateral carotid stenosis, occlusion of R ASHLEY, R TAR POT WORKER
Ceribell with seizure activity, decreased after Keppra
Ammonia less than 9
TSH 1.4
Neurology following
-Continue Keppra 500 every 12
-Add lacosamide 100 every 12
-MRI pending
-Blood cultures pending
-Continue heparin drip
#Cardiovascular
Maintain MAP> 65
Pressors: None
QTc: 530
Essential hypertension
Hold home antihypertensives
HFpEF
Last echo 2023 EF 60�65
Hold torsemide
Permanent A-fib
On Eliquis at home
On heparin drip
#Respiratory
Chest x-ray 08/28 with no cardiopulmonary process
O2 requirements: None
Home O2: Unable to obtain
Blood gas: 7.46/28/122/20 (08/29)
Hx chronic hypoxemic respiratory failure?
No current requirements continue to monitor
Hx asthma
Continue to monitor
#Gastrointestinal
Diet: N.p.o.
Stooling regimen: Unable to obtain
Tubes: None
Antiemetics: None
GI PPx: None
Hyperlipidemia
Hold p.o. statin
#Renal
Serrano present: Yes
Urine output: About 1 L overnight
IVF: Normal saline rate 60 mL/h
Electrolytes: K>4 Mg>2
Na 149
K 4.9
Mag 2.2
Hypernatremia
Likely due to low p.o. intake
Continue IV fluids
Continue to monitor
Acute on chronic kidney injury, resolved
CKD stage IV:
Baseline 1.9-2.2?
Currently 2.2 presented 2.5
Continue IV fluids
Continue to monitor
#Infectious
WBC 6.8-> 7.8-> 8.2-> 10.4
ABX: Zosyn started 08/29
Microbiology: Blood cultures collected 08/28, pending
Antipyretics: Acetaminophen, rectal
UA negative
Chest x-ray negative for cardiopulmonary process
Fever up to 100.8 afternoon 08/29
Continue to monitor temperature curve
#Hematologic
DVT PPx: heparin drip
Hemoglobin: 12.6
PT
INR
PTT 48
#Endocrine
Maintain euglycemia with goal BG 140�180
Insulin-dependent diabetes
A1c 7.312/
-Moderate insulin sliding scale
-Continue to monitor
#Surgical
None
#Access
Central:
None
Peripheral:
Left arm 20-gauge
Left hand 22-gauge
Right arm 22-gauge
CODE STATUS: DNR
[2025-08-30] MEDS: DESENEX/MITRAZOL/ZEASORB 1 APPLIC TOPICAL ×2 (08:13→19:32)
[2025-08-30] MEDS: KEPPRA 500 MG IV ×2 (09:25→19:32)
--- NOTE | 2025-08-30 09:49 | W.PN.NEURO.1 ---
Addendum entered and electronically signed by David Douglas MD 08/30/25 12:34:
Studies reviewed.
I have personally examined the patient. I reviewed and agree with the PHOTOGRAPHIC PROCESS WORKER's Note.
My addenda:
Awake, minimally interactive. No acute distress.
Speech perseverative, single word.
Follows no requests. No tremor.
Extra-ocular movements grossly intact.
Facial movements full and symmetric. Hearing intact to normal conversational volume.
Normal UE movements bilaterally. Some rhythmicity to right lower extremity movement.
Neck: full ROM.
Chest: no dyspnea
Heart: no JVD
Ext: (-) Clubbing, (-) Cyanosis, (-) Edema
IMPRESSIONS/RECOMMENDATIONS:
Abrupt onset of change in mental status in a patient with prior history of dementia and cortical blindness.
EEG on 08/29/2025 indicated status epilepticus treated with levetiracetam leading to improvement in changes by continuous EEG monitoring
As the patient has not had an improvement clinically to the suggested prior baseline of function, add lacosamide 200 mg now then 100 mg every 12 hours
Recheck EEG
Consider low-dose benzodiazepine
Will continue to follow patient.
Original Note:
Today's Communication / Plan
-
-MRI head with and w/o contrast when able
-Infectious work-up
-Continue eliquis for now.
-continue Levetiracetam 500 mg IV q 12 (unable to increase due to renal function), add lacosamide 100 mg IV q 12
-continue EEG to ensure absence of seizures.
Neuro Assessment/Plan
Assessment
#AMS
#Aphasia
Her lack of speech output could be aphasia or AMS. This could be recrudescence of old stroke symptoms. Differential diagnosis seizure given EEG showed status epilepticus. Her rigidity suggests either a parkinsonian state or dystonic reaction, but
no new medications to cause this is in the history. CTA showed complete occlusion of P3 right [employer], but her presentation is inconsistent with an acute [employer] infarct.
Plan
-MRI head with and w/o contrast when able
-Infectious work-up
-Continue eliquis for now.
-continue Levetiracetam 500 mg IV q 12 (unable to increase due to renal function), add lacosamide 100 mg IV q 12
-continue EEG to ensure absence of seizures.
Subjective/Objective
Subjective Data
Date of Service: August 30, 2025
EEG showing status epilepticus, loaded with Levetiracetam and started on 500 mg IV BID patient minimally responsive repeating
Objective Data
Vital Signs
Temp Pulse Resp BP Pulse Ox
98.1 F 90 16 107/79 96
08/30/25 08:00 08/30/25 09:15 08/30/25 09:15 08/30/25 09:00 08/30/25 09:15
Lab Results
08/30/25 03:52
08/30/25 03:51
PT 18.2 Sec (11.4-14.6) H 08/28/25 10:28
INR 1.50 08/28/25 10:28
APTT 48.7 Sec (23.4-35.0) H 08/30/25 03:51
Sodium 149 mmol/L (135-145) H 08/30/25 03:51
Potassium 4.9 mmol/L (3.5-5.1) 08/30/25 03:51
BUN 41 mg/dl (7-17) H 08/30/25 03:51
Glucose 128 mg/dl (70-99) H 08/30/25 03:51
Calcium 10.2 mg/dl (8.4-10.2) 08/30/25 03:51
Phosphorus 3.7 mg/dl (2.5-4.5) 08/29/25 21:41
LDL Cholesterol, Calc Cancelled 08/29/25 09:22
Vitamin B12 690 pg/ml (808-845) 08/29/25 07:47
Patient Allergies
adhesive tape Allergy (Verified 12/26/21 17:23)
Rash
aspirin Allergy (Verified 12/12/23 14:35)
Anaphylaxis
coconut Allergy (Verified 12/26/21 17:23)
Rash
latex Allergy (Verified 12/26/21 17:23)
Rash
pneumococcal vaccine Allergy (Verified 12/25/21 09:40)
Unknown
vancomycin Allergy (Verified 12/25/21 09:40)
Unknown
Physical Exam
-
physical exam limited, patient minimally responsive and perseverating '
General: Appears Chronically Ill and Older than Stated Age
Psych: Negative Intact Judgement/Insight
Extended Neurological Exam
Attention Span & Concentration: Closes Eyes after Stimulation
Speech: Severely Reduced Output
Data Reviewed
-
CT-A: Report Reviewed and Image Reviewed
CT-Perfusion: Report Reviewed and Image Reviewed
CT Head: Report Reviewed and Image Reviewed
MRI Head: Ordered
EEG: Report Reviewed
Medical Test Reports: Report Reviewed
Labs: Report Reviewed
Reviewed with: Physician
Old Records: Summarized
--- NOTE | 2025-08-30 09:52 | W.PN.NEURO.1 ---
Neuro Assessment/Plan
Assessment
#AMS
#Aphasia
Her lack of speech output could be aphasia or AMS. This could be recrudescence of old stroke symptoms. Differential diagnosis includes Heraclio's paralysis. No seizure activity was noted and AMS isn't clearly confusion and paralysis isn't focal. Her
rigidity suggests either a parkinsonian state or dystonic reaction, but no new meds to cause this is in the history. CTA showed complete occlusion of P3 right [employer], but her presentation is inconsistent with an acute [employer] infarct.
Plan
- MRI head w/o contrast
- Infectious work-up
-Continue eliquis for now.
Check EEG to ensure absence of seizures.
Will follow pending results
Subjective/Objective
Subjective Data
Date of Service: August 30, 2025
Objective Data
Vital Signs
Temp Pulse Resp BP Pulse Ox
36.7 C 90 16 107/79 96
08/30/25 08:00 08/30/25 09:15 08/30/25 09:15 08/30/25 09:00 08/30/25 09:15
Lab Results
08/30/25 03:52
08/30/25 03:51
PT 18.2 Sec (11.4-14.6) H 08/28/25 10:28
INR 1.50 08/28/25 10:28
APTT 48.7 Sec (23.4-35.0) H 08/30/25 03:51
Sodium 149 mmol/L (135-145) H 08/30/25 03:51
Potassium 4.9 mmol/L (3.5-5.1) 08/30/25 03:51
BUN 41 mg/dl (7-17) H 08/30/25 03:51
Glucose 128 mg/dl (70-99) H 08/30/25 03:51
Calcium 10.2 mg/dl (8.4-10.2) 08/30/25 03:51
Phosphorus 3.7 mg/dl (2.5-4.5) 08/29/25 21:41
LDL Cholesterol, Calc Cancelled 08/29/25 09:22
Vitamin B12 690 pg/ml (989-643) 08/29/25 07:47
Patient Allergies
adhesive tape Allergy (Verified 12/26/21 17:23)
Rash
aspirin Allergy (Verified 12/12/23 14:35)
Anaphylaxis
coconut Allergy (Verified 12/26/21 17:23)
Rash
latex Allergy (Verified 12/26/21 17:23)
Rash
pneumococcal vaccine Allergy (Verified 12/25/21 09:40)
Unknown
vancomycin Allergy (Verified 12/25/21 09:40)
Unknown
--- NOTE | 2025-08-30 10:41 | CM ---
CM following for discharge. Pt is a LTC resident at [facility] and will return to [facility] when medically cleared.
[facility] Report:
[facility] [phone] or [phone]
[2025-08-30] MEDS: VIMPAT 200 MG IV (11:24)
--- NOTE | 2025-08-30 12:00 | PTCARENOTE ---
Pt restless. Nonverbal. Ceribell d/c'd. Currently on 1hr EEG. Afib HR 90s-110. Remains on Heparin gtt. Incontinent of urine. Purewick in place. All other assessments unchanged.
[2025-08-30 12:01] LABS: Glucose - Point of Care 143 mg/dl (70-99)
[2025-08-30 12:46] LABS: APTT 101.4 Sec (23.4-35.0)
[2025-08-30] MEDS: NOVOLOG FLEXPEN-MODERATE RESISTANCE SC (12:47)
--- NOTE | 2025-08-30 13:42 | W.PN.HOSP.TC ---
Today's Communication/Plan
-
Monitor vital signs see plan
Continue with antiepileptic per neurology
MRI pending
bladder scan
Monitor mental status closely
Discussed with daughter
Assessment / Plan
Assessment / Plan
General: Other ( rigid extremities)
HEENT: NormoCephalic, Anicteric, [place] Conjunctivae
Respiratory: Clear; No Wheezes, Rales or Rhonchi
Cardiac: S1/S2 and Irregular Rhythm
GI: Soft, Non Tender, Non Distended, Normal Bowel Sounds
Musculoskeletal: No Edema
Neuro: AAOx 0-1
Psych: baseline dementia per NH
Change in mental status could likely be secondary to another CVA
Also cannot rule out seizure
#History of prior CVAs,�left parietal occipital lobe 09/15/2021 with mild petechial hemorrhage, left subcortical basal ganglia CVA baseline oriented x 1 bedbound
COVID and flu negative, urinalysis negative, CXR negative, fever now could be secondary to seizure or aspiration event given her mental status. Check blood culture. Start empiric antibiotic. Unknown allergic reaction to vancomycin. Started on
Zosyn for now
- Allergy to aspirin
- N.p.o. as patient does not respond much. speech eval when more awake
Neurology following, was transferred to ICU 08/29 for cerebell. EEG indicated status epilepticus. Now on Keppra, Vimpat.
-okay for IV heparin drip per Neuro Dr machado no bolus given patient on Eliquis for A-fib history also DVT unable to swallow due to obtunded state
-MRI brain pending
CT, CTA noted. Severe atherosclerotic plaque. Discussed with neurology, unclear how extensive family wants to go here. Prognosis appears guarded. Called daughter, left voicemail
ABG without hypercarbia
NECK CTA:
1. SEVERE STENOSIS (greater than 70% diameter) in the PROXIMAL RIGHT ICA.
2. 50-70% diameter stenosis in the proximal left ICA.
3. No CTA evidence for stenosis in the cervical segments of the vertebral arteries.
4. Moderate calcific atherosclerotic plaque in the coronary arteries.
5. Severe discogenic degenerative disease at C5/C6.
6. Mild multilevel spinal cord compression and central canal stenosis.
HEAD CTA:
1. Severe atherosclerotic plaque in BOTH INTRACRANIAL INTERNAL CAROTID ARTERIES causing SEVERE STENOSES (greater than 70% diameter).
2. Complete occlusion of the A1 segment of the right anterior cerebral artery.
3. Greater than 70% diameter stenosis in the left intracranial vertebral artery.
4. 50-70% diameter stenosis in the right intracranial vertebral artery.
5. 50-70% diameter stenosis in the basilar artery.
6. COMPLETE OCCLUSION of the P3 segment of the RIGHT POSTERIOR CEREBRAL ARTERY.
7. Chronic transcortical infarcts in the posterior occipital lobes and right parietal lobe.
8. Moderate white matter leukoaraiosis in both cerebral hemispheres.
CXR: No evidence for pneumonia, severe DDD thoracic lumbar spine
#Chronic stenosis bilateral carotid arteries
Severe stenosis> 70% proximal right ICA, left ICA
#ALEXANDRA on CKD 4
History of Proteus UTI December 2023
Creat 2.5/bun 64 baseline appears 1.6. Creatinine 1.6 was 2023. Unclear if renal function progressively has gotten worse. Will monitor. Creatinine 2.1 today
-Urinalysis negative
-Hold lisinopril 40 mg daily, torsemide 40 mg daily
fever 1215
will need to r/o infection
ua neg; xray doesnt suggest PNA
could have aspiration event given lethargy or could be secondary to seizure
Blood culture NGTD
cw zosyn for now; unknown allergy to vanc
Hypernatremia
Repeat sodium later today and if is still high then start D5 water
#Dementia with chronic bedbound status
Baseline oriented x 1 however per [facility] does get her needs known
Patient currently obtunded does not respond to name
#History of aspiration pneumonia 12/18/2023
History of reported chronic hypoxic respiratory failure on O2 at [facility]
Will monitor pulse ox
#HTN
hydralazine prn
#HLD
Was on atorvastatin
#A-fib�permanent
Unable to take due to being obtunded- Cardizem 120 mg daily, Eliquis 5 mg twice daily
- IV Cardizem 5 mg scheduled every 6 h prn if HR >120
cw IV hep
EK bpm, A-fib QTc B513 MS chronic nonspecific T wave abnormality anterolateral leads
#DM 2
Accu-Cheks with SSI,
Hypoglycemia coverage
#Normocytic anemia
Hgb 10.9, MCV 85.1-baseline appears 11.3
#Depression
Prior Zoloft
#Chronic lymphedema venous stasis bilateral lower extremities
Hold torsemide 40 mg daily
#Insomnia
Hold melatonin 3 mg at bedtime
DVT prophylaxis
IV heparin drip since patient obtunded unable to take oral Eliquis
DNR per [facility]
Called daughter 15, left voicemail
Discussed with daughter 16; discussed hospital course along with poor prognosis if symptoms do not improve. She does have understanding of patient's complex medical illness
Total Critical Care Time__43___ minutes. I was immediately available to the patient and staff. I personally examined, reviewed labs, diagnostic images/reports, interpretations, treatment plans, discussed patient care with other providers and
family or caregivers (if patient is unable to make decisions), entered orders as appropriate and documented the medical record.
Anticipated Discharge: > 48 hours
Subjective/Interval History
-
Date of Service: August 30, 2025
Not much responsive
Objective Data
-
Labs:
Laboratory Results
08/30/25 08/30/25 08/30/25
03:51 03:52 12:26
WBC 10.4
Hgb 12.6
Hct 38.7
Plt Count 244
APTT 48.7 H 101.4 H
Sodium 149 H
Potassium 4.9
Chloride 118 H
Carbon Dioxide 20 L
BUN 41 H
Creatinine 2.2 H
Glucose 128 H
Calcium 10.2
Total Bilirubin 0.6
AST 24
ALT 14
Alkaline Phosphatase 124
08/30/25
18:30
WBC
Hgb
Hct
Plt Count
APTT Pending
Sodium
Potassium
Chloride
Carbon Dioxide
BUN
Creatinine
Glucose
Calcium
Total Bilirubin
AST
ALT
Alkaline Phosphatase
Vital Signs:
Vital Signs
Temp Pulse Resp BP Pulse Ox
98.8 F 87 18 132/52 94
08/30/25 12:02 08/30/25 11:45 08/30/25 11:45 08/30/25 11:00 08/30/25 11:45
I&O
08/29/25 08/30/25 08/31/25
06:59 06:59 06:59
Intake Total 960 / 960 816 / 886 300 / 300
Output Total 300 / 300 1050 / 1050 250 / 250
Balance 660 / 660 -234 / -164 50 / 50
--- NOTE | 2025-08-30 14:08 | EEG.RPT ---
Electroencephalogram Report
Recording
Date of EE08/30/25
Type of EEG: Routine
Length of EEG recordin minutes
Done with Video Recording: Yes
Patient Status: Inpatient
Recording Conditions: Awake and Drowsy
Hyperventilation Performed: No
Photic Stimulation Performed: Yes
Report
GREATER THAN 1 HOUR REPORT
GREATER THAN 1 HOUR EEG INTERPRETATION:
Moderately abnormal EEG for age in wakefulness through drowsiness due to frontally predominant generalizing discharges and generalized slowing.
CLINICAL CORRELATION:
This study was suggestive of bifrontal cortical dysfunction in drowsiness. No epileptiform activity was demonstrated. Clinical correlation is advised.
METHODS:
A 21 channel digitized electroencephalogram (EEG) was performed at the bedside in the intensive care unit. The 10/20 international system of electrode placement was used with ECG and lateral/vertical eye movements recorded. Video was recorded.
Persyst quantitative EEG analysis was utilized.
ELECTROENCEPHALOGRAPHER IMPRESSION(S):
Quality of study
Good
Background
There was poorly organized, medium amplitude delta-frequency and minimal anterior-posterior voltage gradient
Sleep
Drowsiness present
Photic Stimulation
Failed to activate the record.
ECG
Normal sinus rhythm
Abnormal Findings
Initially in the study was nearly continuous of frontally�predominant generalizing rhythmic delta activity (FIRDA) of variable amplitudes. The 1.5/s activity gradually diminished and stopped by half-way through the study.
[2025-08-30] MEDS: ATIVAN 1 MG IV (14:58)
--- NOTE | 2025-08-30 16:12 | PTCARENOTE ---
All assessments per charting. Appears to be resting comfortably.
[2025-08-30] MEDS: CARDIZEM 5 MG IV ×2 (16:28→22:51)
[2025-08-30 17:38] LABS: Glucose - Point of Care 170 mg/dl (70-99)
[2025-08-30] MEDS: HEPARIN 25000 UNITS/250 ML IV (18:02)
[2025-08-30 18:39] LABS: APTT 95.9 Sec (23.4-35.0)
[2025-08-30 18:43] LABS: Sodium 147 mmol/L (135-145)
[2025-08-30] MEDS: VIMPAT 100 MG IV (19:32)
--- NOTE | 2025-08-30 19:43 | PTCARENOTE ---
Hand-off drip validation done with off-going nurse. Patient is currently resting in bed with eyes closed. Does not follow commands or speak, but does arouse to physical stimuli. Patient is in A fib with rates 80-100 at this time. No edema on exam,
pulses palpable. Lungs are diminished in the bases on room air. No cough. Abdomen is soft, non-tender, bowel sounds present. Purewick in place. Patient is incontinent of both bowel and bladder. Protective foams on skin in place. IV sites intact.
[2025-08-31] VITALS (26 sets, daily range): BP systolic 106–171; BP diastolic 61–115; BMI 26.4
[2025-08-31] MEDS: ZOSYN 50 IV ×2 (00:01→08:47)
[2025-08-31] MEDS: NOVOLOG FLEXPEN-MODERATE RESISTANCE 1 UNITS SC ×4 (00:03→17:32)
[2025-08-31 00:10] LABS: Glucose - Point of Care 167 mg/dl (70-99)
--- NOTE | 2025-08-31 01:56 | PTCARENOTE ---
Patient given 1 dose of prn dilt for HR > 120. Patient HR now 106. No other changes in assessment.
--- NOTE | 2025-08-31 03:49 | PTCARENOTE ---
Patient more awake and figidity. HR increased from earlier due to this. Patient is still not opening eyes or following commands.
[2025-08-31 04:03] LABS: Hematocrit 36.7 % (37.0-47.0); Hemoglobin 12.1 g/dL (12.0-16.0); Mean Corp Hgb Conc. 33.0 g/dL (33.0-37.0); Mean Corpuscular Volume 85.2 fL (81.0-99.0); Nucleated Red Blood Cells % 0 %; Platelet Count 218 10^3/uL (130-400); Red Cell Dist. Width 13.2 % (11.5-14.5)
[2025-08-31 04:18] LABS: APTT 93.7 Sec (23.4-35.0)
[2025-08-31 04:45] LABS: ALT (SGPT) 13 U/L (0-35); AST (SGOT) 21 U/L (14-36); Albumin 3.9 g/dl (3.5-5.0); Alkaline Phosphatase 111 U/L (38-126); Blood Urea Nitrogen 36 mg/dl (7-17); Calcium 10.3 mg/dl (8.4-10.2); Carbon Dioxide 19 mmol/L (22-30); Chloride 120 mmol/L (98-107); Estimated Creatinine Clearance 20 ml/min; Glucose 163 mg/dl (70-99); Potassium 4.4 mmol/L (3.5-5.1); Sodium 151 mmol/L (135-145); Total Protein 7.0 g/dl (6.3-8.2); eGFR 24.73
[2025-08-31] MEDS: CARDIZEM 5 MG IV (05:23)
[2025-08-31 06:16] LABS: Glucose - Point of Care 155 mg/dl (70-99)
[2025-08-31] MEDS: DESENEX/MITRAZOL/ZEASORB 1 APPLIC TOPICAL ×2 (08:43→20:34)
[2025-08-31] MEDS: VIMPAT 100 MG IV (08:44)
[2025-08-31] MEDS: KEPPRA 500 MG IV ×2 (08:46→20:34)
--- NOTE | 2025-08-31 09:00 | PTCARENOTE ---
Rec'd pt at 0730 resting in bed dozing. Does awaken to verbal and tactile stimuli. Started saying repeatedly 'I cant open my eyes- however when attempting to open eyelids manually pt squeezed them tighter shut. NAZ at 2mm. Rec'd in report that pt
is legally blind. Very difficult to assess neuro status/NIH as pt does not open her eyes. Was able to tell me her name but was disoriented as to location saying that she was in [place]. Would L arm tends to be contracted/tight towards her body
and resists moving it. Does lift her R arm somewhat but did not grasp with either arm. R leg tends to like to be bent under L leg but is able to move toes on the R. Did not move toes on her L. Did have some hand tremoring with stimulation. Speech
-some words are clear others are rambling/mumbled.. No distinct seizure activity noted. Skin is pale pink wm and dry. MASD noted under breasts and abd folds.- miconazole powder applied. Foam dressing intact on sacrum and heels. Respirs are sl
shallow but non-labored on RA with sats of 96%. BS are decreased at the bases. Monitor- Remains in Rapid AFib in the 120-150's. Not due for more IV Cardizem yet. Will update . VS as documented. DP pulses with the doppler. No edema. Abd is round
and soft with hypoactive BS. Currently NPO. Incont around purewick. Purewick removed for now. IV Heparin continues to infuse via L forearm IV site. Capped int intact R forearm. KVO with antibiotic infuisng via L wrist. Turned and repositioned. Skin
and mouth care given. Plan of care reviewed and call hernandez in reach.
[2025-08-31] MEDS: D5W 1000 IV (10:44)
[2025-08-31] MEDS: CARDIZEM 125 IV ×2 (10:45→19:55)
--- NOTE | 2025-08-31 10:59 | W.PN.NEURO.1 ---
Today's Communication / Plan
-
Repeat EEG
Advance lacosamide from 100 mg twice a day to dosing of 150 mg twice a day
Continue levetiracetam
Continue anticoagulation
Neuro Assessment/Plan
Assessment
IMPRESSIONS/RECOMMENDATIONS:
Abrupt onset of change in mental status in a patient with prior history of dementia and cortical blindness.
EEG on 08/29/2025 indicated status epilepticus treated with levetiracetam leading to improvement in changes by continuous EEG monitoring
As the patient did not have a total improvement clinically, added lacosamide 200 mg as a bolus then 100 mg every 12 hours
Patient was then provided a low-dose benzodiazepine without significant improvement
Plan
Repeat EEG
Advance lacosamide from 100 mg twice a day to dosing of 150 mg twice a day
Continue levetiracetam
Continue anticoagulation
Will follow peripherally
Subjective/Objective
Subjective Data
Date of Service: August 31, 2025
Patient unable to provide her own medical history
Objective Data
Vital Signs
Temp Pulse Resp BP Pulse Ox
37.6 C 146 12 126/92 92
08/31/25 07:25 08/31/25 10:00 08/31/25 10:00 08/31/25 10:00 08/31/25 10:00
Lab Results
08/31/25 03:35
PT 18.2 Sec (11.4-14.6) H 08/28/25 10:28
INR 1.50 08/28/25 10:28
APTT 93.7 Sec (23.4-35.0) H 08/31/25 03:35
Sodium 151 mmol/L (135-145) H 08/31/25 03:35
Potassium 4.4 mmol/L (3.5-5.1) 08/31/25 03:35
BUN 36 mg/dl (7-17) H 08/31/25 03:35
Glucose 163 mg/dl (70-99) H 08/31/25 03:35
Calcium 10.3 mg/dl (8.4-10.2) H 08/31/25 03:35
Phosphorus 3.7 mg/dl (2.5-4.5) 08/29/25 21:41
LDL Cholesterol, Calc Cancelled 08/29/25 09:22
Vitamin B12 690 pg/ml (239-931) 08/29/25 07:47
Patient Allergies
adhesive tape Allergy (Verified 12/26/21 17:23)
Rash
aspirin Allergy (Verified 12/12/23 14:35)
Anaphylaxis
coconut Allergy (Verified 12/26/21 17:23)
Rash
latex Allergy (Verified 12/26/21 17:23)
Rash
pneumococcal vaccine Allergy (Verified 12/25/21 09:40)
Unknown
vancomycin Allergy (Verified 12/25/21 09:40)
Unknown
Review of Systems
-
Unable to obtain full review of systems at this time due to: Lethargy and Aphasia
History Source: Patient
All other systems: Reviewed and negative
Physical Exam
-
physical exam limited, patient minimally responsive and perseverating '
General: Appears Chronically Ill and Older than Stated Age
Eyes: Round OU
Neck: Full Range of Motion
Psych: Negative Intact Judgement/Insight
Extended Neurological Exam
Attention Span & Concentration: Interactive (Intermittently), Closes Eyes after Stimulation, Unable to Perform 2 Step Request and Other (Does follow rare single step requests)
Memory: Unable to Assess
Tremor: Hand Tremor Absent and Head Tremor Absent
Speech: Severely Reduced Output
Cranial Nerve II: Left Eye: Pupillary Size Unremarkable
Cranial Nerve II: Right Eye: Pupillary Size Unremarkable
Cranial Nerves III, IV, : Extraocular Movement: Grossly Intact
Pronator Drift: Unable to Assess
Gait & Station: Unable to Assess
Past History
Past History
ED Past Medical History: Arrthythmia (Atrial fibrillation), CHF, CVA, HTN, Hypercholesterolemia, NIDDM, Renal failure (Chronic kidney disease), Other (Cellulitis, bacteremia, morbid obesity, chronic lower extremity dermatitis, chronic ambulatory
dysfunction, right lower extremity DVT, peripheral neuropathy) and Other (Bilateral carotid stenosis, aspiration pneumonia, urinary tract infection)
ED Past Surgical History: Other
Social History
Tobacco: Non-smoker
Alcohol: None
Drug: None
Living: group home
Employment: Retired
Family History
Family History: Unable to obtain
Medications
-
Medications:
Generic Name Dose Route Start Last Admin
Trade Name Freq PRN Reason Stop Dose Admin
Acetaminophen 650 mg 08/28/25 16:41
Acetaminophen 650 Mg Rectal Suppository RECTAL 09/25/25 16:40
Q4HPRN PRN
mild pain/PEREZ/temp> 100.4F
Dextrose 12.5 grams 08/28/25 16:41
Dextrose 50% (0.5 Grams/Ml) 50 Ml Syringe IV 09/25/25 16:40
[id number] PRN
hypoglycemia
Protocol
Diltiazem HCl 5 mg 08/30/25 13:49 08/31/25 05:23
Diltiazem 25 Mg/5 Ml Vial IV 09/27/25 13:48 5 mg
Q6HPRN PRN Administration
HR>120
Glucagon 1 mg 08/28/25 16:41
Glucagon 1 Mg Vial IM 09/25/25 16:40
PRN PRN
hypoglycemia
Protocol
Hydralazine HCl 5 mg 08/29/25 09:19
Hydralazine 20 Mg/Ml Vial IV 09/26/25 09:18
On Hold: 08/29/25 18:54 Q6HPRN PRN
SBP>180
Heparin Sodium 25,000 units in 250 mls @ 0 mls/hr 08/28/25 13:30 08/30/25 18:02
Heparin 04853 Units/250 Ml IV 250 mls
PER PROTOCOL EMILY Administration
Protocol
Per Protocol
Piperacillin Sod/Tazobactam Sod 2.25 grams in 50 mls @ 100 mls/hr 08/30/25 16:00 08/31/25 08:47
Zosyn IV 50 mls
Q8H EMILY Administration
Dextrose 1,000 mls @ 60 mls/hr 08/31/25 10:00 08/31/25 10:44
D5w IV 1,000 mls
.[id number] EMILY Administration
Diltiazem HCl 125 mg in 125 mls @ 0 mls/hr 08/31/25 10:30 08/31/25 10:45
Cardizem IV 125 mls
PER PROTOCOL EMILY Administration
Protocol
Per Protocol
Insulin Aspart 0 units 08/30/25 00:00 08/31/25 06:16
Insulin Aspart Moderate Resistance 300 Units/3 Ml Pen.Injctr SC 09/27/25 00:00 1 units
Q6 EMILY Administration
Protocol
Lacosamide 100 mg 08/30/25 20:00 08/31/25 08:44
Lacosamide (10 Mg/Ml) 200 Mg/20 Ml Vial IV 09/13/25 19:59 100 mg
Q12H EMILY Administration
Levetiracetam 500 mg 08/30/25 09:00 08/31/25 08:46
Levetiracetam (100 Mg/Ml) 500 Mg/5 Ml Vial IV 09/27/25 08:59 500 mg
Q12 EMILY Administration
Miconazole Nitrate 0 applic 08/29/25 08:00 08/31/25 08:43
Miconazole Powder Bottle TOPICAL 09/26/25 07:59 1 applic
BID EMILY Administration
Sodium Chloride 0 flush 08/28/25 14:00
Sodium Chloride 0.9% (Flush) Syringe IV 09/25/25 13:59
PER PROTOCOL EMILY
--- NOTE | 2025-08-31 11:08 | PTCARENOTE ---
Extended EEG in place. Dr. Douglas in to see pt. Neuro assessment is unchanged. Will say her name and a few random comments but will not consistently follow commands. Still will not really open her eyes and will keep them tightly shut when trying to
manually open them. HR has remained mostly in the 130-[address] Flood aware and Cardizem gtt initiated at 5 mg/hr via R wrist IV Site. - will titrate per protocol. IV fluids D5W initiated at 60 ml/hr via LAC IV site. No other changes.
--- NOTE | 2025-08-31 11:56 | W.PN.INTV ---
Addendum entered and electronically signed by Robin Flood MD 08/31/25 16:17:
- Stable for transfer to IMU
- Power Crane Operator service will sign off, please call as needed.
Original Note:
Today's Communication / Plan
Recommendations
Cardizem drip
Assessment
-
Ms. Fierro is a 70-year-old female with a past medical history of CVA (left parietal occipital lobe 2023, left subcortical basal ganglia), baseline dementia oriented x 1, bilateral blindness at baseline, asthma, hypertension, hyperlipidemia,
HFpEF, permanent A-fib on Eliquis, CKD 4, insulin-dependent diabetes, chronic lymphedema, chronic hypoxic respiratory failure presenting from [facility] for mental status changes.
#Neurologic
Pain: None
Analgesia: Tylenol, rectal
Mentation: At baseline, AAO x 1
Activity: Bedrest
Altered mental status
DDx CVA, seizures, encephalitis
Hx parietal occipital CVA, subcortical basal ganglia CVA
CT head negative for bleed CTA notable for multiple chronic CVAs, bilateral carotid stenosis, occlusion of R ASHLEY, R SCORER SINGLE
Ceribell with seizure activity, decreased after Keppra
Ammonia less than 9
TSH 1.4
B12 normal
ABG without hypercapnia
Per [facility] patient back at baseline
Neurology following
-Continue Keppra 500 every 12
-lacosamide 100 every 12
-MRI pending
-Blood cultures pending, no growth to date 24 hours
-Continue heparin drip
-Speech evaluation
- Repeat EEG
#Cardiovascular
Maintain MAP> 65
Pressors: None
QTc: 530
Essential hypertension
Hold home antihypertensives
HFpEF
Last echo 2023 EF 60�65
Hold torsemide
Permanent A-fib
On Eliquis at home
On heparin drip
Required Cardizem 5 mg x 2 yesterday
Starting Cardizem drip, 5 mg bolus
#Respiratory
Chest x-ray 08/28 with no cardiopulmonary process
O2 requirements: None
Home O2: None
Blood gas: 7.46/28/122/20 (08/29)
Hx chronic hypoxemic respiratory failure?
No current requirements, continue to monitor
Hx asthma
Continue to monitor
#Gastrointestinal
Diet: N.p.o., pending speech eval
Stooling regimen: None
Tubes: None
Antiemetics: None
GI PPx: None
Hyperlipidemia
Hold p.o. statin
#Renal
Serrano present: Yes
Urine output: About 400ml L overnight
IVF: D5W at 60 mL/h
Electrolytes: K>4 Mg>2
Na 151
K 4.4
Mag 2.2
Hypernatremia
Likely due to low p.o. intake
Continue IV fluids
Continue to monitor
Acute on chronic kidney injury, resolved
CKD stage IV:
Baseline 1.9-2.2?
Currently 2.1 presented 2.5
Continue IV fluids
Continue to monitor
#Infectious
WBC 6.8-> 7.8-> 8.2-> 10.4-> 11.0
ABX: Zosyn started 08/29
Microbiology: Blood cultures collected 08/28, pending no growth to date
Antipyretics: Acetaminophen, rectal
UA negative
Chest x-ray negative for cardiopulmonary process
Fever up to 100.8 afternoon 08/29, no fevers after
Leukocytosis
Likely reactive
Continue to monitor temperature curve
#Hematologic
DVT PPx: heparin drip
Hemoglobin: 12.6
PT
INR
PTT 93.7
#Endocrine
Maintain euglycemia with goal BG 140�180
Insulin-dependent diabetes
A1c 7.3 08/29
-Moderate insulin sliding scale
-Continue to monitor
#Surgical
None
#Access
Central:
None
Peripheral:
Left arm 20-gauge
Left hand 22-gauge
Right arm 22-gauge
Dispo: Possible downgrade to telemetry today
CODE STATUS: DNR
Subjective Dataa
Subjective Data
Date of Service:
Patient seen at bedside this morning, patient was more responsive and answering to questions following commands. Patient knew where she was but unable to state where she was taken time. Her primary hospitalist who talked with [facility] nursing
patient is back at baseline. Patient reported no pain anywhere denied headache chest pain shortness of breath abdominal pain nausea vomiting no fever no chills. Date of Service: August 31, 2025
Review of Systems
Genitourinary: Serrano
Objective Data
Data Reviewed
Vital Signs / I&O / Oxygen:
Vital Signs
Temp Pulse Resp BP Pulse Ox
99.6 F 146 12 126/92 92
08/31/25 11:01 08/31/25 10:00 08/31/25 10:00 08/31/25 10:00 08/31/25 10:00
Intake and Output
08/30/25 08/31/25 09/01/25
06:59 06:59 06:59
Intake Total 816 / 886 480 / 487.5 97.5 / 97.5
Output Total 1050 / 1050 950 / 950
Balance -234 / -164 -470 / -462.5 97.5 / 97.5
SaO2 92
Physical Exam
General: Comfortable
HEENT: Normocephalic
Cardiovascular: S1-S2 and Irregular Rhythm
Respiratory: Clear and Non-Labored Respirations
GI: Soft, Non Distended and Non Tender
Neurology: Awake and Alert
Skin: Warm and Dry
Labs/Micro/Reports
Lab Data
08/31/25 03:35
Laboratory Results
08/30/25 08/30/25 08/31/25
18:20 03:35
APTT 101.4 H 95.9 H 93.7 H
Microbiology
08/29/25 14:01 Blood/Venous Blood Culture - Preliminary
No Growth in 24 hours- Final report to follow
08/29/25 13:10 Blood/Venous Blood Culture - Preliminary
No Growth in 24 hours- Final report to follow
08/28/25 10:28 Nasal Swab Influenza Types A & B (MELE) - Final
Negative for Influenza A & B, NAAT
Negative results must be combined with clinical observations
and patient history.
Nucleic Acid Amplification test (NAAT)performed on the
[employer] platform.
--- NOTE | 2025-08-31 12:10 | PTCARENOTE ---
Overall assessment is unchanged. Will continue to say her name but most of the time will not follow other commands to grasp hands or move extremities. Cardizem gtt currently at 10 mg/hr hr in the 120's. VS as documented. Heparin gtt at 950 units/hr.
Pt taken currently to MRI via bed
--- NOTE | 2025-08-31 13:15 | PTCARENOTE ---
Returned from MRI- pt actually more interactive. Could tell me her name and that she was in the hospital. Did squeeze my hand with her R hand and wiggle the toes on her R foot. L arm tends to be contracted and could not grasp with her L and did not
wiggle her L foot. Does at times continue to repeat what is said to her but overall is a little more interactive. Cardizem is a 10 mg and HR is in the 90-100's. AFib. VS as documented. Has not voided since earlier. Will bladder scan if doesn't void
shortly. Skin and radha care given. Repositioned. Call hernandez in reach. Dr. Keating in earlier and will consult speech therapy.
[2025-08-31 13:18] LABS: Glucose - Point of Care 165 mg/dl (70-99)
--- NOTE | 2025-08-31 13:57 | W.PN.HOSP.TC ---
Addendum entered and electronically signed by Espinoza Keating MD 08/31/25 14:19:
Discussed with daughter
Original Note:
Today's Communication/Plan
-
monitor vitals
see plan
Discontinue further Zosyn and monitor
Follow fever curve
Continue with antiepileptic
Speech to evaluate, if able to tolerate p.o. then can start some of her p.o. meds
Monitor mental status
Continue with D5 water, repeat sodium later today
Assessment / Plan
Assessment / Plan
General: Other ( rigid extremities)
HEENT: NormoCephalic, Anicteric, [place] Conjunctivae
Respiratory: Clear; No Wheezes, Rales or Rhonchi
Cardiac: S1/S2 and Irregular Rhythm
GI: Soft, Non Tender, Non Distended, Normal Bowel Sounds
Musculoskeletal: No Edema
Neuro: AAOx 0-1
Psych: baseline dementia per NH
Change in mental status could likely be secondary to seizure
#History of prior CVAs,�left parietal occipital lobe 09/15/2021 with mild petechial hemorrhage, left subcortical basal ganglia CVA baseline oriented x 1 bedbound
COVID and flu negative, urinalysis negative, CXR negative, fever now could be secondary to seizure or aspiration event given her mental status. Blood culture negative so far. DC further Zosyn and monitor
- Allergy to aspirin
Currently n.p.o., now the mental status slowly improving speech to evaluate
Neurology following, was transferred to ICU 08/29 for cerebell. EEG indicated status epilepticus. Now on Keppra, Vimpat.
-okay for IV heparin drip per Neuro Dr machado no bolus given patient on Eliquis for A-fib history also DVT unable to swallow due to obtunded state. Can transition back to Eliquis if okay with neurology once mental status improves and patient able to
tolerate p.o.
-MRI brain does not appear to have acute CVA
CT, CTA noted. Severe atherosclerotic plaque. Discussed with neurology, senior portfolio analyst. Does not believe any vascular intervention will improve any functional of the patient. Discussed with [facility] staff and appears that patient is mostly
bedbound. Prognosis appears guarded.
ABG without hypercarbia
NECK CTA:
1. SEVERE STENOSIS (greater than 70% diameter) in the PROXIMAL RIGHT ICA.
2. 50-70% diameter stenosis in the proximal left ICA.
3. No CTA evidence for stenosis in the cervical segments of the vertebral arteries.
4. Moderate calcific atherosclerotic plaque in the coronary arteries.
5. Severe discogenic degenerative disease at C5/C6.
6. Mild multilevel spinal cord compression and central canal stenosis.
HEAD CTA:
1. Severe atherosclerotic plaque in BOTH INTRACRANIAL INTERNAL CAROTID ARTERIES causing SEVERE STENOSES (greater than 70% diameter).
2. Complete occlusion of the A1 segment of the right anterior cerebral artery.
3. Greater than 70% diameter stenosis in the left intracranial vertebral artery.
4. 50-70% diameter stenosis in the right intracranial vertebral artery.
5. 50-70% diameter stenosis in the basilar artery.
6. COMPLETE OCCLUSION of the P3 segment of the RIGHT POSTERIOR CEREBRAL ARTERY.
7. Chronic transcortical infarcts in the posterior occipital lobes and right parietal lobe.
8. Moderate white matter leukoaraiosis in both cerebral hemispheres.
CXR: No evidence for pneumonia, severe DDD thoracic lumbar spine
#Chronic stenosis bilateral carotid arteries
Severe stenosis> 70% proximal right ICA, left ICA
#ALEXANDRA on CKD 4
History of Proteus UTI December 2023
Creat 2.5/bun 64 baseline appears 1.6. Creatinine 1.6 was 2023. Unclear if renal function progressively has gotten worse. Will monitor. Creatinine 2.1 today
-Urinalysis negative
-Hold lisinopril 40 mg daily, torsemide 40 mg daily
fever 12
will need to r/o infection
ua neg; xray doesnt suggest PNA
could have aspiration event given lethargy or could be secondary to seizure
Blood culture negative so far. DC further Zosyn and monitor
Hypernatremia
Start D5 water, repeat sodium later today
Hypercalcemia
Monitor
#Dementia with chronic bedbound status
Baseline oriented x 1 however per [facility] does get her needs known
Patient currently obtunded does not respond to name
#History of aspiration pneumonia 12/18/2023
History of reported chronic hypoxic respiratory failure on O2 at [facility]
Will monitor pulse ox
#HTN
hydralazine prn
#HLD
Was on atorvastatin
#A-fib�permanent
Unable to take due to being obtunded- Cardizem 120 mg daily, Eliquis 5 mg twice daily
Currently started on Cardizem drip, if cleared by speech then can start oral Cardizem and can wean Cardizem gtt
cw IV hep
EK bpm, A-fib QTc B513 MS chronic nonspecific T wave abnormality anterolateral leads
#DM 2
Accu-Cheks with SSI,
Hypoglycemia coverage
#Normocytic anemia
monitor
#Depression
Prior Zoloft
#Chronic lymphedema venous stasis bilateral lower extremities
Hold torsemide 40 mg daily
#Insomnia
Hold melatonin 3 mg at bedtime
DVT prophylaxis
IV heparin drip since patient obtunded unable to take oral Eliquis
DNR per [facility]
Called daughter /15, left voicemail
Discussed with daughter /16; discussed hospital course along with poor prognosis if symptoms do not improve. She does have understanding of patient's complex medical illness
Total Critical Care Time__43___ minutes. I was immediately available to the patient and staff. I personally examined, reviewed labs, diagnostic images/reports, interpretations, treatment plans, discussed patient care with other providers and
family or caregivers (if patient is unable to make decisions), entered orders as appropriate and documented the medical record.
Anticipated Discharge: > 48 hours
Subjective/Interval History
-
Date of Service: August 31, 2025
Bit more awake today
Objective Data
-
Labs:
Laboratory Results
08/31/25 08/31/25
03:35 14:00
WBC 11.0 H
Hgb 12.1
Hct 36.7 L
Plt Count 218
APTT 93.7 H
Sodium 151 H Pending
Potassium 4.4
Chloride 120 H
Carbon Dioxide 19 L
BUN 36 H
Creatinine 2.1 H
Glucose 163 H
Calcium 10.3 H
Total Bilirubin 0.7
AST 21
ALT 13
Alkaline Phosphatase 111
Vital Signs:
Vital Signs
Temp Pulse Resp BP Pulse Ox
99.6 F 146 12 126/92 92
08/31/25 11:01 08/31/25 10:00 08/31/25 10:00 08/31/25 10:00 08/31/25 10:00
I&O
08/30/25 08/31/25 09/01/25
06:59 06:59 06:59
Intake Total 816 / 886 480 / 487.5 256.5 / 256.5
Output Total 1050 / 1050 950 / 950
Balance -234 / -164 -470 / -462.5 256.5 / 256.5
--- NOTE | 2025-08-31 15:30 | PTCARENOTE ---
Na++ level sent. Pt repositioned. Assessement is unchanged.
[2025-08-31] MEDS: HEPARIN 25000 UNITS/250 ML IV (15:38)
--- NOTE | 2025-08-31 15:45 | PTOTSP ---
Speech Therapy Evaluation:
Pt with multiple chronic dysphagia risk factors including dementia, L parietal/occipital CVA with mild petechial hemorrhage (09/15/2021), L subcortical basal ganglia CVA, bilateral carotid stenosis, aspiration PNA, CHRF, and asthma. Pt is also
bedbound, increasing risk for development of aspiration complication. Pt also has acute risk factors for dysphagia including encephalopathy in the setting of seizure. At bedside, pt with oral impairments and concern for pharyngeal impairment as
detailed in note. CXR without PNA, however current presentation not supportive of oral diet at this time.
Recommend:
1. Temporary NPO
2. Medications non-oral
3. Oral care 3x/daily
4. STAFF THERAPIST to follow to assess candidacy for diet initiation versus need for instrumental assessment
[2025-08-31 16:00] LABS: Sodium 139 mmol/L (135-145)
--- NOTE | 2025-08-31 16:40 | EEG.RPT ---
Electroencephalogram Report
Recording
Date of EE08/31/25
Type of EEG: Routine
Length of EEG recordin minutes
Done with Video Recording: Yes
Patient Status: Inpatient
Recording Conditions: Awake and Drowsy
Hyperventilation Performed: No
Photic Stimulation Performed: Yes
Report
GREATER THAN 1 HOUR REPORT
GREATER THAN 1 HOUR EEG INTERPRETATION:
Moderately abnormal EEG for age in wakefulness through drowsiness due to frontally predominant generalizing discharges
CLINICAL CORRELATION:
This study was suggestive of bifrontal cortical dysfunction. No seizures were recorded. In comparison with the study performed 1 day ago, there has been improvement in that the rhythmicity has significantly declined. Clinical correlation is
advised.
METHODS:
A 21 channel digitized electroencephalogram (EEG) was performed at the bedside in the intensive care unit. The 10/20 international system of electrode placement was used with ECG and lateral/vertical eye movements recorded. Video was recorded.
Persyst quantitative EEG analysis was utilized.
ELECTROENCEPHALOGRAPHER IMPRESSION(S):
Quality of study
Good
Background
Poorly maintained, medium amplitude typically delta-frequency and poorly organized anterior-posterior voltage gradient
Sleep
Drowsiness present
Photic Stimulation
Failed to activate the record.
ECG
Normal sinus rhythm
Abnormal Findings
Nearly constantly through the study although less organized at times were bursts of 2/s frontal intermittent rhythmic delta activity (FIRDA) of variable amplitudes
[2025-08-31 17:32] LABS: Glucose - Point of Care 173 mg/dl (70-99)
[2025-08-31 17:51] LABS: Sodium 150 mmol/L (135-145)
--- NOTE | 2025-08-31 18:00 | PTCARENOTE ---
NA++ level repeated due to questionable earlier result. Overall assessment is unchanged. Continues to answer a few basic questions- continues to tell me her name and that she is in the hospital. Did however mouthe some words to a [place] song that
was on TV. Mostly of the time is drowsy. Moved her R foot and R arm when asked but not her L and she did elude to the fact that her L was her weaker side. Vs as documented. HR mostly in the 90's on the Cardizem at 10 mg. Incont of urine. Skin and
radha care given.
--- NOTE | 2025-08-31 20:00 | PTCARENOTE ---
Hand-off drip validation done with off-going nurse. Patient is laying in bed with eyes closed. She is able to say her name but does not answer other questions. She does not open her eyes on her own. She is able to follow simple commands such as
squeezing my hand with both of her hands and wiggling her toes on both feet. She is afebrile. Her left arm appears to be contracted and is much stiffer than other extremities. She is in atrial fibrillation with rates in the 80s. No edema on exam,
her pulses are palpable. Lungs are clear on room air. Abdomen is soft, non-tender. Purewick is in place with yellow urine in suction canister. Skin is intact with protective foams in place. IV sites are intact.
[2025-08-31] MEDS: VIMPAT 150 MG IV (20:34)
[2025-08-31 23:31] LABS: Sodium 144 mmol/L (135-145)
[2025-09-01] VITALS (15 sets, daily range): BP systolic 130–182; BP diastolic 82–134; BMI 26.9
--- NOTE | 2025-09-01 00:05 | PTCARENOTE ---
Cardizem drip off due to patient HR being consistently below ordered HR parameters. See worklist for separate charting. No changes in assessment otherwise. Na level sent- 144 which is improved from previous result.
[2025-09-01 00:08] LABS: Glucose - Point of Care 219 mg/dl (70-99)
[2025-09-01] MEDS: NOVOLOG FLEXPEN-MODERATE RESISTANCE 3 UNITS SC ×2 (00:10→12:40)
[2025-09-01 04:11] LABS: Hematocrit 35.6 % (37.0-47.0); Hemoglobin 11.5 g/dL (12.0-16.0); Mean Corp Hgb Conc. 32.3 g/dL (33.0-37.0); Mean Corpuscular Volume 84.8 fL (81.0-99.0); Nucleated Red Blood Cells % 0 %; Platelet Count 205 10^3/uL (130-400); Red Cell Dist. Width 13.4 % (11.5-14.5)
--- NOTE | 2025-09-01 04:14 | PTCARENOTE ---
Right arm IV infiltrated with fluids running. No redness or tenderness at site, just swollen arm past the IV site. IV taken out. No other changes in assessment at this time.
[2025-09-01 04:17] LABS: APTT 88.3 Sec (23.4-35.0)
[2025-09-01] MEDS: D5W 1000 IV (04:28)
[2025-09-01 04:32] LABS: ALT (SGPT) 12 U/L (0-35); AST (SGOT) 17 U/L (14-36); Albumin 3.8 g/dl (3.5-5.0); Alkaline Phosphatase 103 U/L (38-126); Blood Urea Nitrogen 31 mg/dl (7-17); Calcium 10.0 mg/dl (8.4-10.2); Carbon Dioxide 17 mmol/L (22-30); Chloride 111 mmol/L (98-107); Estimated Creatinine Clearance 24 ml/min; Glucose 415 mg/dl (70-99); Potassium 3.4 mmol/L (3.5-5.1); Sodium 138 mmol/L (135-145); Total Protein 7.0 g/dl (6.3-8.2); eGFR 29.75
[2025-09-01 06:11] LABS: Glucose - Point of Care 173 mg/dl (70-99)
[2025-09-01] MEDS: NOVOLOG FLEXPEN-MODERATE RESISTANCE 1 UNITS SC ×2 (06:23→18:19)
[2025-09-01] MEDS: DESENEX/MITRAZOL/ZEASORB 1 APPLIC TOPICAL ×2 (08:00→20:29)
[2025-09-01] MEDS: VIMPAT 150 MG IV (08:01)
[2025-09-01] MEDS: KEPPRA 500 MG IV ×2 (08:02→20:29)
--- NOTE | 2025-09-01 09:59 | PTCARENOTE ---
pt is awake and responding to vocal commands at intervals , she can answer one word answers , she is requesting to drink water, speech is at bedside and has recommended a VSE , she continues to be in afib her Cardizem gtt has been off since 2229 ,
lungs are diminished at bases , she is on room air with sat of 99% , afebrile , WBC 9.2 , her potassium 3.4 and is receiving 40 IV kcl as ordered
[2025-09-01] MEDS: KCL 270 MEQ IV (10:05)
--- NOTE | 2025-09-01 12:30 | W.PN.HOSP.TC ---
Today's Communication/Plan
-
Monitor vitals and see plan
Monitor mental status
Continue with antiepileptic
Seen by speech today, requested VSE
Currently n.p.o. per speech
Continue with Cardizem drip if needed
Continue IV heparin
Replete potassium
Assessment / Plan
Assessment / Plan
General: Other ( rigid extremities)
HEENT: NormoCephalic, Anicteric, [place] Conjunctivae
Respiratory: Clear; No Wheezes, Rales or Rhonchi
Cardiac: S1/S2 and Irregular Rhythm
GI: Soft, Non Tender, Non Distended, Normal Bowel Sounds
Musculoskeletal: No Edema
Neuro: AAOx 0-1
Psych: baseline dementia per NH
Change in mental status could likely be secondary to seizure
#History of prior CVAs,�left parietal occipital lobe 09/15/2021 with mild petechial hemorrhage, left subcortical basal ganglia CVA baseline oriented x 1 bedbound
COVID and flu negative, urinalysis negative, CXR negative, fever now could be secondary to seizure or aspiration event given her mental status. Blood culture negative so far. DC further Zosyn and monitor
- Allergy to aspirin
Currently n.p.o., now the mental status slowly improving speech to evaluate. Seen by speech. Requested VSE. VSE 09/01
Neurology following, was transferred to ICU 08/29 for cerebell. EEG indicated status epilepticus. Now on Keppra, Vimpat.
-okay for IV heparin drip per Neuro Dr machado no bolus given patient on Eliquis for A-fib history also DVT unable to swallow due to obtunded state. Can transition back to Eliquis if okay with neurology once mental status improves and patient able to
tolerate p.o.
-MRI brain does not appear to have acute CVA
CT, CTA noted. Severe atherosclerotic plaque. 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 Does not believe any vascular intervention will improve any functional of the patient. Discussed with [facility] staff and appears that patient is mostly
bedbound. Prognosis appears guarded.
ABG without hypercarbia
NECK CTA:
1. SEVERE STENOSIS (greater than 70% diameter) in the PROXIMAL RIGHT ICA.
2. 50-70% diameter stenosis in the proximal left ICA.
3. No CTA evidence for stenosis in the cervical segments of the vertebral arteries.
4. Moderate calcific atherosclerotic plaque in the coronary arteries.
5. Severe discogenic degenerative disease at C5/C6.
6. Mild multilevel spinal cord compression and central canal stenosis.
HEAD CTA:
1. Severe atherosclerotic plaque in BOTH INTRACRANIAL INTERNAL CAROTID ARTERIES causing SEVERE STENOSES (greater than 70% diameter).
2. Complete occlusion of the A1 segment of the right anterior cerebral artery.
3. Greater than 70% diameter stenosis in the left intracranial vertebral artery.
4. 50-70% diameter stenosis in the right intracranial vertebral artery.
5. 50-70% diameter stenosis in the basilar artery.
6. COMPLETE OCCLUSION of the P3 segment of the RIGHT POSTERIOR CEREBRAL ARTERY.
7. Chronic transcortical infarcts in the posterior occipital lobes and right parietal lobe.
8. Moderate white matter leukoaraiosis in both cerebral hemispheres.
CXR: No evidence for pneumonia, severe DDD thoracic lumbar spine
#Chronic stenosis bilateral carotid arteries
Severe stenosis> 70% proximal right ICA, left ICA
#ALEXANDRA on CKD 4
History of Proteus UTI December 2023
Creat 2.5/bun 64 baseline appears 1.6. Creatinine 1.6 was 2023. Unclear if renal function progressively has gotten worse. Will monitor. Creatinine 1.8 today
-Urinalysis negative
-Hold lisinopril 40 mg daily, torsemide 40 mg daily
fever 12/15
will need to r/o infection
ua neg; xray doesnt suggest PNA
could have aspiration event given lethargy or could be secondary to seizure
Blood culture negative so far. DC further Zosyn and monitor
Hypernatremia
Was on D5 water, now stopped. Sodium improving
Hypercalcemia
Improving
#Dementia with chronic bedbound status
Baseline oriented x 1 however per [facility] does get her needs known
Patient currently obtunded does not respond to name
#History of aspiration pneumonia 12/18/2023
History of reported chronic hypoxic respiratory failure on O2 at [facility]
Will monitor pulse ox
#HTN
hydralazine prn
#HLD
Was on atorvastatin
#A-fib�permanent
Unable to take due to being obtunded- Cardizem 120 mg daily, Eliquis 5 mg twice daily
Currently started on Cardizem drip, if cleared by speech then can start oral Cardizem and can wean Cardizem gtt
cw IV hep
EK bpm, A-fib QTc B513 MS chronic nonspecific T wave abnormality anterolateral leads
#DM 2
Accu-Cheks with SSI,
Hypoglycemia coverage
#Normocytic anemia
monitor
#Depression
Prior Zoloft
#Chronic lymphedema venous stasis bilateral lower extremities
Hold torsemide 40 mg daily
#Insomnia
Hold melatonin 3 mg at bedtime
DVT prophylaxis
IV heparin drip since patient obtunded unable to take oral Eliquis
DNR per [facility]
Called daughter 12/15, left voicemail
Discussed with daughter 12/16; discussed hospital course along with poor prognosis if symptoms do not improve. She does have understanding of patient's complex medical illness
I spent a total of 53 minutes with the patient or on the floor. More than 50% of this time involved counseling and coordination of care.
Anticipated Discharge: 24 - 48 hours
Subjective/Interval History
-
Date of Service: September 01, 2025
Bit more awake today
Objective Data
-
Labs:
Laboratory Results
09/01/25
03:51
WBC 9.2
Hgb 11.5 L
Hct 35.6 L
Plt Count 205
APTT 88.3 H
Sodium 138
Potassium 3.4 L
Chloride 111 H
Carbon Dioxide 17 L
BUN 31 H
Creatinine 1.8 H
Glucose 415 H
Calcium 10.0
Total Bilirubin 0.8
AST 17
ALT 12
Alkaline Phosphatase 103
Vital Signs:
Vital Signs
Temp Pulse Resp BP Pulse Ox
98.4 F 72 17 156/98 98
09/01/25 08:00 09/01/25 09:00 09/01/25 09:00 09/01/25 08:00 09/01/25 09:00
I&O
08/31/25 09/01/25 09/02/25
06:59 06:59 06:59
Intake Total 480 / 490 1595 / 1665 210 / 210
Output Total 950 / 950 1150 / 1150
Balance -470 / -460 445 / 515 210 / 210
[2025-09-01] MEDS: CARDIZEM 5 MG IV ×2 (12:37→18:54)
[2025-09-01 12:39] LABS: Glucose - Point of Care 202 mg/dl (70-99)
--- NOTE | 2025-09-01 14:13 | CM ---
F/U: Patient is NPO, on IV Heparin, and may continue with cardizem drip- not ready as of yet. Patient is LTC at [facility]. PLAN: Return to [facility].
--- NOTE | 2025-09-01 14:18 | W.PN.NEURO.1 ---
Today's Communication / Plan
-
Reduce lacosamide from 150 mg twice a day to dosing of 100 mg twice a day due to lethargy
Continue levetiracetam
Continue anticoagulation
Consider repeated EEG if patient does not have improvement in awareness
Neuro Assessment/Plan
Assessment
IMPRESSIONS/RECOMMENDATIONS:
Abrupt onset of change in mental status in a patient with prior history of dementia and cortical blindness.
EEG on 08/29/2025 indicated status epilepticus treated with levetiracetam leading to improvement in changes by continuous EEG monitoring
As the patient did not have a total improvement clinically, added lacosamide 200 mg as a bolus then 100 mg every 12 hours
Patient was then provided a low-dose benzodiazepine without significant improvement
Plan
Reduce lacosamide from 150 mg twice a day to dosing of 100 mg twice a day due to lethargy
Continue levetiracetam
Continue anticoagulation
Consider repeated EEG if patient does not have improvement in awareness
Will follow peripherally
Subjective/Objective
Subjective Data
Date of Service: September 01, 2025
Objective Data
Vital Signs
Temp Pulse Resp BP Pulse Ox
36.8 C 108 18 142/117 100
09/01/25 12:00 09/01/25 14:00 09/01/25 14:00 09/01/25 14:00 09/01/25 11:00
Lab Results
09/01/25 03:51
09/01/25 03:51
PT 18.2 Sec (11.4-14.6) H 08/28/25 10:28
INR 1.50 08/28/25 10:28
APTT 88.3 Sec (23.4-35.0) H 09/01/25 03:51
Sodium 138 mmol/L (135-145) 09/01/25 03:51
Potassium 3.4 mmol/L (3.5-5.1) L 09/01/25 03:51
BUN 31 mg/dl (7-17) H 09/01/25 03:51
Glucose 415 mg/dl (70-99) H 09/01/25 03:51
Calcium 10.0 mg/dl (8.4-10.2) 09/01/25 03:51
Phosphorus 3.7 mg/dl (2.5-4.5) 08/29/25 21:41
LDL Cholesterol, Calc Cancelled 08/29/25 09:22
Vitamin B12 690 pg/ml (239-931) 08/29/25 07:47
Patient Allergies
adhesive tape Allergy (Verified 12/26/21 17:23)
Rash
aspirin Allergy (Verified 12/12/23 14:35)
Anaphylaxis
coconut Allergy (Verified 12/26/21 17:23)
Rash
latex Allergy (Verified 12/26/21 17:23)
Rash
pneumococcal vaccine Allergy (Verified 12/25/21 09:40)
Unknown
vancomycin Allergy (Verified 12/25/21 09:40)
Unknown
Past History
Past History
ED Past Medical History: Arrthythmia (Atrial fibrillation), CHF, CVA, HTN, Hypercholesterolemia, NIDDM, Renal failure (Chronic kidney disease), Other (Cellulitis, bacteremia, morbid obesity, chronic lower extremity dermatitis, chronic ambulatory
dysfunction, right lower extremity DVT, peripheral neuropathy) and Other (Bilateral carotid stenosis, aspiration pneumonia, urinary tract infection)
ED Past Surgical History: Other
Social History
Tobacco: Non-smoker
Alcohol: None
Drug: None
Living: residential
Employment: Retired
Family History
Family History: Unable to obtain
Medications
-
Medications:
Generic Name Dose Route Start Last Admin
Trade Name Freq PRN Reason Stop Dose Admin
Acetaminophen 650 mg 08/28/25 16:41
Acetaminophen 650 Mg Rectal Suppository RECTAL 09/25/25 16:40
Q4HPRN PRN
mild pain/PEREZ/temp> 100.4F
Dextrose 12.5 grams 08/28/25 16:41
Dextrose 50% (0.5 Grams/Ml) 50 Ml Syringe IV 09/25/25 16:40
[id number] PRN
hypoglycemia
Protocol
Diltiazem HCl 5 mg 08/30/25 13:49 09/01/25 12:37
Diltiazem 25 Mg/5 Ml Vial IV 09/27/25 13:48 5 mg
Q6HPRN PRN Administration
HR>120
Glucagon 1 mg 08/28/25 16:41
Glucagon 1 Mg Vial IM 09/25/25 16:40
PRN PRN
hypoglycemia
Protocol
Hydralazine HCl 5 mg 08/29/25 09:19
Hydralazine 20 Mg/Ml Vial IV 09/26/25 09:18
On Hold: 08/29/25 18:54 Q6HPRN PRN
SBP>180
Heparin Sodium 25,000 units in 250 mls @ 0 mls/hr 08/28/25 13:30 08/31/25 15:38
Heparin 70389 Units/250 Ml IV 250 mls
PER PROTOCOL EMILY Administration
Protocol
Per Protocol
Diltiazem HCl 125 mg in 125 mls @ 0 mls/hr 08/31/25 10:30 08/31/25 19:55
Cardizem IV 125 mls
PER PROTOCOL EMILY Administration
Protocol
Per Protocol
Insulin Aspart 0 units 08/30/25 00:00 09/01/25 12:40
Insulin Aspart Moderate Resistance 300 Units/3 Ml Pen.Injctr SC 09/27/25 00:00 3 units
Q6 EMILY Administration
Protocol
Lacosamide 100 mg 09/01/25 14:18
Lacosamide (10 Mg/Ml) 200 Mg/20 Ml Vial IV 09/13/25 19:59
Q12H EMILY
Levetiracetam 500 mg 08/30/25 09:00 09/01/25 08:02
Levetiracetam (100 Mg/Ml) 500 Mg/5 Ml Vial IV 09/27/25 08:59 500 mg
Q12 EMILY Administration
Miconazole Nitrate 0 applic 08/29/25 08:00 09/01/25 08:00
Miconazole Powder Bottle TOPICAL 09/26/25 07:59 1 applic
BID EMILY Administration
Sodium Chloride 0 flush 08/28/25 14:00
Sodium Chloride 0.9% (Flush) Syringe IV 09/25/25 13:59
PER PROTOCOL EMILY
--- NOTE | 2025-09-01 15:03 | PTOTSP ---
Speech Therapy VSE:
Patient presents with moderate oral and severe pharyngeal dysphagia. Deep penetration and aspiration occurred across consistencies. Aspiration silent at times. Reflexive/cued cough was weak, resulting in inability to clear contrast from
airway/vestibule and making it difficult to determine new vs old penetration/aspiration. At times, no swallow initiation observed at all, suspect related to cognitive status. No significant pharyngeal residue observed. Distal esophageal retention
present during screening. Suspect etiology of swallow function related to hx of CVAs and dementia and compounded by encephalopathy in the setting of seizure. Given patient tolerating regular solids and thin liquids during multiple prior admissions
and while at [facility] and CXR without pneumonia concerns, could consider repeat instrumental when encephalopathy resolves. Please see patient care note for full details of penetration/aspiration and swallowing physiology.
Recommend:
1. NPO given absent sensory response to airway invasion, poor airway clearance, and inability to participate in compensatory strategies.
2. Medications non-oral
3. ARHP via ice chips following oral care with supervision
4. Oral care 3x/daily
5. BUSINESS TECHNOLOGY ARCHITECT to follow for education regarding results of VSE and for ongoing tx at the acute care level. Patient would benefit from repeat instrumental prior to diet initiation given silent aspiration.
[2025-09-01 18:01] LABS: Glucose - Point of Care 165 mg/dl (70-99)
[2025-09-01] MEDS: HEPARIN 25000 UNITS/250 ML IV (18:19)
--- NOTE | 2025-09-01 20:00 | PTCARENOTE ---
Resumed care of pt laying in bed sleeping. Pt easily arousable to voice. Pt with slow speech, pt able to say name, hospital, and birthday. NIH assessed 14 at this time. left sided weakness due to previous CVA. Tremors noted. Pt failed video swallow,
strict NPO enforced. Oral care provided. Asp prec in place. HR in the 90's to low 100's in Afib on the monitor. POX 100% on RA. Lungs dec @ bases, shallow, poor effort. + bowel. No BM noted. Pure wick in place. Sacral foam in place for protection.
Palpable peripheral pulses. Heels elevated on pillows. Left hand Int infusing Heparin gtt @1000units/hr per protocol. Left forearm int removed due to pt reported pain upon flushing. Pt repositioned with pillow. No issues to report at this time. Will
continue to monitor.
[2025-09-01] MEDS: VIMPAT 100 MG IV (20:30)
[2025-09-01] MEDS: NOVOLOG FLEXPEN-MODERATE RESISTANCE SC (23:42)
[2025-09-01 23:46] LABS: Glucose - Point of Care 140 mg/dl (70-99)
[2025-09-02] VITALS (30 sets, daily range): BP systolic 118–212; BP diastolic 78–120; BMI 26.2
[2025-09-02 04:26] LABS: APTT 37.0 Sec (23.4-35.0)
[2025-09-02 04:47] LABS: Blood Urea Nitrogen 28 mg/dl (7-17); Calcium 10.6 mg/dl (8.4-10.2); Carbon Dioxide 17 mmol/L (22-30); Chloride 118 mmol/L (98-107); Estimated Creatinine Clearance 25 ml/min; Glucose 136 mg/dl (70-99); Potassium 5.0 mmol/L (3.5-5.1); Sodium 146 mmol/L (135-145); eGFR 31.86
[2025-09-02 05:52] LABS: Hematocrit 39.0 % (37.0-47.0); Hemoglobin 12.5 g/dL (12.0-16.0); Mean Corp Hgb Conc. 32.1 g/dL (33.0-37.0); Mean Corpuscular Volume 86.3 fL (81.0-99.0); Nucleated Red Blood Cells % 0 %; Platelet Count 154 10^3/uL (130-400); Red Cell Dist. Width 13.4 % (11.5-14.5)
[2025-09-02] MEDS: CARDIZEM 5 MG IV (06:16)
[2025-09-02] MEDS: NOVOLOG FLEXPEN-MODERATE RESISTANCE 1 UNITS SC ×4 (06:19→23:45)
[2025-09-02 06:24] LABS: Glucose - Point of Care 169 mg/dl (70-99)
--- NOTE | 2025-09-02 07:30 | PTCARENOTE ---
Patient received lying in bed with eyes closed. Opens eyes spontaneously. Patient is oriented to 'hospital' and name, requests water but forgetful that she is unable to have water. Confused to year. See director of assessment charted on worklist flowsheet.
She currently denies pain. BBS with UL clear anteriorly, bilateral bases diminished. S1S2 tachycardic and irregular. Afib with RVR on CM, HR 100-120 sustained, occasionally 130s. RUE edema 1+, Bilateral LE edema trace to 1+. Pedal pulses diminished.
Essential tremors BUEs. SCDs and purewick in place. Scattered ecchymosis BUEs. Bed in low and locked position, call hernandez within reach. Frequent rounds. Turned every 2 hours. HOB up 30 degrees.
[2025-09-02] MEDS: KEPPRA 500 MG IV ×2 (08:15→20:12)
[2025-09-02] MEDS: VIMPAT 100 MG IV ×2 (08:15→20:11)
[2025-09-02] MEDS: D5W 1000 IV (09:45)
[2025-09-02] MEDS: DESENEX/MITRAZOL/ZEASORB 1 APPLIC TOPICAL ×2 (09:45→20:12)
--- NOTE | 2025-09-02 10:00 | PTCARENOTE ---
BP elevated 151/117 automatic. Attempted BP right FA, Right upper arm, Left upper arm, left thigh--BP elevated 151-200/95-120. Dr Keating notified. Manual BP 148/110. Cardizem gtt was started at 1015 for elevated HR 100-130.
[2025-09-02] MEDS: CARDIZEM 125 IV (10:12)
--- NOTE | 2025-09-02 11:30 | PTCARENOTE ---
BP remains elevated 180-200/90s. New orders received. 5mg IV Metoprolol given per order.
[2025-09-02 11:52] LABS: Glucose - Point of Care 157 mg/dl (70-99)
--- NOTE | 2025-09-02 11:57 | CM ---
F/U: Hospitalist asked if patient had any NOK, spoke to [facility], she does not have any decision maker. Hospitalist is having difficulty and unsure if the patient can have a conversation. Patient did not pass EMPLOYEE PLACEMENT SPECIALIST so Hospitalist said that he will
attempt to discuss nutrition option with the patient. PLAN: Return to [facility] when ready.
[2025-09-02] MEDS: LOPRESSOR 5 MG IV (12:00)
[2025-09-02 13:37] LABS: APTT 100.7 Sec (23.4-35.0)
--- NOTE | 2025-09-02 13:38 | W.PN.HOSP.TC ---
Addendum entered and electronically signed by Espinoza Keating MD 09/02/25 16:10:
Legally blind
Original Note:
Today's Communication/Plan
-
Monitor vital signs see plan
Continue to monitor mental status closely
Speech to continue to follow
Mental status waxes and wanes. Currently lethargic. Failed speech and swallow. VSE with possible aspiration. Speech to continue to follow. Goals of care discussions can be done with the patient as concern for competency with waxing and weaning
mental status. Consult psychiatry for competence. Her point of contact is niece that is listed in the chart. Per [facility] patient made herself DNR a while back however there is no living will.
Assessment / Plan
Assessment / Plan
General: Other ( rigid extremities)
HEENT: NormoCephalic, Anicteric, Palco Conjunctivae
Respiratory: Clear; No Wheezes, Rales or Rhonchi
Cardiac: S1/S2 and Irregular Rhythm
GI: Soft, Non Tender, Non Distended, Normal Bowel Sounds
Musculoskeletal: No Edema
Neuro: AAOx 0-1
Psych: baseline dementia per NH
Change in mental status could likely be secondary to seizure
#History of prior CVAs,�left parietal occipital lobe 09/15/2021 with mild petechial hemorrhage, left subcortical basal ganglia CVA baseline oriented x 1 bedbound
COVID and flu negative, urinalysis negative, CXR negative, fever now could be secondary to seizure or aspiration event given her mental status. Blood culture negative so far. DC further Zosyn and monitor
- Allergy to aspirin
Currently n.p.o., now the mental status slowly improving speech to evaluate. Seen by speech. Requested VSE. VSE 09/01
Neurology following, was transferred to ICU 08/29 for cerebell. EEG indicated status epilepticus. Now on Keppra, Vimpat.
-okay for IV heparin drip per Neuro Dr machado no bolus given patient on Eliquis for A-fib history also DVT unable to swallow due to obtunded state. Can transition back to Eliquis if okay with neurology once mental status improves and patient able to
tolerate p.o.
-MRI brain does not appear to have acute CVA
CT, CTA noted. Severe atherosclerotic plaque. Discussed with neurology, gymnastics coach. Does not believe any vascular intervention will improve any functional of the patient. Discussed with [facility] staff and appears that patient is mostly
bedbound. Prognosis appears guarded.
ABG without hypercarbia
Mental status waxes and wanes. Currently lethargic. Failed speech and swallow. VSE with possible aspiration. Speech to continue to follow. Goals of care discussions can be done with the patient as concern for competency with waxing and weaning
mental status. Consult psychiatry. Her point of contact is niece that is listed in the chart. Per [facility] patient made herself DNR a while back however there is no living will.
Decline in mental status could also be postseizure. Continue to closely monitor
NECK CTA:
1. SEVERE STENOSIS (greater than 70% diameter) in the PROXIMAL RIGHT ICA.
2. 50-70% diameter stenosis in the proximal left ICA.
3. No CTA evidence for stenosis in the cervical segments of the vertebral arteries.
4. Moderate calcific atherosclerotic plaque in the coronary arteries.
5. Severe discogenic degenerative disease at C5/C6.
6. Mild multilevel spinal cord compression and central canal stenosis.
HEAD CTA:
1. Severe atherosclerotic plaque in BOTH INTRACRANIAL INTERNAL CAROTID ARTERIES causing SEVERE STENOSES (greater than 70% diameter).
2. Complete occlusion of the A1 segment of the right anterior cerebral artery.
3. Greater than 70% diameter stenosis in the left intracranial vertebral artery.
4. 50-70% diameter stenosis in the right intracranial vertebral artery.
5. 50-70% diameter stenosis in the basilar artery.
6. COMPLETE OCCLUSION of the P3 segment of the RIGHT POSTERIOR CEREBRAL ARTERY.
7. Chronic transcortical infarcts in the posterior occipital lobes and right parietal lobe.
8. Moderate white matter leukoaraiosis in both cerebral hemispheres.
CXR: No evidence for pneumonia, severe DDD thoracic lumbar spine
#Chronic stenosis bilateral carotid arteries
Severe stenosis> 70% proximal right ICA, left ICA
#ALEXANDRA on CKD 4
History of Proteus UTI December 2023
Creat 2.5/bun 64 baseline appears 1.6. Creatinine 1.6 was 2023. Unclear if renal function progressively has gotten worse. Will monitor. Creatinine 1.7 today
-Urinalysis negative
-Hold lisinopril 40 mg daily, torsemide 40 mg daily
fever 08/29
will need to r/o infection
ua neg; xray doesnt suggest PNA
could have aspiration event given lethargy or could be secondary to seizure
Blood culture negative so far. DC further Zosyn and monitor
Hypernatremia
Started D5 water, repeat sodium later today
Continue to monitor
Hypercalcemia
Improving
#Dementia with chronic bedbound status
Baseline oriented x 1 however per intermediate does get her needs known
Patient currently obtunded does not respond to name
#History of aspiration pneumonia 12/18/2023
History of reported chronic hypoxic respiratory failure on O2 at intermediate
Will monitor pulse ox
#HTN
hydralazine prn
#HLD
Was on atorvastatin
#A-fib�permanent
Unable to take due to being obtunded- Cardizem 120 mg daily, Eliquis 5 mg twice daily
Currently started on Cardizem drip, if cleared by speech then can start oral Cardizem and can wean Cardizem gtt
cw IV hep
EK bpm, A-fib QTc B513 MS chronic nonspecific T wave abnormality anterolateral leads
#DM 2
Accu-Cheks with SSI,
Hypoglycemia coverage
#Normocytic anemia
monitor
#Depression
Prior Zoloft
#Chronic lymphedema venous stasis bilateral lower extremities
Hold torsemide 40 mg daily
#Insomnia
Hold melatonin 3 mg at bedtime
DVT prophylaxis
IV heparin drip since patient obtunded unable to take oral Eliquis
DNR per [facility]
Called daughter 12/15, left voicemail
Discussed with daughter 12/16; discussed hospital course along with poor prognosis if symptoms do not improve. She does have understanding of patient's complex medical illness
I spent a total of 54 minutes with the patient or on the floor. More than 50% of this time involved counseling and coordination of care.
Anticipated Discharge: > 48 hours
Subjective/Interval History
-
Date of Service: September 02, 2025
Lethargic
Objective Data
-
Labs:
Laboratory Results
09/02/25 09/02/25 09/02/25
03:48 13:01 13:16
WBC 8.1
Hgb 12.5
Hct 39.0
Plt Count 154 D
APTT 37.0 H Pending
Sodium 146 H D Pending
Potassium 5.0 D
Chloride 118 H
Carbon Dioxide 17 L
BUN 28 H
Creatinine 1.7 H
Glucose 136 H
Calcium 10.6 H
Vital Signs:
Vital Signs
Temp Pulse Resp BP Pulse Ox
98.5 F 90 11 212/92 100
09/02/25 12:09 09/02/25 12:00 09/02/25 05:10 09/02/25 12:00 09/02/25 05:10
I&O
09/01/25 09/02/25 09/03/25
06:59 06:59 06:59
Intake Total 1595 / 1665 692.0 / 704.0 242 / 242
Output Total 1150 / 1150 800 / 800
Balance 445 / 515 -108.0 / -96.0 242 / 242
[2025-09-02 14:06] LABS: Sodium 144 mmol/L (135-145)
--- NOTE | 2025-09-02 15:00 | PTCARENOTE ---
BP briefly improved after IV Metoprolol. Now 151-190s/94-110s. Prn Hydralazine given IV per order, see NOV.
[2025-09-02] MEDS: APRESOLINE 5 MG IV ×2 (15:17→19:07)
--- NOTE | 2025-09-02 16:00 | PTCARENOTE ---
BP improved after Hydralazine.
[2025-09-02] MEDS: HEPARIN 25000 UNITS/250 ML IV (16:05)
--- NOTE | 2025-09-02 18:00 | PTCARENOTE ---
Incontinent of moderate amount of urine. Has only voided via purewick 100cc. Bladder scanned for 459cc. Straight cathd for 425cc.
[2025-09-02 18:12] LABS: Glucose - Point of Care 179 mg/dl (70-99)
--- NOTE | 2025-09-02 18:30 | PTCARENOTE ---
BP continues to be elevated diastolically, double checked manually, DBP 115-120. BP Currently 166/120. Cardizem gtt for rapid Afib at 5mg, HR currently controlled 79-81. 5mg Metoprolol was given IVP x 1 at 1200. 5mg Hydralazine given at 1517--too
soon for prn. No NGT, NPO. On Heparin gtt for Afib so at risk for nosebleed if NGT placed. Dr. Keating updated. One time order for additional dose of Hydralazine 5mg IVP given, see NOV. Night CURB SUPERVISOR for IMU Radha Mora also updated. Heparin gtt on Hold
at 1910 for one hour for PTT of 149.3.
Report given verbally to oncoming shift, Elissa Perez RN. Bedside rounds complete. Questions answered.
[2025-09-02 18:51] LABS: APTT 149.3 Sec (23.4-35.0)
[2025-09-02] MEDS: APRESOLINE IV (19:04)
--- NOTE | 2025-09-02 19:38 | PTCARENOTE ---
During report, noted abdominal xray from 08/30--fecal impaction of rectum and moderate colonic stool burden.No BM since admission. Radha Mora APN notified for new orders. Marleny minaya RN aware.
[2025-09-02] MEDS: FLEET PHOSPHATE ENEMA-ADULT 135 ML RECTAL (20:12)
[2025-09-02 23:48] LABS: Glucose - Point of Care 198 mg/dl (70-99)
[2025-09-03] VITALS (28 sets, daily range): BP systolic 121–189; BP diastolic 70–130; BMI 26.1
[2025-09-03 03:26] LABS: Hematocrit 35.7 % (37.0-47.0); Hemoglobin 11.6 g/dL (12.0-16.0); Mean Corp Hgb Conc. 32.5 g/dL (33.0-37.0); Mean Corpuscular Volume 86.9 fL (81.0-99.0); Nucleated Red Blood Cells % 0 %; Platelet Count 177 10^3/uL (130-400); Red Cell Dist. Width 13.4 % (11.5-14.5)
[2025-09-03 03:45] LABS: Blood Urea Nitrogen 29 mg/dl (7-17); Calcium 10.5 mg/dl (8.4-10.2); Carbon Dioxide 21 mmol/L (22-30); Chloride 117 mmol/L (98-107); Estimated Creatinine Clearance 23 ml/min; Glucose 203 mg/dl (70-99); Potassium 4.8 mmol/L (3.5-5.1); Sodium 144 mmol/L (135-145); eGFR 29.75
[2025-09-03 04:37] LABS: APTT 73.8 Sec (23.4-35.0)
[2025-09-03] MEDS: D5W 1000 IV (05:28)
--- NOTE | 2025-09-03 05:34 | PTCARENOTE ---
Pt given fleets enema as ordered, incontinent of large amount of loose liquid stool with moderate amount of soft/formed stool.
[2025-09-03 06:11] LABS: Glucose - Point of Care 187 mg/dl (70-99)
[2025-09-03] MEDS: APRESOLINE 5 MG IV ×2 (06:12→13:48)
[2025-09-03] MEDS: NOVOLOG FLEXPEN-MODERATE RESISTANCE 300 UNITS SC (06:13)
[2025-09-03] MEDS: DESENEX/MITRAZOL/ZEASORB 1 APPLIC TOPICAL ×2 (07:30→23:38)
[2025-09-03] MEDS: KEPPRA 500 MG IV ×2 (07:31→20:38)
[2025-09-03] MEDS: VIMPAT 100 MG IV ×2 (07:32→20:38)
[2025-09-03] MEDS: NOVOLOG FLEXPEN-MODERATE RESISTANCE 1 UNITS SC (11:42)
[2025-09-03 11:52] LABS: APTT 79.1 Sec (23.4-35.0)
[2025-09-03 11:57] LABS: Glucose - Point of Care 173 mg/dl (70-99)
[2025-09-03] MEDS: CARDIZEM 125 IV (12:12)
--- NOTE | 2025-09-03 13:15 | CS.PSYCHR ---
Consult Summary - Psychiatry
-
Patient seen by me on 09/03/2025 from 1:05-1:30pm
Psychiatry consult for capacity to make medical decisions. 70 yo female with dementia and extensive medical history noted below admitted from [facility] on 08/28/2025 during which time she presented obtunded/rigid and found to be status epilepticus.
At this time patient is oriented to self and year of . She answers 1955 twice when asked the current year. She is unable to tell me she is at [facility] but nods yes when I tell her. She cannot tell me why she is at the hospital but
says 'that's what they told me' when asked about her seizures. She cannot connect that to her reason for admission. She is unable to share her current medical issues, recommendations/alternative treatments and their potential risks and benefits or
risks of not complying with medical care. She asks for water multiple times despite explanation of purpose of Dobhoff tube.
MSE- slow impoverished speech. orientation as noted above. responses unrelated to questions asked. poor insight. impaired judgement.
Past psych- chart indicates a history of depression. prescribed melatonin 3mg HS, zoloft 25mg daily
PMH- dementia, cortical blindness. left parietal occipital lobe CVA with mild petechial hemorrhage 09/15/2021, left subcortical basal ganglia CVA, dementia with bedbound status oriented x 1 at baseline, HTN, chronic bilateral carotid stenosis greater
than 70%, aspiration pneumonia December 2021, DM 2, permanent A-fib,DVT right lower extremity 03/04/2021, HLD, CKD 4, chronic Serrano catheter on admission, depression, GI bleed lower 2021, chronic lymphedema bilateral lower legs with chronic venous
stasis, insomnia, Proteus UTI December 2023, chronic hypoxic respiratory failure on oxygen at jail
Social- Lives at [facility]; has a niece in [place]
Family history- unable to obtain due to patient's mental status
A/P- 70 yo female with extensive medical history including dementia now with altered mental status/waxing and waning of consciousness. Patient does not demonstrate capacity for medical decision making at this time. If there is no next of kin
available then next step would be court appointed guardianship. Will notify primary team.
--- NOTE | 2025-09-03 16:00 | W.PN.HOSP.TC ---
Today's Communication/Plan
-
Monitor vital signs and see plan
Continue with antiepileptic
Start tube feed
VSE Friday; speech following
cardizem gtt
monitor sodium
Bladder scan, monitor renal function
Goals of care discussion is complicated since there is no legal power of lead application architect. Discussed with psychiatry, patient is not competent to make any medical decisions at this time. used car sales manager aware and will evaluate on Friday regarding if need
guardianship
Assessment / Plan
Assessment / Plan
General: Other ( rigid extremities)
HEENT: NormoCephalic, Anicteric, [place] Conjunctivae
Respiratory: Clear; No Wheezes, Rales or Rhonchi
Cardiac: S1/S2 and Irregular Rhythm
GI: Soft, Non Tender, Non Distended, Normal Bowel Sounds
Musculoskeletal: No Edema
Neuro: AAOx 0-1
Psych: baseline dementia per NH
Change in mental status likely be secondary to seizure
Mental status has now been improving however still unable to pass speech evaluation. Per [facility] staff, at baseline patient mental status is 0-1
#History of prior CVAs,�left parietal occipital lobe 09/15/2021 with mild petechial hemorrhage, left subcortical basal ganglia CVA baseline oriented x 1 bedbound
COVID and flu negative, urinalysis negative, CXR negative, had a temp earlier in hospitalization which was likely thought was secondary to seizure. Blood culture negative so far. Zosyn stopped
- Allergy to aspirin
Seen by speech. Requested VSE. VSE 09/01 showed aspiration. Currently NPO. Plan for repeat VSE 09/05
Neurology following, was transferred to ICU 08/29 for cerebell. EEG indicated status epilepticus. Now on Keppra, Vimpat.
Currently on IV heparin
-MRI brain does not appear to have acute CVA
CT, CTA noted. Severe atherosclerotic plaque. Discussed with neurology, artificial stone applicator. Does not believe any vascular intervention will improve any functional of the patient. Discussed with [facility] staff and appears that patient is mostly
bedbound. Prognosis appears guarded.
Goals of care discussion is complicated since there is no legal power of lead application architect. Discussed with psychiatry, patient is not competent to make any medical decisions at this time. used car sales manager aware and will evaluate on Friday regarding if need
guardianship
ABG without hypercarbia
Her point of contact is niece that is listed in the chart. however she didnt even knew where patient was until now. Per [facility] patient made herself DNR a while back however there is no living will.
Has not had any oral intake in days, discussed with RN. Patient does not have any documentation which would say against feeding tube. Started NG tube and tube feeding.
Will need GOC discussion if move towards PEG tube
NECK CTA:
1. SEVERE STENOSIS (greater than 70% diameter) in the PROXIMAL RIGHT ICA.
2. 50-70% diameter stenosis in the proximal left ICA.
3. No CTA evidence for stenosis in the cervical segments of the vertebral arteries.
4. Moderate calcific atherosclerotic plaque in the coronary arteries.
5. Severe discogenic degenerative disease at C5/C6.
6. Mild multilevel spinal cord compression and central canal stenosis.
HEAD CTA:
1. Severe atherosclerotic plaque in BOTH INTRACRANIAL INTERNAL CAROTID ARTERIES causing SEVERE STENOSES (greater than 70% diameter).
2. Complete occlusion of the A1 segment of the right anterior cerebral artery.
3. Greater than 70% diameter stenosis in the left intracranial vertebral artery.
4. 50-70% diameter stenosis in the right intracranial vertebral artery.
5. 50-70% diameter stenosis in the basilar artery.
6. COMPLETE OCCLUSION of the P3 segment of the RIGHT POSTERIOR CEREBRAL ARTERY.
7. Chronic transcortical infarcts in the posterior occipital lobes and right parietal lobe.
8. Moderate white matter leukoaraiosis in both cerebral hemispheres.
CXR: No evidence for pneumonia, severe DDD thoracic lumbar spine
#Chronic stenosis bilateral carotid arteries
Severe stenosis> 70% proximal right ICA, left ICA
#ALEXANDRA on CKD 4
History of Proteus UTI December 2023
Creat 2.5/bun 64 baseline appears 1.6. Creatinine 1.6 was 2023. Unclear if renal function progressively has gotten worse. Will monitor. Creatinine 1.8 today
-Urinalysis negative
-Hold lisinopril 40 mg daily, torsemide 40 mg daily
fever 08/29
will need to r/o infection
ua neg; xray doesnt suggest PNA
could have aspiration event given lethargy or could be secondary to seizure
Blood culture negative so far. DC further Zosyn and monitor
Constipation
Now improving
Continue laxatives
Hypernatremia
Now on tube feed with free free water flushes
Continue to monitor
Hypercalcemia
Improving
#Dementia with chronic bedbound status
Baseline oriented x 1 however per [facility] does get her needs known
Patient was obtunded on admission, mental status slowly improving
#History of aspiration pneumonia 12/18/2023
History of reported chronic hypoxic respiratory failure on O2 at [facility]
Will monitor pulse ox; on room air here
#HTN
hydralazine prn
#HLD
Was on atorvastatin
#A-fib�permanent
Unable to take due to being obtunded- Cardizem 120 mg daily, Eliquis 5 mg twice daily
Currently started on Cardizem drip
cw IV hep
EK bpm, A-fib QTc B513 MS chronic nonspecific T wave abnormality anterolateral leads
#DM 2
Accu-Cheks with SSI,
Hypoglycemia coverage
#Normocytic anemia
monitor
#Depression
Prior Zoloft
#Chronic lymphedema venous stasis bilateral lower extremities
Hold torsemide 40 mg daily
#Insomnia
Hold melatonin 3 mg at bedtime
Legally blind
DVT prophylaxis
IV heparin drip since patient obtunded unable to take oral Eliquis
DNR per [facility]
Discussed with niece intermittently; discussed hospital course along with poor prognosis if symptoms do not improve. She does have understanding of patient's complex medical illness
Goals of care discussion is complicated since there is no legal power of lead application architect. Discussed with psychiatry, patient is not competent to make any medical decisions at this time. used car sales manager aware and will evaluate on Friday regarding if need
guardianship
I spent a total of 53 minutes with the patient or on the floor. More than 50% of this time involved counseling and coordination of care.
Anticipated Discharge: > 48 hours
Subjective/Interval History
-
Date of Service: September 03, 2025
more awake but still cant pass speech eval
Objective Data
-
Labs:
Laboratory Results
09/03/25 09/03/25
02:59 10:57
APTT 73.8 H 79.1 H
Vital Signs:
Vital Signs
Temp Pulse Resp BP Pulse Ox
98.3 F 110 9 132/93 99
09/03/25 12:44 09/03/25 14:00 09/03/25 14:00 09/03/25 14:00 09/03/25 14:00
I&O
09/02/25 09/03/25 09/04/25
06:59 06:59 06:59
Intake Total 692.0 / 704.0 1414 / 1474 520 / 520
Output Total 800 / 800 525 / 525
Balance -108.0 / -96.0 889 / 949 520 / 520
--- NOTE | 2025-09-03 16:18 | PTCARENOTE ---
Unable to flush dobhoff tube, Tube feeds kept occluding, had to remove and place new DHT awaiting Xray for confirmation.
[2025-09-03] MEDS: MIRALAX 17 GRAMS TUBE (16:48)
[2025-09-03] MEDS: COLACE LIQUID 100 MG TUBE ×2 (16:48→20:38)
[2025-09-03] MEDS: ZOLOFT 25 MG TUBE (16:59)
[2025-09-03] MEDS: NOVOLOG FLEXPEN-MODERATE RESISTANCE 3 UNITS SC ×2 (17:13→23:40)
[2025-09-03 17:29] LABS: Glucose - Point of Care 225 mg/dl (70-99)
[2025-09-03 23:51] LABS: Glucose - Point of Care 222 mg/dl (70-99)
[2025-09-04] VITALS (12 sets, daily range): BP systolic 100–124; BP diastolic 63–88; BMI 27.3
[2025-09-04 05:25] LABS: Hematocrit 32.0 % (37.0-47.0); Hemoglobin 10.6 g/dL (12.0-16.0); Mean Corp Hgb Conc. 33.1 g/dL (33.0-37.0); Mean Corpuscular Volume 86.0 fL (81.0-99.0); Nucleated Red Blood Cells % 0 %; Platelet Count 171 10^3/uL (130-400); Red Cell Dist. Width 13.7 % (11.5-14.5)
[2025-09-04 05:36] LABS: APTT 88.8 Sec (23.4-35.0)
--- NOTE | 2025-09-04 05:55 | PTCARENOTE ---
Pt with no further urine output after 23:00. Bladder scanned for >508, straight cath for 550ml. Pt agitated and then had large mixed BM--loose/soft and with large hard formed stool. Pt now calm and resting.
[2025-09-04 06:13] LABS: Blood Urea Nitrogen 31 mg/dl (7-17); Calcium 10.1 mg/dl (8.4-10.2); Carbon Dioxide 18 mmol/L (22-30); Chloride 114 mmol/L (98-107); Glucose 208 mg/dl (70-99); Potassium 4.0 mmol/L (3.5-5.1); Sodium 139 mmol/L (135-145)
[2025-09-04] MEDS: NOVOLOG FLEXPEN-MODERATE RESISTANCE 5 UNITS SC ×2 (06:17→23:41)
[2025-09-04 06:27] LABS: Glucose - Point of Care 256 mg/dl (70-99)
[2025-09-04 08:42] LABS: Estimated Creatinine Clearance 19 ml/min; eGFR 23.38
[2025-09-04] MEDS: NOVOLIN N vial 0.05 UNITS SC (09:43)
[2025-09-04] MEDS: VIMPAT 100 MG IV ×2 (09:51→20:06)
[2025-09-04] MEDS: COLACE LIQUID 100 MG TUBE ×2 (09:53→20:05)
[2025-09-04] MEDS: MIRALAX 17 GRAMS TUBE (09:53)
[2025-09-04] MEDS: ZOLOFT 25 MG TUBE (09:54)
[2025-09-04] MEDS: DESENEX/MITRAZOL/ZEASORB 1 APPLIC TOPICAL ×2 (09:54→20:05)
[2025-09-04] MEDS: KEPPRA 500 MG IV ×2 (09:58→20:05)
[2025-09-04 11:28] LABS: Glucose - Point of Care 217 mg/dl (70-99)
[2025-09-04] MEDS: NOVOLOG FLEXPEN-MODERATE RESISTANCE 3 UNITS SC ×2 (12:50→18:27)
[2025-09-04] MEDS: HEPARIN 25000 UNITS/250 ML IV (12:54)
--- NOTE | 2025-09-04 13:13 | W.PN.HOSP.TC ---
Today's Communication/Plan
-
Monitor vitals
See plan
Bladder scan
Continue with Cardizem, heparin
Continue with antiepileptic
Monitor mental status closely
Continue with Dobbhoff tube feeding
Monitor sodium
Need to discuss tomorrow with [facility] if there is any documentation on who can make medical decisions on patient's behalf. Currently there is no POLST form. Niece is listed as part of contact however per Mellissa (Sravani), she does not recall
signing any POA paperwork however is willing to participate in decision making if she would be appointed.
Assessment / Plan
Assessment / Plan
General: Other ( rigid extremities)
HEENT: NormoCephalic, Anicteric, [place] Conjunctivae,+feeding tube
Respiratory: Clear; No Wheezes, Rales or Rhonchi
Cardiac: S1/S2 and Irregular Rhythm
GI: Soft, Non Tender, Non Distended, Normal Bowel Sounds
Musculoskeletal: No Edema
Neuro: AAOx 0-1
Psych: baseline dementia
Change in mental status likely be secondary to seizure
Mental status has now been improving however still unable to pass speech evaluation. Per [facility] staff, at baseline patient mental status is 0-1
#History of prior CVAs,�left parietal occipital lobe 09/15/2021 with mild petechial hemorrhage, left subcortical basal ganglia CVA baseline oriented x 1 bedbound
COVID and flu negative, urinalysis negative, CXR negative, had a temp earlier in hospitalization which was likely thought was secondary to seizure. Blood culture negative so far. Zosyn stopped
- Allergy to aspirin
Seen by speech. Requested VSE. VSE 09/01 showed aspiration. Currently NPO. Plan for repeat VSE 09/05
Neurology following, was transferred to ICU 08/29 for cerebell. EEG indicated status epilepticus. Now on Keppra, Vimpat.
Now in IMU
Currently on IV heparin, will eventually transition to Eliquis if does not need any procedure
-MRI brain does not appear to have acute CVA
CT, CTA noted. Severe atherosclerotic plaque. Discussed with neurology, operations systems specialist. Does not believe any vascular intervention will improve any functional of the patient. Discussed with [facility] staff and appears that patient is mostly
bedbound. Prognosis appears guarded.
Goals of care discussion is complicated since there is no legal power of water taxi captain. Discussed with psychiatry, patient is not competent to make any medical decisions at this time. hospitality services manager aware and will evaluate on Friday regarding if need
guardianship
ABG without hypercarbia
Her point of contact is niece that is listed in the chart. however she didnt even knew where patient was until now. Per [facility] patient made herself DNR a while back however there is no living will.
Has not had any oral intake in days, discussed with RN. Patient does not have any documentation which would say against feeding tube. Started NG tube and tube feeding. cw tube feeds through N[facility] for now
Will need GOC discussion if move towards PEG tube. hospitality services manager over the weekend was made aware of this situation. Will need to address this tomorrow and need to see if would need a court appointed guardianship. Per psychiatry patient is not
competent to make medical decisions at this time
Repeat VSE 09/05
NECK CTA:
1. SEVERE STENOSIS (greater than 70% diameter) in the PROXIMAL RIGHT ICA.
2. 50-70% diameter stenosis in the proximal left ICA.
3. No CTA evidence for stenosis in the cervical segments of the vertebral arteries.
4. Moderate calcific atherosclerotic plaque in the coronary arteries.
5. Severe discogenic degenerative disease at C5/C6.
6. Mild multilevel spinal cord compression and central canal stenosis.
HEAD CTA:
1. Severe atherosclerotic plaque in BOTH INTRACRANIAL INTERNAL CAROTID ARTERIES causing SEVERE STENOSES (greater than 70% diameter).
2. Complete occlusion of the A1 segment of the right anterior cerebral artery.
3. Greater than 70% diameter stenosis in the left intracranial vertebral artery.
4. 50-70% diameter stenosis in the right intracranial vertebral artery.
5. 50-70% diameter stenosis in the basilar artery.
6. COMPLETE OCCLUSION of the P3 segment of the RIGHT POSTERIOR CEREBRAL ARTERY.
7. Chronic transcortical infarcts in the posterior occipital lobes and right parietal lobe.
8. Moderate white matter leukoaraiosis in both cerebral hemispheres.
CXR: No evidence for pneumonia, severe DDD thoracic lumbar spine
#Chronic stenosis bilateral carotid arteries
Severe stenosis> 70% proximal right ICA, left ICA
#ALEXANDRA on CKD 4
History of Proteus UTI December 2023
Creat 2.5/bun 64 baseline appears 1.6. Creatinine 1.6 was 2023. Unclear if renal function progressively has gotten worse. Will monitor. Creatinine 2's today
-Urinalysis negative
-Hold lisinopril 40 mg daily, torsemide 40 mg daily
Intermittent straight cath, bladder scan
fever 12/15
will need to r/o infection
ua neg; xray doesnt suggest PNA
could have aspiration event given lethargy or could be secondary to seizure
Blood culture negative so far. DC further Zosyn and monitor
Constipation
Now improving
Continue laxatives
Hypernatremia
Now on tube feed with free free water flushes
Continue to monitor
Hypercalcemia
Improving
#Dementia with chronic bedbound status
Baseline oriented x 1 however per [facility] does get her needs known
Patient was obtunded on admission, mental status slowly improving
#History of aspiration pneumonia 12/18/2023
History of reported chronic hypoxic respiratory failure on O2 at [facility]
Will monitor pulse ox; on room air here
#HTN
hydralazine prn
#HLD
Was on atorvastatin
#A-fib�permanent
Cardizem 120 mg daily, Eliquis 5 mg twice daily
Currently started on Cardizem drip. Transition to p.o. Cardizem when stable
cw IV hep
#DM 2
Accu-Cheks with SSI,
Hypoglycemia coverage
Now blood sugar creeping up with tube feeds. Start Lantus
#Normocytic anemia
monitor
#Depression
Prior Zoloft
Chronic CHF with preserved EF
Torsemide on hold, monitor clinically
#Chronic lymphedema venous stasis bilateral lower extremities
Hold torsemide 40 mg daily; monitor clinically
Baseline dementia
Monitor
#Insomnia
Hold melatonin 3 mg at bedtime
Legally blind
DVT prophylaxis
IV heparin drip
DNR per [facility]
Discussed with lalo intermittently; discussed hospital course along with poor prognosis if symptoms do not improve. She does have understanding of patient's complex medical illness. Need to discuss tomorrow with [facility] if there is any
documentation on who can make medical decisions on patient's behalf. Currently there is no POLST form. Lalo is listed as part of contact however per Mellissa (Sravani), she does not recall signing any POA paperwork however is willing to participate
in decision making if she would be appointed.
Goals of care discussion is complicated since there is no legal power of water taxi captain. Discussed with psychiatry, patient is not competent to make any medical decisions at this time. hospitality services manager aware and will evaluate on Friday regarding if need
guardianship
I spent a total of 52 minutes with the patient or on the floor. More than 50% of this time involved counseling and coordination of care.
Anticipated Discharge: > 48 hours
Subjective/Interval History
-
Date of Service: September 04, 2025
Waxing and waning mental status
Objective Data
-
Labs:
Laboratory Results
09/04/25
05:11
WBC 8.1
Hgb 10.6 L
Hct 32.0 L
Plt Count 171
APTT 88.8 H
Sodium 139
Potassium 4.0
Chloride 114 H
Carbon Dioxide 18 L
BUN 31 H
Creatinine 2.2 H
Glucose 208 H
Calcium 10.1
Vital Signs:
Vital Signs
Temp Pulse Resp BP Pulse Ox
98.8 F 76 17 112/77 98
09/04/25 04:00 09/04/25 06:30 09/04/25 06:30 09/04/25 06:00 09/04/25 06:30
I&O
09/03/25 09/04/25 09/05/25
06:59 06:59 06:59
Intake Total 1414 / 1474 1485 / 1485
Output Total 525 / 525 250 / 250 550 / 550
Balance 889 / 949 1235 / 1235 -550 / -550
[2025-09-04] MEDS: CARDIZEM 125 IV (18:22)
[2025-09-04 18:37] LABS: Glucose - Point of Care 241 mg/dl (70-99)
--- NOTE | 2025-09-04 19:10 | PTCARENOTE ---
patient in bed . patient open eyes to pain stimuli. Able to say her name. Restraints taking off in am Afib 73 Heparin 1000 Cardizem 5
[2025-09-04] MEDS: LANTUS 0.07 UNITS SC (23:41)
[2025-09-04 23:51] LABS: Glucose - Point of Care 280 mg/dl (70-99)
[2025-09-05] VITALS (12 sets, daily range): BP systolic 111–145; BP diastolic 68–96; BMI 27.6
[2025-09-05 04:20] LABS: Hematocrit 31.9 % (37.0-47.0); Hemoglobin 10.2 g/dL (12.0-16.0); Mean Corp Hgb Conc. 32.0 g/dL (33.0-37.0); Mean Corpuscular Volume 85.3 fL (81.0-99.0); Nucleated Red Blood Cells % 0 %; Platelet Count 172 10^3/uL (130-400); Red Cell Dist. Width 14.1 % (11.5-14.5)
[2025-09-05 04:23] LABS: APTT 72.3 Sec (23.4-35.0)
[2025-09-05 04:27] LABS: Blood Urea Nitrogen 38 mg/dl (7-17); Calcium 9.6 mg/dl (8.4-10.2); Carbon Dioxide 20 mmol/L (22-30); Chloride 110 mmol/L (98-107); Estimated Creatinine Clearance 18 ml/min; Glucose 173 mg/dl (70-99); Potassium 3.8 mmol/L (3.5-5.1); Sodium 138 mmol/L (135-145); eGFR 21.06
[2025-09-05 06:13] LABS: Glucose - Point of Care 265 mg/dl (70-99)
[2025-09-05] MEDS: NOVOLOG FLEXPEN-MODERATE RESISTANCE 5 UNITS SC (06:13)
--- NOTE | 2025-09-05 06:43 | PTCARENOTE ---
Patient w/ no urine output this shift. Cr rising on AM labs. Patient bladder scanned for 231 at approximately 0330 and bladder scanned again at approximately 0630 for 275. [facility] [employer]ANCE AGENT notified. No new orders at this time. Cardizem off for HR of 88 -
see worklist.
--- NOTE | 2025-09-05 07:40 | W.PN.HOSP.TC ---
Today's Communication/Plan
-
stop Dilt gtt and start PO
continue IV HEparin gtt for now
VSE today
post VSE results will need to clarify that niece can make decisions for patient and then clarify GOC
Assessment / Plan
Assessment / Plan
General: Other ( rigid extremities)
HEENT: NormoCephalic, Anicteric, [place] Conjunctivae,+feeding tube
Respiratory: Clear; No Wheezes, Rales or Rhonchi
Cardiac: S1/S2 and Irregular Rhythm
GI: Soft, Non Tender, Non Distended, Normal Bowel Sounds
Musculoskeletal: No Edema
Neuro: AAOx 0-1
Psych: baseline dementia
NECK CTA:
1. SEVERE STENOSIS (greater than 70% diameter) in the PROXIMAL RIGHT ICA.
2. 50-70% diameter stenosis in the proximal left ICA.
3. No CTA evidence for stenosis in the cervical segments of the vertebral arteries.
4. Moderate calcific atherosclerotic plaque in the coronary arteries.
5. Severe discogenic degenerative disease at C5/C6.
6. Mild multilevel spinal cord compression and central canal stenosis.
HEAD CTA:
1. Severe atherosclerotic plaque in BOTH INTRACRANIAL INTERNAL CAROTID ARTERIES causing SEVERE STENOSES (greater than 70% diameter).
2. Complete occlusion of the A1 segment of the right anterior cerebral artery.
3. Greater than 70% diameter stenosis in the left intracranial vertebral artery.
4. 50-70% diameter stenosis in the right intracranial vertebral artery.
5. 50-70% diameter stenosis in the basilar artery.
6. COMPLETE OCCLUSION of the P3 segment of the RIGHT POSTERIOR CEREBRAL ARTERY.
7. Chronic transcortical infarcts in the posterior occipital lobes and right parietal lobe.
8. Moderate white matter leukoaraiosis in both cerebral hemispheres.
CXR: No evidence for pneumonia, severe DDD thoracic lumbar spine
Change in mental status secondary to Status Epilepticus
History of prior CVA
Vascular Dementia
Bedbound at baseline with chronic aspiration
-Mental status has now been improving however still unable to pass speech evaluation. Per [facility] staff, at baseline patient is AAO x 0-1
-no evidence of infection (see work up below)
-08/29: Cerebell in ICU showed status epilepticuc - new initiation of Keppra and Vimpat
-AC for hx Afib
-MRI without new CVA
-CTA with severe atherosclerotic plaque - vascular intervention will not improve function of patient; therefore intervention carries more risk than benefit.
Goals of care discussion is complicated since there is no legal power of research attorney. Discussed with psychiatry, patient is not competent to make any medical decisions at this time. manager operational aware and will evaluate on Friday regarding if need
guardianship
Her point of contact is niece that is listed in the chart. however she didnt even knew where patient was until now. Per [facility] patient made herself DNR a while back however there is no living will.
TF started - no documentation that patient was against this
repeat VSE this morning
#Chronic stenosis bilateral carotid arteries
Severe stenosis> 70% proximal right ICA, left ICA
-not a surgical candidate
#ALEXANDRA on CKD 4
-creatinine trending up, unclear baseline
-Hold lisinopril 40 mg daily, torsemide 40 mg daily
Intermittent straight cath, bladder scan
fever 08/29
ua neg; xray doesnt suggest PNA
could have aspiration event given lethargy or could be secondary to seizure
Blood culture negative so far. DC further Zosyn and monitor
Constipation
Now improving
Continue laxatives
Hypernatremia
Now on tube feed with free free water flushes
Continue to monitor
Hypercalcemia
Improving
#Dementia with chronic bedbound status
Baseline oriented x 1 however [facility] does get her needs known
Patient was obtunded on admission, mental status slowly improving
#History of aspiration pneumonia 12/18/2023
[facility]
Will monitor pulse ox; on room air here
#HTN
hydralazine prn
#HLD
Was on atorvastatin
#A-fib�permanent
Cardizem 120 mg daily, Eliquis 5 mg twice daily
Currently started on Cardizem drip. Transition to p.o. Cardizem when stable
cw IV hep
#DM 2
Accu-Cheks with SSI,
Hypoglycemia coverage
Now blood sugar creeping up with tube feeds. Start Lantus
#Normocytic anemia
monitor
#Depression
Prior Zoloft
Chronic CHF with preserved EF
Torsemide on hold, monitor clinically
#Chronic lymphedema venous stasis bilateral lower extremities
Hold torsemide 40 mg daily; monitor clinically
Baseline dementia
Monitor
#Insomnia
Hold melatonin 3 mg at bedtime
Legally blind
DVT prophylaxis
IV heparin drip
DNR per [facility]
Discussed with lalo intermittently; discussed hospital course along with poor prognosis if symptoms do not improve. She does have understanding of patient's complex medical illness. Need to discuss tomorrow with [facility] if there is any
documentation on who can make medical decisions on patient's behalf. Currently there is no POLST form. Lalo is listed as part of contact however per Mellissa (Sravani), she does not recall signing any POA paperwork however is willing to participate
in decision making if she would be appointed.
Goals of care discussion is complicated since there is no legal power of research attorney. Discussed with psychiatry, patient is not competent to make any medical decisions at this time. manager operational aware and will evaluate on Friday regarding if need
guardianship
I spent a total of 52 minutes with the patient or on the floor. More than 50% of this time involved counseling and coordination of care.
Anticipated Discharge: > 48 hours
Subjective/Interval History
-
Date of Service: September 05, 2025
resting comfortably
Objective Data
-
Labs:
Laboratory Results
09/05/25 09/05/25
03:52 10:45
WBC 8.5
Hgb 10.2 L
Hct 31.9 L
Plt Count 172
APTT 72.3 H Pending
Sodium 138
Potassium 3.8
Chloride 110 H
Carbon Dioxide 20 L
BUN 38 H
Creatinine 2.4 H
Glucose 173 H
Calcium 9.6
Vital Signs:
Vital Signs
Temp Pulse Resp BP Pulse Ox
97.7 F 94 15 115/68 99
09/05/25 07:27 09/05/25 07:00 09/05/25 07:00 09/05/25 06:00 09/05/25 07:00
I&O
09/04/25 09/05/25 09/06/25
06:59 06:59 06:59
Intake Total 1485 / 1485 1778.7 / 1778.7
Output Total 250 / 250 550 / 550
Balance 1235 / 1235 1228.7 / 1228.7
Review of Systems
-
Unable to obtain full review of systems at this time due to: Other (patient's dementia)
History Source: Patient
Physical Exam
-
General: No Apparent Distress
HEENT: Other (blind)
Respiratory: Clear to Auscultation
Cardiac: S1/S2 and Irregular Rhythm; Negative Tachycardic
GI: Soft, Nontender, Nondistended and Normal Bowel Sounds
Neuro: Sedated and Other (impaired vision as before); Negative No Motor Deficits
Psych: Calm; Negative Confused or Agitated
Data Reviewed
-
Diagnostic Radiology: Report Reviewed by me
Labs: Labs Reviewed by me
[2025-09-05] MEDS: VIMPAT 100 MG IV ×2 (09:13→20:10)
[2025-09-05] MEDS: COLACE LIQUID 100 MG TUBE ×2 (09:13→20:09)
[2025-09-05] MEDS: CARDIZEM CD 120 MG PO (09:13)
[2025-09-05] MEDS: ZOLOFT 25 MG TUBE (09:13)
[2025-09-05] MEDS: DESENEX/MITRAZOL/ZEASORB 1 APPLIC TOPICAL ×2 (09:15→20:09)
[2025-09-05] MEDS: MIRALAX 17 GRAMS TUBE (09:15)
[2025-09-05] MEDS: KEPPRA 500 MG IV ×2 (09:15→20:09)
[2025-09-05 11:22] LABS: APTT 82.4 Sec (23.4-35.0)
--- NOTE | 2025-09-05 11:41 | PTOTSP ---
Videofluoroscopic swallow study
Patient presents with moderate oral dysphagia and mild pharyngeal dysphagia. While aspiration did not occur, patient is at an elevated risk for this due to her current cognitive status, reduced awareness of feeding related tasks, and episodes of
delayed initiation of swallows with need for max verbal/tactile cues.
Dysphagia risk is elevated due to cognitive status and dependence for feeding assistance. Risk for aspiration complications is elevated due to bedbound status, dependence for assistance with oral care, and comorbidities.
Recommend:
1. NPO with non-oral means would be safest diet
2. Alternate option would be IDDSI 4 puree and Thin liquids for comfort understanding dysphagia/aspiration risks
3. Medications via non-oral means
4. Aspiration Risk Hydration Protocol - sips of thin water after oral care with nursing supervision if mentation appropriate
5. Dysphagia therapy at the acute care level for education, therapeutic trials of PO with clinician
[2025-09-05 11:57] LABS: Glucose - Point of Care 130 mg/dl (70-99)
[2025-09-05] MEDS: NOVOLOG FLEXPEN-MODERATE RESISTANCE SC (12:07)
--- NOTE | 2025-09-05 13:12 | CM ---
patient chart reviewed
Psychiatry note - patient is not competent to make any medical decisions
VSE today completed-see note
hospitalist to clarify if niece can make decisions for patient, then clarify GOC
PLAN: TBD, follow hospital progression, CM to continue to follow for discharge planning needs
--- NOTE | 2025-09-05 14:02 | W.PN.UPDATE ---
Update Note
Progress Note Update
I spoke to patient's niece, Mellissa. Mellissa is patient's next of kin and therefore the person who can make medical decisions for her. We discussed that after VSE today, NPO status is still recommended as patient remains high risk for aspiration.
She required max verbal/tactile cues and has waxing and waning cognition.
We talked about the risks of artificial nutrition in someone who is bedbound and has dementia. Risk of aspiration remains present.
Mellissa feels comfortable making medical decision against feeding tube for patient. We discussed hospice and that patient likely qualified here for inpatient hospice. Mellissa is requesting that she be able to visit with daughter but states earlier
she can come is Friday. She lives 4 hours away. She is going to work on coming sooner. I will call her again tomorrow morning to further discuss.
--- NOTE | 2025-09-05 14:45 | PTCARENOTE ---
Pt incont very large amount yellow urine, pericare provided, linens changed, purewick applied. Lasix and KCl elixir ordered and given per attending. See MAR for times.
[2025-09-05] MEDS: LASIX 40 MG IV (14:47)
[2025-09-05] MEDS: KCL ELIXIR 20 MEQ TUBE (14:47)
--- NOTE | 2025-09-05 17:40 | PTCARENOTE ---
Per Dr. Hamm, GOC was discussed with nibrayden and at this point there will not be plans for PEG placement, hep gtt dc'd this afternoon per orders. Per Dr. Hamm, will discuss further details of plan of care for patient tomorrow. Stable for downgrade
to tele. Tube feedings continue at this time. Pt voiding yellow urine in purewick canister. Pt remains drowsy, arousable, cooperative with care, no seizure activity noted, left arm rigid at rest and right arm stiffens when pt is stimulated. Visitor
'Chaplain Carrasco' stopped by to see patient this afternoon, stated he has not met any family members during his visits to patient at [facility]. Safe environment ongoing.
[2025-09-05 17:50] LABS: Glucose - Point of Care 241 mg/dl (70-99)
[2025-09-05] MEDS: NOVOLOG FLEXPEN-MODERATE RESISTANCE 3 UNITS SC (17:55)
[2025-09-05] MEDS: ELIQUIS 5 MG TUBE (20:09)
[2025-09-05 23:56] LABS: Glucose - Point of Care 210 mg/dl (70-99)
[2025-09-06] VITALS (9 sets, daily range): BP systolic 120–149; BP diastolic 74–96; BMI 27.4
[2025-09-06] MEDS: NOVOLOG FLEXPEN-MODERATE RESISTANCE 3 UNITS SC ×2 (00:14→12:24)
[2025-09-06] MEDS: LANTUS 0.07 UNITS SC ×2 (01:14→22:26)
[2025-09-06 03:48] LABS: Hematocrit 29.9 % (37.0-47.0); Hemoglobin 9.7 g/dL (12.0-16.0); Mean Corp Hgb Conc. 32.4 g/dL (33.0-37.0); Mean Corpuscular Volume 85.7 fL (81.0-99.0); Platelet Count 157 10^3/uL (130-400); Red Cell Dist. Width 14.4 % (11.5-14.5)
[2025-09-06 04:12] LABS: Blood Urea Nitrogen 40 mg/dl (7-17); Calcium 9.3 mg/dl (8.4-10.2); Carbon Dioxide 24 mmol/L (22-30); Chloride 108 mmol/L (98-107); Estimated Creatinine Clearance 20 ml/min; Glucose 147 mg/dl (70-99); Potassium 4.5 mmol/L (3.5-5.1); Sodium 138 mmol/L (135-145); eGFR 23.38
[2025-09-06] MEDS: NOVOLOG FLEXPEN-MODERATE RESISTANCE 1 UNITS SC (06:06)
[2025-09-06 06:16] LABS: Glucose - Point of Care 194 mg/dl (70-99)
--- NOTE | 2025-09-06 06:16 | PTCARENOTE ---
Patient w/ improved mentation compared to prior shift - remains drowsy, but cooperative w/ care. Patient voiding yellow urine in purewick canister.
--- NOTE | 2025-09-06 08:53 | W.PN.HOSP.TC ---
Addendum entered and electronically signed by Maria Ines Hamm MD 09/06/25 09:59:
I spoke to Mellissa again
We will order a pureed diet and stop tube feeds for patient. We will monitor her to see how she does to see if she qualifies for inpatient hospice here or would go back to [facility].
toxicologist to also touch base with Mellissa to discuss what hospice looks like
Original Note:
Today's Communication/Plan
-
hospice consult, comfort care talks on-going
resume home Torsemide
Assessment / Plan
Assessment / Plan
General: Other ( rigid extremities)
HEENT: NormoCephalic, Anicteric, [place] Conjunctivae,+feeding tube
Respiratory: Clear; No Wheezes, Rales or Rhonchi
Cardiac: S1/S2 and Irregular Rhythm
GI: Soft, Non Tender, Non Distended, Normal Bowel Sounds
Musculoskeletal: No Edema
Neuro: AAOx 0-1
Psych: baseline dementia
NECK CTA:
1. SEVERE STENOSIS (greater than 70% diameter) in the PROXIMAL RIGHT ICA.
2. 50-70% diameter stenosis in the proximal left ICA.
3. No CTA evidence for stenosis in the cervical segments of the vertebral arteries.
4. Moderate calcific atherosclerotic plaque in the coronary arteries.
5. Severe discogenic degenerative disease at C5/C6.
6. Mild multilevel spinal cord compression and central canal stenosis.
HEAD CTA:
1. Severe atherosclerotic plaque in BOTH INTRACRANIAL INTERNAL CAROTID ARTERIES causing SEVERE STENOSES (greater than 70% diameter).
2. Complete occlusion of the A1 segment of the right anterior cerebral artery.
3. Greater than 70% diameter stenosis in the left intracranial vertebral artery.
4. 50-70% diameter stenosis in the right intracranial vertebral artery.
5. 50-70% diameter stenosis in the basilar artery.
6. COMPLETE OCCLUSION of the P3 segment of the RIGHT POSTERIOR CEREBRAL ARTERY.
7. Chronic transcortical infarcts in the posterior occipital lobes and right parietal lobe.
8. Moderate white matter leukoaraiosis in both cerebral hemispheres.
CXR: No evidence for pneumonia, severe DDD thoracic lumbar spine
Change in mental status secondary to Status Epilepticus
History of prior CVA
Vascular Dementia
Bedbound at baseline with chronic aspiration
-Mental status has now been improving however still unable to pass speech evaluation. Per [facility] staff, at baseline patient is AAO x 0-1
-no evidence of infection (see work up below)
-08/29: Cerebell in ICU showed status epilepticuc - new initiation of Keppra and Vimpat
-AC for hx Afib
-MRI without new CVA
-CTA with severe atherosclerotic plaque - vascular intervention will not improve function of patient; therefore intervention carries more risk than benefit.
Goals of care discussion is complicated since there is no legal power of insurance attorney. Discussed with psychiatry, patient is not competent to make any medical decisions at this time. manager market intelligence aware and will evaluate on Friday regarding if need
guardianship
Her point of contact is niece that is listed in the chart. however she didnt even knew where patient was until now. Per [facility] patient made herself DNR a while back however there is no living will.
TF started - no documentation that patient was against this
repeat VSE on 09/05/25 shows NPO (puree for comfort) patient remains high aspiration risk. Patient's niece is next of kin to make decisions for her. We discussed the choice of comfort versus feeding tube. We discussed that a feeding tube there is
still aspiration risk and given patient's multiple strokes, bedbound status and dementia this can lead to more suffering. Mellissa agrees. She and daughter want to hear more about hospice (consult [facility]). They are hoping to visit her on Friday.
For now, continuing feeding tube but may transition to comfort puree diet later today after patient talks about case with hospice entrance attendant.
#Chronic stenosis bilateral carotid arteries
Severe stenosis> 70% proximal right ICA, left ICA
-not a surgical candidate
#ALEXANDRA on CKD 4
-s/p Lasix on 09/05 with improvement in renal function
-resume Torsemide
Intermittent straight cath, bladder scan
fever 08/29
ua neg; xray doesnt suggest PNA
could have aspiration event given lethargy or could be secondary to seizure
Blood culture negative so far. DC further Zosyn and monitor
Constipation
Now improving
Continue laxatives
Hypernatremia
Now on tube feed with free free water flushes
Continue to monitor
Hypercalcemia
Improving
#Dementia with chronic bedbound status
Baseline oriented x 1 however per [facility] does get her needs known
Patient was obtunded on admission, mental status slowly improving
#History of aspiration pneumonia 12/18/2023
History of reported chronic hypoxic respiratory failure on O2 at [facility]
Will monitor pulse ox; on room air here
#HTN
hydralazine prn
#HLD
Was on atorvastatin
#A-fib�permanent
Cardizem 120 mg daily, Eliquis 5 mg twice daily
#DM 2
Accu-Cheks with SSI,
continue Lantus and ISS for now
#Normocytic anemia
monitor
#Depression
Prior Zoloft
Chronic CHF with preserved EF
Resume Torsemide
#Chronic lymphedema venous stasis bilateral lower extremities
Resume Torsemide
Baseline dementia
Monitor
#Insomnia
Legally blind
DVT prophylaxis Eliquis
DNR per [facility]
I spent a total of 52 minutes with the patient or on the floor. More than 50% of this time involved counseling and coordination of care.
Anticipated Discharge: > 48 hours
Subjective/Interval History
-
Date of Service: September 06, 2025
patient a bit more alert today
can't answer questions meaningfully
Objective Data
-
Labs:
Laboratory Results
09/06/25
03:23
WBC 6.4
Hgb 9.7 L
Hct 29.9 L
Plt Count 157
Sodium 138
Potassium 4.5
Chloride 108 H
Carbon Dioxide 24
BUN 40 H
Creatinine 2.2 H
Glucose 147 H
Calcium 9.3
Vital Signs:
Vital Signs
Temp Pulse Resp BP Pulse Ox
97.4 F 84 16 120/83 98
09/06/25 08:00 09/06/25 06:00 09/06/25 06:00 09/06/25 06:00 09/06/25 06:00
I&O
09/05/25 09/06/25 09/07/25
06:59 06:59 06:59
Intake Total 1778.7 / 1854.7 1801 / 1801
Output Total 550 / 550 1000 / 1000
Balance 1228.7 / 1304.7 801 / 801
Review of Systems
-
History Source: Patient
All other systems: Reviewed and negative
Physical Exam
-
General: No Apparent Distress
HEENT: Other (blind)
Respiratory: Clear to Auscultation
Cardiac: S1/S2 and Irregular Rhythm; Negative Tachycardic
GI: Soft, Nontender, Nondistended and Normal Bowel Sounds
Neuro: Sedated and Other (impaired vision as before); Negative No Motor Deficits
Psych: Calm; Negative Confused or Agitated
Data Reviewed
-
Diagnostic Radiology: Report Reviewed by me
Labs: Labs Reviewed by me
[2025-09-06] MEDS: DEMADEX 40 MG PO (09:48)
[2025-09-06] MEDS: KEPPRA 500 MG IV ×2 (09:49→20:32)
[2025-09-06] MEDS: MIRALAX 17 GRAMS TUBE (09:49)
[2025-09-06] MEDS: VIMPAT 100 MG IV ×2 (09:49→20:33)
[2025-09-06] MEDS: ELIQUIS 5 MG TUBE (09:50)
[2025-09-06] MEDS: ZOLOFT 25 MG TUBE (09:50)
[2025-09-06] MEDS: DESENEX/MITRAZOL/ZEASORB 1 APPLIC TOPICAL ×2 (09:50→20:38)
[2025-09-06] MEDS: COLACE LIQUID 100 MG TUBE (09:50)
[2025-09-06] MEDS: CARDIZEM CD 120 MG PO (09:50)
--- NOTE | 2025-09-06 10:11 | HOSPNOTE ---
Spoke with Mellissa (niece) and explained the plan the patient will have the NG tube removed be able to try a soft diet and if patient is able to return to [facility] with their preferred hospice or the patient may need to remain here if the patient
has symptoms that could not be managed outside of the hospital setting. The niece is in agreement with plan. We will continue to follow until decision is made.
--- NOTE | 2025-09-06 10:25 | PTCARENOTE ---
Addendum entered by Bailey Vela RN 09/06/25 11:25:
Pt was asking for tea, this contract technical writer made cup of decaf hot tea which pt was able to drink with straw with assistance, states 'Ah that's good.'
Original Note:
Pt rec'd this am at 07:15 from offgoing RN, drowsy but arousable to verbal stim. Pt is AOx2-3, knows she is in hospital and Jose is coming but cannot state current month or year. Pt assessed, meds administered via DHT. As per new orders from
attending, tube feeds dc'd at 10:15, DHT removed. Pt cleared for IDDS4 diet. Restraints removed at this time. Pt fully bathed with CHG wipes, pericare, oral care and clean linens provided. Pt continues voiding large amounts urine with purewick in
place. Plan of care discussed with Dr. Hamm who has been in touch with family. (niece Mellissa) Safe environment ongoing.
[2025-09-06 12:15] LABS: Glucose - Point of Care 200 mg/dl (70-99)
--- NOTE | 2025-09-06 12:24 | PTCARENOTE ---
Pt offered food or drink for lunch, states 'I don't really want it.' Pt repositioned Q2h, voiding clear yellow urine via purewick. Transfer orders for med surg rec'd.
--- NOTE | 2025-09-06 16:00 | CM ---
Hospice following patient.
Hailey from [facility] called and given update of tentative plan
Plan: Continue w/ inpatient hospice vs. transfer to [facility] with [facility], phone # [phone]
--- NOTE | 2025-09-06 16:41 | PTCARENOTE ---
Pt reassessed, no changes -resting comfortably. Pt again declines food tray, offered water, took half a cup from straw with no s/s aspiration. Pt voided another 650 mls clear yellow urine via purewick with some leakage around, pericare and back rub
provided, safe environment maintained, pt stated she is comfortable, listening to music channel on TV.
[2025-09-06] MEDS: NOVOLOG FLEXPEN-MODERATE RESISTANCE SC (16:56)
[2025-09-06 17:06] LABS: Glucose - Point of Care 141 mg/dl (70-99)
--- NOTE | 2025-09-06 18:07 | TRANSFER ---
Pt assigned bed 2134 on 2N, report given, pt transferred in bed with all belongings.
--- NOTE | 2025-09-06 18:13 | PTCARENOTE ---
Received pt from [employer]MB[employer], pt AAOx2 (disoriented to time), purewick in place draining clear yellow, VSS, resting comfortably in bed with bed alarm in place.
[2025-09-06] MEDS: ELIQUIS 5 MG PO (20:30)
[2025-09-06] MEDS: COLACE LIQUID 100 MG PO (20:32)
[2025-09-06 21:12] LABS: Glucose - Point of Care 140 mg/dl (70-99)
[2025-09-07 03:20] VITALS: BP 150/63
[2025-09-07 06:00] VITALS: BMI 25.8
[2025-09-07 07:51] VITALS: BP 141/74
[2025-09-07 08:04] LABS: Glucose - Point of Care 161 mg/dl (70-99)
[2025-09-07] MEDS: NOVOLOG FLEXPEN-MODERATE RESISTANCE 1 UNITS SC ×3 (08:08→17:43)
[2025-09-07] MEDS: VIMPAT 100 MG IV (08:09)
[2025-09-07] MEDS: COLACE LIQUID 100 MG PO ×2 (08:09→19:33)
[2025-09-07] MEDS: MIRALAX PO ×2 (08:09→08:26)
[2025-09-07] MEDS: ZOLOFT 25 MG PO (08:09)
[2025-09-07] MEDS: ELIQUIS 5 MG PO ×2 (08:10→19:33)
[2025-09-07] MEDS: DEMADEX 40 MG PO (08:11)
[2025-09-07] MEDS: CARDIZEM CD 120 MG PO (08:12)
[2025-09-07] MEDS: KEPPRA 500 MG IV (08:12)
[2025-09-07] MEDS: DESENEX/MITRAZOL/ZEASORB 1 APPLIC TOPICAL ×2 (08:13→19:34)
[2025-09-07 09:02] LABS: Hematocrit 32.6 % (37.0-47.0); Hemoglobin 10.7 g/dL (12.0-16.0); Mean Corp Hgb Conc. 32.8 g/dL (33.0-37.0); Mean Corpuscular Volume 87.2 fL (81.0-99.0); Platelet Count 187 10^3/uL (130-400); Red Cell Dist. Width 14.5 % (11.5-14.5)
[2025-09-07 09:36] LABS: Blood Urea Nitrogen 38 mg/dl (7-17); Calcium 9.9 mg/dl (8.4-10.2); Carbon Dioxide 23 mmol/L (22-30); Chloride 106 mmol/L (98-107); Estimated Creatinine Clearance 21 ml/min; Glucose 157 mg/dl (70-99); Potassium 4.5 mmol/L (3.5-5.1); Sodium 138 mmol/L (135-145); eGFR 26.22
--- NOTE | 2025-09-07 10:01 | W.PN.HOSP.TC ---
Today's Communication/Plan
-
dispo planning for hospice at [facility]
Assessment / Plan
Assessment / Plan
General: Other ( rigid extremities)
HEENT: NormoCephalic, Anicteric, [place] Conjunctivae,+feeding tube
Respiratory: Clear; No Wheezes, Rales or Rhonchi
Cardiac: S1/S2 and Irregular Rhythm
GI: Soft, Non Tender, Non Distended, Normal Bowel Sounds
Musculoskeletal: No Edema
Neuro: AAOx 0-1
Psych: baseline dementia
NECK CTA:
1. SEVERE STENOSIS (greater than 70% diameter) in the PROXIMAL RIGHT ICA.
2. 50-70% diameter stenosis in the proximal left ICA.
3. No CTA evidence for stenosis in the cervical segments of the vertebral arteries.
4. Moderate calcific atherosclerotic plaque in the coronary arteries.
5. Severe discogenic degenerative disease at C5/C6.
6. Mild multilevel spinal cord compression and central canal stenosis.
HEAD CTA:
1. Severe atherosclerotic plaque in BOTH INTRACRANIAL INTERNAL CAROTID ARTERIES causing SEVERE STENOSES (greater than 70% diameter).
2. Complete occlusion of the A1 segment of the right anterior cerebral artery.
3. Greater than 70% diameter stenosis in the left intracranial vertebral artery.
4. 50-70% diameter stenosis in the right intracranial vertebral artery.
5. 50-70% diameter stenosis in the basilar artery.
6. COMPLETE OCCLUSION of the P3 segment of the RIGHT POSTERIOR CEREBRAL ARTERY.
7. Chronic transcortical infarcts in the posterior occipital lobes and right parietal lobe.
8. Moderate white matter leukoaraiosis in both cerebral hemispheres.
CXR: No evidence for pneumonia, severe DDD thoracic lumbar spine
Change in mental status secondary to Status Epilepticus
History of prior CVA
Vascular Dementia
Bedbound at baseline with chronic aspiration
-Mental status has now been improving however still unable to pass speech evaluation. Per [facility] staff, at baseline patient is AAO x 0-1
-no evidence of infection (see work up below)
-08/29: Cerebell in ICU showed status epilepticuc - new initiation of Keppra and Vimpat
-AC for hx Afib
-MRI without new CVA
-CTA with severe atherosclerotic plaque - vascular intervention will not improve function of patient; therefore intervention carries more risk than benefit.
Goals of care discussion is complicated since there is no legal power of attorney recruiter. Discussed with psychiatry, patient is not competent to make any medical decisions at this time. breeding manager aware and will evaluate on Friday regarding if need
guardianship
Her point of contact is niece that is listed in the chart. however she didnt even knew where patient was until now. Per [facility] patient made herself DNR a while back however there is no living will.
TF started - no documentation that patient was against this
repeat VSE on 09/05/25 shows NPO (puree for comfort) patient remains high aspiration risk. Patient's niece is next of kin to make decisions for her. We discussed the choice of comfort versus feeding tube. We discussed that a feeding tube there is
still aspiration risk and given patient's multiple strokes, bedbound status and dementia this can lead to more suffering.
[id number] ordered per [facility] (for comfort)
given patient hemodynamically stable, will plan for hospice at [facility]
#Chronic stenosis bilateral carotid arteries
Severe stenosis> 70% proximal right ICA, left ICA
-not a surgical candidate
#ALEXANDRA on CKD 4
-s/p Lasix on 09/05 with improvement in renal function
-resume Torsemide
fever 08/29
-infectious work up negative
#Dementia with chronic bedbound status
Baseline oriented x 1 however per alf does get her needs known
#A-fib�permanent
Cardizem 120 mg daily, Eliquis 5 mg twice daily - Eliquis can be stopped on hospice
#DM 2
Accu-Cheks with SSI,
continue Lantus and ISS for now
#Normocytic anemia
monitor
#Depression
Prior Zoloft
Chronic CHF with preserved EF
Resume Torsemide
#Chronic lymphedema venous stasis bilateral lower extremities
Resume Torsemide
Baseline dementia
Monitor
#Insomnia
Legally blind
DVT prophylaxis Eliquis
DNR per [facility]
Anticipated Discharge: 24 - 48 hours
Subjective/Interval History
-
Date of Service: September 07, 2025
patient appears comfortable
Objective Data
-
Labs:
Laboratory Results
09/07/25
08:08
WBC 6.6
Hgb 10.7 L
Hct 32.6 L
Plt Count 187
Sodium 138
Potassium 4.5
Chloride 106
Carbon Dioxide 23
BUN 38 H
Creatinine 2.0 H
Glucose 157 H
Calcium 9.9
Vital Signs:
Vital Signs
Temp Pulse Resp BP Pulse Ox
98.2 F 98 18 141/74 100
09/07/25 07:51 09/07/25 08:12 09/07/25 07:51 09/07/25 08:12 09/07/25 07:51
I&O
09/06/25 09/07/25 09/08/25
06:59 06:59 06:59
Intake Total 1801 / 1871 1025 / 1025
Output Total 1000 / 1000 1500 / 1500
Balance 801 / 871 -475 / -475
Review of Systems
-
History Source: Patient
All other systems: Reviewed and negative
Physical Exam
-
General: No Apparent Distress
HEENT: Other (blind)
Respiratory: Clear to Auscultation
Cardiac: S1/S2 and Irregular Rhythm; Negative Tachycardic
GI: Soft, Nontender, Nondistended and Normal Bowel Sounds
Neuro: Awake, Alert and Oriented (x1; cannot elaborate on answers)
Psych: Calm; Negative Confused or Agitated
Data Reviewed
-
Diagnostic Radiology: Report Reviewed by me
Labs: Labs Reviewed by me
[2025-09-07 11:14] VITALS: BP 160/104
--- NOTE | 2025-09-07 12:00 | CM ---
Addendum entered by Kaci Poe 09/07/25 13:10:
corrected cell phone [phone] for daughter Mellissa. CM provided phone number for [facility] to daughter. plan for return to SNF tomorrow, ambulance forms on chart. Please call report to [phone]/fax [phone]. IMM reviewed with patient
daughter and form placed on chart.
Original Note:
CM spoke with admissions at [facility] and they will accept patient for transfer to hospice when she returns. CM tt to physician , plan is for patient to return to SNF tomorrow per physician. Patient will need out of hospital DNR form completed,
form on chart. Per physician patient neice with more questions. CM will request Hospice to call and review with her. CM called to [facility] hospice to confirm that they will not be following patient. CM will continue to follow for discharge planning
needs.
Plan;
transfer to [facility] with [facility], phone # [phone]
[2025-09-07 12:38] LABS: Glucose - Point of Care 163 mg/dl (70-99)
--- NOTE | 2025-09-07 13:57 | W.DCSUMMARY ---
Discharge Summary
Discharge Data
Date of Admission: 08/28/25
Date of Discharge: 09/08/25
-
Pending Results: No
Hospital Course
Discharging Physician : Dr. Maria Ines Hamm
Disposition : Hospice at Group Home
Primary care physician : Dr. Kiera Loya
Principal Discharge diagnosis : Status Epilepticus, Severe Dysarthria
Hospital Course :
Ms. Kyara Fierro is a 70 yo woman with hx dementia (AAO x 1), bedbound at [place], multiple CVA, blindness, essential HTN, chronic bilateral carotid stenosis, chronic lymphedema who presents to the ER with change in mentation and ridigity. Triage
vitals stable. Labs without leukocytosis and renal function close to baseline. Head CT without acute event. She was admitted to medicine with Neurology consulting. EEG showed status epilepticus. She was transferred to the ICU for continuous
monitoring.
Seizures treated with Keppra and Vimpat. Brain MRI without new infarct, results below. Neck CTA with severe stenosis proximal ICA, patient not a surgical candidate.
Patient was shown to have severe dysphagia. She was given TF while awaiting reassessment. Repeat VSE on 09/05/25 results revealed that patient remains high aspiration risk. Given dementia she cannot make decisions for herself, this was documented
by Psychiatry. Patient's niece is next of kin, and therefore the one to make decisions for her. We discussed the choice of comfort versus feeding tube. We discussed that a feeding tube there is still aspiration risk and given patient's multiple
strokes, bedbound status and dementia this can lead to more suffering. IDSSI4 ordered per ST recs (for comfort) and plan made to enroll patient into hospice at [facility].
Time spent on discharge was 35 minutes.
Important imaging findings :
NECK CTA:
1. SEVERE STENOSIS (greater than 70% diameter) in the PROXIMAL RIGHT ICA.
2. 50-70% diameter stenosis in the proximal left ICA.
3. No CTA evidence for stenosis in the cervical segments of the vertebral arteries.
4. Moderate calcific atherosclerotic plaque in the coronary arteries.
5. Severe discogenic degenerative disease at C5/C6.
6. Mild multilevel spinal cord compression and central canal stenosis.
HEAD CTA:
1. Severe atherosclerotic plaque in BOTH INTRACRANIAL INTERNAL CAROTID ARTERIES causing SEVERE STENOSES (greater than 70% diameter).
2. Complete occlusion of the A1 segment of the right anterior cerebral artery.
3. Greater than 70% diameter stenosis in the left intracranial vertebral artery.
4. 50-70% diameter stenosis in the right intracranial vertebral artery.
5. 50-70% diameter stenosis in the basilar artery.
6. COMPLETE OCCLUSION of the P3 segment of the RIGHT POSTERIOR CEREBRAL ARTERY.
7. Chronic transcortical infarcts in the posterior occipital lobes and right parietal lobe.
8. Moderate white matter leukoaraiosis in both cerebral hemispheres.
Brain MRI 08/31/25
IMPRESSION:
Chronic findings as detailed above without acute abnormality. Specifically, no acute infarct.
Moderate to advanced ventriculomegaly is felt to represent an element of central greater than cortical atrophy. However, it would be difficult to exclude the possibility of normal pressure hydrocephalus in the proper clinical setting.
Procedure findings :
Discharge Plan
-
Patient Disposition: Group Home/SNF
Discharge Diagnosis/Procedures: status epilepticus; dysphagia
Diet: Other diet
Additional Diets: IDSSI 4 puree and thin liquids for comfort; medications crushed in puree
Activity: As tolerated
Driving Restrictions: No driving
Bathing Restrictions: None
Other Services: Hospice
Referrals:
Kiera Loya MD [Family Provider] - in less than 1 week
Additional Discharge Medication Instructions: You are newly started on Vimpat 100mg twice a day and Keppra 500mg twice a day for seizure prevention
Stop Lipitor, Ezetimibe, Lisinopril
Hydroxyzine stopped - you have not received during this admission.
Your Lantus dosing is decreased from 10 to 5 units as you are eating less. You can stop pre-meal insulin and have further conversations with hospice about stopping insulin completely.
Diltiazem ER is stopped as it cannot be crushed. You are started on short acting Diltiazem 30mg 3x/day (as preventing afib with RVR can contribute to comfort). However if pill burden becomes too much, this medication can be stopped.
Prescriptions:
New
miconazole nitrate [Miconazorb AF] 2 % Powder
1 applic topical BID Qty: 85 0RF
levetiracetam 500 mg Tablet
500 mg PO BID Qty: 60 0RF
lacosamide 100 mg Tablet
100 mg PO BID Qty: 60 0RF
diltiazem HCl 30 mg Tablet
30 mg PO TID Qty: 90 0RF
Continued
Eliquis 5 MG tablet
5 mg PO BID
polyethylene glycol 3350 17 GRAMS powder in packet
17 g PO DAILY PRN (Reason: constipation)
Patient Comments:
4-8 ounces of fluid
acetaminophen 325 MG tablet
650 mg PO Q6HPRN PRN (Reason: mild pain, temp>100.4)
bisacodyl [OneLAX Bisacodyl] 10 MG suppository
10 mg [place] DAILYPRN PRN (Reason: if no bm aftr mom)
insulin aspart U-100 [Novolog FlexPen U-100 Insulin] 100 unit/mL (3 mL) insulin pen
0 - 10 sliding scale dose SC AC
Patient Comments:
BS 150-200=2 units, 201-250=4 units, 251-300=6 units, 301-350=8 units, 351-400=10 units.
isosorbide mononitrate 60 mg tablet extended release 24 hr
60 mg PO QPM
torsemide 40 mg Tablet
40 mg PO DAILY
docusate sodium 100 mg capsule
100 mg PO BID
ondansetron HCl 4 mg Tablet
4 mg PO Q8H PRN (Reason: vomiting, nausea)
melatonin 3 mg Tablet
3 mg PO HS
sertraline 25 mg tablet
25 mg PO DAILY
sorbitol 70 % Solution
30 ml PO DAILYPRN PRN (Reason: constipation)
Gvoke PFS 1-Pack Syringe 1 mg/0.2 mL syringe
1 mg SC DAILYPRN PRN (Reason: hypoglycemia, bs<60)
Eucerin Advanced Repair Cream
1 applic TOPICAL DAILY
Changed
insulin glargine [Lantus Solostar U-100 Insulin] 100 unit/mL (3 mL) insulin pen
5 unit SC HS Qty: 0 0RF
Discontinued
atorvastatin 20 MG tablet
40 mg PO HS
sennosides-docusate sodium [Senna-S] 8.6-50 mg Tablet
2 tab-cap PO HS
insulin aspart U-100 [Novolog FlexPen U-100 Insulin] 100 unit/mL (3 mL) insulin pen
6 units SC AC
diltiazem HCl 120 mg Capsule,Extended Release 24hr
120 mg PO DAILY Qty: 1 0RF
hydroxyzine HCl 25 mg tablet
25 mg PO QID
lisinopril 40 mg tablet
40 mg PO DAILY
ezetimibe 10 mg tablet
10 mg PO DAILY
Discharge Orders:
Discharge Patient (As Directed); Ordered 09/08/25
Ordered By: Maria Ines Hamm
Discharge Date and Time
Print Language: ARMENIAN
[2025-09-07 15:52] VITALS: BP 165/61
[2025-09-07 17:39] LABS: Glucose - Point of Care 162 mg/dl (70-99)
[2025-09-07] MEDS: KEPPRA 500 MG PO (19:34)
[2025-09-07] MEDS: VIMPAT 100 MG PO (19:34)
[2025-09-07 21:11] LABS: Glucose - Point of Care 202 mg/dl (70-99)
[2025-09-07] MEDS: LANTUS 0.07 UNITS SC (21:18)
[2025-09-07 23:24] VITALS: BP 114/81
[2025-09-08 04:08] VITALS: BMI 26.0
[2025-09-08 07:36] VITALS: BP 102/78
--- NOTE | 2025-09-08 08:07 | W.PN.HOSP.TC ---
Today's Communication/Plan
-
discharge to [facility] today
Assessment / Plan
Assessment / Plan
Change in mental status secondary to Status Epilepticus
History of prior CVA
Vascular Dementia
Bedbound at baseline with chronic aspiration
-Mental status has now been improving however still unable to pass speech evaluation. Per [facility] staff, at baseline patient is AAO x 0-1
-no evidence of infection (see work up below)
-08/29: Cerebell in ICU showed status epilepticuc - new initiation of Keppra and Vimpat
-AC for hx Afib
-MRI without new CVA
-CTA with severe atherosclerotic plaque - vascular intervention will not improve function of patient; therefore intervention carries more risk than benefit.
Goals of care discussion is complicated since there is no legal power of aluminum pourer. Discussed with psychiatry, patient is not competent to make any medical decisions at this time. manager community development aware and will evaluate on Friday regarding if need
guardianship
Her point of contact is niece that is listed in the chart. however she didnt even knew where patient was until now. Per [facility] patient made herself DNR a while back however there is no living will.
TF started - no documentation that patient was against this
repeat VSE on 09/05/25 shows NPO (puree for comfort) patient remains high aspiration risk. Patient's niece is next of kin to make decisions for her. We discussed the choice of comfort versus feeding tube. We discussed that a feeding tube there is
still aspiration risk and given patient's multiple strokes, bedbound status and dementia this can lead to more suffering.
IDSSI4 ordered per ST rec (for comfort)
given patient hemodynamically stable, will plan for hospice at [facility]
DC to hospice at [facility] today
#Chronic stenosis bilateral carotid arteries
Severe stenosis> 70% proximal right ICA, left ICA
-not a surgical candidate
#ALEXANDRA on CKD 4
-s/p Lasix on 09/05 with improvement in renal function
-resume Torsemide
fever 08/29
-infectious work up negative
#Dementia with chronic bedbound status
Baseline oriented x 1 however per prison does get her needs known
#A-fib�permanent
Cardizem 120 mg daily, Eliquis 5 mg twice daily - Eliquis can be stopped on hospice
#DM 2
Accu-Cheks with SSI,
continue Lantus and ISS for now
#Normocytic anemia
monitor
#Depression
Prior Zoloft
Chronic CHF with preserved EF
Resume Torsemide
#Chronic lymphedema venous stasis bilateral lower extremities
Resume Torsemide
Baseline dementia
Monitor
#Insomnia
Legally blind
DVT prophylaxis Eliquis
DNR per [facility]
Anticipated Discharge: Today
Subjective/Interval History
-
Date of Service: September 08, 2025
patient in no distress
Objective Data
-
Vital Signs:
Vital Signs
Temp Pulse Resp BP Pulse Ox
98.4 F 111 18 102/78 94
09/08/25 07:36 09/08/25 07:36 09/08/25 07:36 09/08/25 07:36 09/08/25 07:36
I&O
09/07/25 09/08/25 09/09/25
06:59 06:59 06:59
Intake Total 1025 / 1025 560 / 560
Output Total 1500 / 1500 950 / 950
Balance -475 / -475 -390 / -390
Review of Systems
-
Unable to obtain full review of systems at this time due to: Patient Non-verbal
History Source: Patient
Physical Exam
-
General: No Apparent Distress
HEENT: Other (blind)
Respiratory: Clear to Auscultation
Cardiac: S1/S2 and Irregular Rhythm; Negative Tachycardic
GI: Soft, Nontender, Nondistended and Normal Bowel Sounds
Neuro: Awake, Alert and Oriented (x1; cannot elaborate on answers)
Psych: Calm; Negative Confused or Agitated
Data Reviewed
-
Diagnostic Radiology: Report Reviewed by me
Labs: Labs Reviewed by me
--- NOTE | 2025-09-08 08:10 | W.DS.TRANS ---
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
-
Discharge Instructions:
Discharge Diagnosis/Procedures status epilepticus; dysphagia
Diet Other diet
Additional Diets IDSSI 4 puree and thin liquids for comfort;
medications crushed in puree
Activity As tolerated
Driving Restrictions No driving
Bathing Restrictions None
Other Services Hospice
Instructions:
Stand-Alone Forms:
Changes to Home Medications: Yes
Discharge Medications:
DC Medications w/original date entered in [employer] [employer]
apixaban 5 mg tablet (Eliquis) 5 mg PO BID cerebral infarction 08/18/21
polyethylene glycol 3350 17 gram oral powder packet 17 g PO DAILY PRN constipation 09/15/21
acetaminophen 325 mg tablet 650 mg PO Q6HPRN PRN mild pain, temp>100.4 01/23/22
bisacodyl 10 mg rectal suppository (OneLAX Bisacodyl) 10 mg [place] DAILYPRN PRN if no bm aftr mom 01/23/22
insulin aspart U-100 100 unit/mL (3 mL) subcutaneous pen (Novolog FlexPen U-100 Insulin aspart) 0 - 10 sliding scale dose SC AC Diabetes 08/26/22
docusate sodium 100 mg capsule 100 mg PO BID Constipation 12/12/23
isosorbide mononitrate 60 mg tablet,extended release 24 hr 60 mg PO QPM Heart Condition 12/12/23
torsemide 40 mg tablet 40 mg PO DAILY Fluid Retention/Swelling 12/12/23
diltiazem HCl 120 mg capsule,extended release 24 hr 120 mg PO DAILY #1 cap 12/17/23
emollient combination no.119 (Eucerin Advanced Repair topical cream) 1 applic topical DAILY b/l L.E. 08/28/25
glucagon 1 mg/0.2 mL subcutaneous syringe (Gvoke PFS 1-Pack) 1 mg SC DAILYPRN PRN hypoglycemia, bs<60 08/28/25
melatonin 3 mg tablet 3 mg PO HS Sleep 08/28/25
ondansetron HCl 4 mg tablet 4 mg PO Q8H PRN vomiting, nausea 08/28/25
sertraline 25 mg tablet 25 mg PO DAILY Mental Health/Anxiety 08/28/25
sorbitol 70 % solution 30 ml PO DAILYPRN PRN constipation 08/28/25
insulin glargine 100 unit/mL (3 mL) subcutaneous pen (Lantus Solostar U-100 Insulin) 5 unit (0.05 mL) SC HS Diabetes #0 mL 09/07/25
lacosamide 100 mg tablet 100 mg PO BID #60 tabs 09/07/25
levetiracetam 500 mg tablet 500 mg PO BID #60 tabs 09/07/25
miconazole nitrate 2 % topical powder (Miconazorb AF) 1 applic topical BID #85 grams 09/07/25
Home Medication Changes
You are newly started on Vimpat 100mg twice a day and Keppra 500mg twice a day for seizure prevention
Stop Lipitor, Ezetimibe, Lisinopril
Hydroxyzine stopped - you have not received during this admission.
Your Lantus dosing is decreased from 10 to 5 units as you are eating less. You can stop pre-meal insulin and have further conversations with hospice about stopping insulin completely.
Pending Results: No
[2025-09-08 08:15] LABS: Glucose - Point of Care 132 mg/dl (70-99)
[2025-09-08] MEDS: NOVOLOG FLEXPEN-MODERATE RESISTANCE SC (08:39)
[2025-09-08] MEDS: DEMADEX 40 MG PO (08:42)
[2025-09-08] MEDS: KEPPRA 500 MG PO (08:42)
[2025-09-08] MEDS: VIMPAT 100 MG PO (08:42)
[2025-09-08] MEDS: ZOLOFT 25 MG PO (08:42)
[2025-09-08] MEDS: COLACE LIQUID 100 MG PO (08:42)
[2025-09-08] MEDS: ELIQUIS 5 MG PO (08:42)
[2025-09-08] MEDS: DESENEX/MITRAZOL/ZEASORB 1 APPLIC TOPICAL (08:43)
[2025-09-08] MEDS: MIRALAX 17 GRAMS PO (08:43)
[2025-09-08] MEDS: CARDIZEM CD PO (08:47)
--- NOTE | 2025-09-08 08:48 | W.DS.TRANS ---
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
-
Discharge Instructions:
Discharge Diagnosis/Procedures status epilepticus; dysphagia
Diet Other diet
Additional Diets IDSSI 4 puree and thin liquids for comfort;
medications crushed in puree
Activity As tolerated
Driving Restrictions No driving
Bathing Restrictions None
Other Services Hospice
Instructions:
Stand-Alone Forms:
Changes to Home Medications: Yes
Discharge Medications:
DC Medications w/original date entered in [employer]
apixaban 5 mg tablet (Eliquis) 5 mg PO BID cerebral infarction 08/18/21
polyethylene glycol 3350 17 gram oral powder packet 17 g PO DAILY PRN constipation 09/15/21
acetaminophen 325 mg tablet 650 mg PO Q6HPRN PRN mild pain, temp>100.4 01/23/22
bisacodyl 10 mg rectal suppository (OneLAX Bisacodyl) 10 mg [place] DAILYPRN PRN if no bm aftr mom 01/23/22
insulin aspart U-100 100 unit/mL (3 mL) subcutaneous pen (Novolog FlexPen U-100 Insulin aspart) 0 - 10 sliding scale dose SC AC Diabetes 08/26/22
docusate sodium 100 mg capsule 100 mg PO BID Constipation 12/12/23
isosorbide mononitrate 60 mg tablet,extended release 24 hr 60 mg PO QPM Heart Condition 12/12/23
torsemide 40 mg tablet 40 mg PO DAILY Fluid Retention/Swelling 12/12/23
emollient combination no.119 (Eucerin Advanced Repair topical cream) 1 applic topical DAILY b/l L.E. 08/28/25
glucagon 1 mg/0.2 mL subcutaneous syringe (Gvoke PFS 1-Pack) 1 mg SC DAILYPRN PRN hypoglycemia, bs<60 08/28/25
melatonin 3 mg tablet 3 mg PO HS Sleep 08/28/25
ondansetron HCl 4 mg tablet 4 mg PO Q8H PRN vomiting, nausea 08/28/25
sertraline 25 mg tablet 25 mg PO DAILY Mental Health/Anxiety 08/28/25
sorbitol 70 % solution 30 ml PO DAILYPRN PRN constipation 08/28/25
insulin glargine 100 unit/mL (3 mL) subcutaneous pen (Lantus Solostar U-100 Insulin) 5 unit (0.05 mL) SC HS Diabetes #0 mL 09/07/25
lacosamide 100 mg tablet 100 mg PO BID #60 tabs 09/07/25
levetiracetam 500 mg tablet 500 mg PO BID #60 tabs 09/07/25
miconazole nitrate 2 % topical powder (Miconazorb AF) 1 applic topical BID #85 grams 09/07/25
diltiazem HCl 30 mg tablet 30 mg PO TID #90 tabs 09/08/25
Home Medication Changes
You are newly started on Vimpat 100mg twice a day and Keppra 500mg twice a day for seizure prevention
Stop Lipitor, Ezetimibe, Lisinopril
Hydroxyzine stopped - you have not received during this admission.
Your Lantus dosing is decreased from 10 to 5 units as you are eating less. You can stop pre-meal insulin and have further conversations with hospice about stopping insulin completely.
Diltiazem ER is stopped as it cannot be crushed. You are started on short acting Diltiazem 30mg 3x/day (as preventing afib with RVR can contribute to comfort). However if pill burden becomes too much, this medication can be stopped.
Pending Results: No
[2025-09-08] MEDS: CARDIZEM 30 MG PO (08:54)
--- NOTE | 2025-09-08 09:27 | CM ---
Addendum entered by Ciera Aquino 09/08/25 11:06:
1pm transport
notified Aaliyah at [facility]
Original Note:
patient chart reviewed
[facility] DNR signed on chart
Patient discharged today to [facility]
left message with Monica Schaffer/Aaliyah
spoke with Vaughan from [facility]
IMM in chart
Plan: transfer to [facility] with [facility], phone # [phone], fax #: [phone]
[facility] report to [phone]/fax [phone]
transportation forms on chart
[2025-09-08 11:54] VITALS: BP 129/78
[2025-09-08 13:06] LABS: Glucose - Point of Care 205 mg/dl (70-99)
== END 2025-09-08 14:21 | DRG 101 ==
LOC: 2 NORTH 13:26
PROVIDERS: Clinical Nurse Specialist Family Health; Internal Medicine; Nurse Practitioner Family; Psychiatry & Neurology Neurology; ADMITTING PHYSICIAN Internal Medicine; ATTENDING PHYSICIAN Student in an Organized Health Care Education/Training Program; CONSULT PHYSICIAN Internal Medicine; CONSULT PHYSICIAN Psychiatry & Neurology Psychiatry; CONSULT PHYSICIAN Student in an Organized Health Care Education/Training Program; EMERGENCY PHYSICIAN Emergency Medicine; FAMILY PHYSICIAN Internal Medicine
PROC: XX20X89 Monitoring of Brain Electrical Activity, Computer-aided Detection and Notification, New Technology Group 9 (ICD-10-PCS; 2025-08-30)
DX: G40.901 Epilepsy, unspecified, not intractable, with status epilepticus (principal); F03.94 Unspecified dementia, unspecified severity, with anxiety; F03.918 Unspecified dementia, unspecified severity, with other behavioral disturbance; F03.93 Unspecified dementia, unspecified severity, with mood disturbance; I50.32 Chronic diastolic (congestive) heart failure; N18.4 Chronic kidney disease, stage 4 (severe); I13.0 Hypertensive heart and chronic kidney disease with heart failure and stage 1 through stage 4 chronic kidney disease, or unspecified chronic kidney disease; I48.21 Permanent atrial fibrillation; J96.11 Chronic respiratory failure with hypoxia; G95.20 Unspecified cord compression; N17.9 Acute kidney failure, unspecified; H54.3 Unqualified visual loss, both eyes; I65.23 Occlusion and stenosis of bilateral carotid arteries; I89.0 Lymphedema, not elsewhere classified; Z74.01 Bed confinement status; Z86.73 Personal history of transient ischemic attack (TIA), and cerebral infarction without residual deficits; G93.89 Other specified disorders of brain; Z79.01 Long term (current) use of anticoagulants; Z86.718 Personal history of other venous thrombosis and embolism; E11.42 Type 2 diabetes mellitus with diabetic polyneuropathy; F32.A Depression, unspecified; G47.00 Insomnia, unspecified; I87.8 Other specified disorders of veins; Z88.6 Allergy status to analgesic agent; Z88.1 Allergy status to other antibiotic agents; Z91.040 Latex allergy status; Z88.7 Allergy status to serum and vaccine; Z79.899 Other long term (current) drug therapy; Z79.4 Long term (current) use of insulin; I25.10 Atherosclerotic heart disease of native coronary artery without angina pectoris; I65.1 Occlusion and stenosis of basilar artery; Z87.01 Personal history of pneumonia (recurrent); E78.00 Pure hypercholesterolemia, unspecified; D64.9 Anemia, unspecified; Z66 Do not resuscitate; E11.22 Type 2 diabetes mellitus with diabetic chronic kidney disease; J45.909 Unspecified asthma, uncomplicated; Z99.81 Dependence on supplemental oxygen; Z11.52 Encounter for screening for COVID-19
CPT/HCPCS: 36600; 70450; 70496; 70498; 70551; 71045; 74018; 74230; 80048; 80053; 80061; 81003; 81015; 82140; 82550; 82607; 82728; 82746; 82805; 82962; 83036; 83735; 83880; 84100; 84295; 84443; 84484; 85025; 85027; 85610; 85730; 87040; 87502; 87811; 92526; 92610; 92611; 93005; 95708; 95813; 96360; 99285; C9254; Q9967